=== PATIENT | female | born 2000 | race Caucasian/White ===

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

== ENCOUNTER 2021-07-21 09:27 | Emergency (ER) | payer BC ==
--- OUTSIDE RECORDS SUMMARY | 2021-07-21 09:30 | XMS REPORT | Continuity of Care Document ---
:1999 Author Organization [facility] t Address [address] [place] [address] [address]. [address] [place] [address] Care Team Providers Name Role Phone G_Paplibby Attending Clinician Unavailable Florledge_Keshia Attending Clinician Unavailable DAVIDA Attending Clinician Unavailable Rafaela WILKERSON Attending Clinician Unavailable Shaun MENESES Attending Clinician Unavailable [facility] Attending Clinician Unavailable JODI Attending Clinician Unavailable Sabrina Falk Attending Clinician G_Papkortneys Admitting Clinician Unavailable Florledge_L Admitting Clinician Unavailable DAVIDA Admitting Clinician Unavailable Payers Payer Name Policy Type Policy Number Effective Date Expiration Date S g[place] [id number] 2020 00:00:00 [place] [id number] 2019 00:00:00 OUT OF STATE UMR [id number] 2017 00:00:00 Problems Condition Condition Condition Status Onset Resolution Last Treating Co mments Source Name Details Category Date Date Treatment Clinician Date Endometrio Endometrio Problem Active [facility]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 sis of 3-10 da pelvis Pelvis 00:00: Medical 00 Group 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 Dysmenorrh 2-10 da ea ea 00:00: Medical 00 Group Menorrhagi Menorrhagi Problem Active [facility] a a 2-10 da 00:00: Medical 00 Group 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 arr?Syndro 8-31 da me me 00:00: Medical 00 Group 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 324 da 00:00: Medical Group Insomnia Insomnia Problem Active [facility] 324 da 00:00: Medical Group Nerve Nerve Problem Active [facility] injury Injury 324 da 00:00: Medical 00 Group Allergies, Adverse Reactions, Alerts Allergy Allergy Status Severity Reaction(s) Onset Inactive Treating Comm ents Source Name Type Date Date Clinician PROMETHA DRUG Active [facility] ZINE HCL INGREDI 09-30 ity of 00:00: [address] Branch Phenerga Allergy Active [place] to da substan [facility] e Group Social History Smoking Status Start Date Stop Date Source Never Smoker [facility] Medications Ordered Filled Start Stop Current Ordering Indication Dosage Frequency Signature Comments Components Source Medication Medication Date Date Medication? Clinician (SIG) Name Name albuterol albuterol No albuterol [facility] sulfate HFA sulfate HFA sulfate da 90 90 HFA 90 Medical mcg/actuati mcg/actuati mcg/actuat Group on aerosol on aerosol ion inhaler inhaler aerosol INHALE 2 INHALE 2 inhaler PUFFS BY PUFFS BY INHALE 2 MOUTH EVERY MOUTH EVERY PUFFS BY 6 HOURS 6 HOURS MOUTH NEEDED FOR NEEDED FOR EVERY 6 WHEEZING WHEEZING HOURS NEEDED FOR WHEEZING ciprofloxac ciprofloxac No ciprofloxa [facility] in 500 mg in 500 mg carla 500 mg da tablet tablet tablet Medical Group ergocalcife ergocalcife No ergocalcif [place] rol rol sarai da (vitamin (vitamin (vitamin Med ical D2) 1,250 D2) 1,250 D2) 1,250 Group mcg (50,000 mcg (50,000 mcg unit) unit) (50,000 capsule capsule unit) TAKE 1 TAKE 1 capsule CAPSULE BY CAPSULE BY TAKE 1 MOUTH 1 MOUTH 1 CAPSULE BY TIME EVERY TIME EVERY MOUTH 1 WEEK WEEK TIME EVERY WEEK Estarylla Estarylla No Estarylla [facility] 0.25 mg-35 0.25 mg-35 0.25 mg-35 da mcg tablet mcg tablet mcg tablet Medical TAKE 1 TAKE 1 TAKE 1 Group TABLET BY TABLET BY TABLET BY MOUTH EVERY MOUTH EVERY MOUTH DAY DAY EVERY DAY medroxyprog medroxyprog No medroxypro [facility] esterone 10 esterone 10 gesterone da mg tablet mg tablet 10 mg Medi piotr TAKE 2 TAKE 2 tablet Group TABLETS BY TABLETS BY TAKE 2 MOUTH EVERY MOUTH EVERY TABLETS BY DAY FOR 21 DAY FOR 21 MOUTH DAYS DAYS EVERY DAY FOR 21 DAYS medroxyprog medroxyprog No medroxypro [facility] esterone 5 esterone 5 gesterone da mg tablet mg tablet 5 mg Medic al TAKE 1 TAKE 1 tablet Group TABLET BY TABLET BY TAKE 1 MOUTH EVERY MOUTH EVERY TABLET BY DAY DAY MOUTH EVERY DAY omeprazole omeprazole No omeprazole [facility] 40 mg 40 mg 40 mg da capsule,del capsule,del capsule,de Medical ayed ayed layed Group release release release pregabalin pregabalin No pregabalin [facility] 75 mg 75 mg 75 mg da capsule capsule capsule Medica l TAKE 1 TAKE 1 TAKE 1 Group CAPSULE BY CAPSULE BY CAPSULE BY MOUTH THREE MOUTH THREE MOUTH TIMES DAILY TIMES DAILY THREE NEEDED NEEDED TIMES DAILY NEEDED venlafaxine venlafaxine No venlafaxin [facility] ER 37.5 mg ER 37.5 mg e ER 37.5 da capsule,ext capsule,ext mg M edical ended ended capsule,ex Group release 24 release 24 tended hr TAKE 1 hr TAKE 1 release 24 CAPSULE BY CAPSULE BY hr TAKE 1 MOUTH DAILY MOUTH DAILY CAPSULE BY MOUTH DAILY zolpidem ER zolpidem ER No zolpidem [facility] 12.5 mg 12.5 mg ER 12.5 mg da tablet,exte tablet,exte tablet,ext Medical nded nded ended Group release,mul release,mul release,mu tiphase tiphase ltiphase Vital Signs Vital Name Observation Time Observation Value Comments Source BP Diastolic 2021-06-23 00:00:00 80 mm[facility]Hg[facility] Height 2021-06-23 00:00:00 63 [in_i] [facility] BMI (Body Mass 2021-06-23 00:00:00 19.3 kg/m2 [facility] Medical Index) Group BP Systolic 2021-06-23 00:00:00 123 mm[Hg] [facility] Body Weight 2021-06-23 00:00:00 108.7 [lb_av] [facility] BP Diastolic 2021-05-27 00:00:00 83 mm[Hg] [facility] Height 2021-05-27 00:00:00 63 [in_i] [facility] BMI (Body Mass 2021-05-27 00:00:00 19 kg/m2 [facility] Medical Index) Group BP Systolic 2021-05-27 00:00:00 121 mm[Hg] [facility] Body Weight 2021-05-27 00:00:00 107.5 [lb_av] [facility] BP Diastolic 2021-02-01 00:00:00 76 mm[Hg] [facility] Height 2021-02-01 00:00:00 63 [in_i] [facility] BMI (Body Mass 2021-02-01 00:00:00 19.9 kg/m2 [facility] Medical Index) Group BP Systolic 2021-02-01 00:00:00 115 mm[Hg] [facility] Body Weight 2021-02-01 00:00:00 112.6 [lb_av] [facility] BP Diastolic 2020-12-14 00:00:00 79 mm[Hg] [facility] Height 2020-12-14 00:00:00 63 [in_i] [facility] BMI (Body Mass 2020-12-14 00:00:00 19.4 kg/m2 [facility] Medical Index) Group BP Systolic 2020-12-14 00:00:00 115 mm[Hg] [facility] Body Weight 2020-12-14 00:00:00 109.4 [lb_av] [facility] BP Diastolic 2020-10-19 00:00:00 70 mm[Hg] [facility] Height 2020-10-19 00:00:00 63 [in_i] [facility] BMI (Body Mass 2020-10-19 00:00:00 19.1 kg/m2 [facility] Medical Index) Group BP Systolic 2020-10-19 00:00:00 113 mm[Hg] [facility] Body Weight 2020-10-19 00:00:00 108 [lb_av] [facility] BP Diastolic 2020-10-05 00:00:00 77 mm[Hg] [facility] Height 2020-10-05 00:00:00 63 [in_i] [facility] BMI (Body Mass 2020-10-05 00:00:00 19.1 kg/m2 [facility] Medical Index) Group BP Systolic 2020-10-05 00:00:00 115 mm[Hg] [facility] Body Weight 2020-10-05 00:00:00 107.6 [lb_av] [facility] BP Diastolic 2020-08-31 00:00:00 78 mm[Hg] [facility] Height 2020-08-31 00:00:00 63 [in_i] [facility] BP Systolic 2020-08-31 00:00:00 119 mm[Hg] [facility] BP Diastolic 2020-07-07 00:00:00 82 mm[Hg] [facility] Height 2020-07-07 00:00:00 63 [in_i] [facility] BMI (Body Mass 2020-07-07 00:00:00 18.6 kg/m2 [facility] Medical Index) Group BP Systolic 2020-07-07 00:00:00 126 mm[Hg] [facility] Body Weight 2020-07-07 00:00:00 105 [lb_av] [facility] Procedures Procedure Date / Time Performing Clinician Source Performed unlisted imaging order 2021-02-01 00:00:00 [facility] US, transvaginal 2020-10-05 00:00:00 Kym Cervantes ed[facility] Group Laparoscopy 2015-04-16 00:00:00 Kym Carbajal dical Group [facility] Plan of Care Planned Activity Planned Date Details Comments Source Diagnostic Test 2021-06-23 pap, LB + CT/NG + Prasanthr da Medical Pending 00:00:00 reflex HR HPV Group [code = pap, LB + CT/NG + reflex HR HPV] Future Appointment 2021-08-04 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 [phone] 2021-06-21 2021-06-21 Outpatient G_Pappas MMG MMG [id number] [facility] 06:26:00 06:26:00 0309 Medical Group 2021-06-21 2021-06-21 Outpatient G_Pappas MMG MMG [id number] [facility] 06:23:00 06:23:00 0308 Medical Group 2021-06-15 2021-06-15 Outpatient G_Pappas MMG MMG [id number] [facility] 04:01:00 04:01:00 0302 Medical Group 2021-05-27 2021-05-27 Outpatient G_Pappas MMG MMG [id number] [facility] 09:22:00 09:22:00 0211 Medical Group 2021-05-27 2021-05-27 Tommy [facility] [place] - [id number] M jocelyngor 00:00:00 00:00:00 Discovery ada Rizvi MD: [address] [place] [phone] , Ph. [phone] 2021-05-23 2021-05-23 Outpatient Rutledge_L MMG MMG [id number] [facility] 11:11:00 11:11:00 0207 Medical Group 2021-05-12 2021-05-12 Outpatient LISTER_MELI BK [facility] [id number] [facility] 11:57:00 11:57:00 SSA [facility] 2021-02-01 2021-02-01 Outpatient Rutledge_L MMG MMG [id number] [place] 10:44:00 10:44:00 1019 Medical Group 2021-02-01 2021-02-01 Arlin MMG [place] - [id number] M [facility] 00:00:00 00:00:00 Discovery Jeff [facility]: [address] [address] , Ph. [phone] 2021-01-31 2021-01-31 Outpatient Rutledge_L MMG MMG [id number] [place] 09:03:00 09:03:00 1018 [facility] 2020-12-14 2020-12-14 Outpatient Rutledge_L MMG MMG [id number] [place] 10:22:00 10:22:00 0831 [facility] 2020-12-14 2020-12-14 Arlin [facility] [place] - [id number] [facility] 00:00:00 00:00:00 Discovery Jeff [facility]: [address] [address] , Ph. [phone] 2020-10-19 2020-10-19 Outpatient Rutledge_L MMG MMG [id number] [place] 02:43:00 02:43:00 0706 Medical [facility] 2020-10-19 2020-10-19 Radha [facility] [place] - [id number] atagor 00:00:00 00:00:00 Yunior Yoder [facility] keshia VALDEZ: [address] [place] [address], [place] [address] , Ph. [phone] 2020-10-13 2020-10-13 Outpatient Rutledge_L MMG MMG [id number] [place] 08:11:00 08:11:00 0630 [facility] 2020-10-05 2020-10-05 Outpatient Rutledge_L MMG MMG [id number] [place] 10:22:00 10:22:00 06 da Medical Group 2020-10-05 2020-10-05 Radha MMG [place] - [id number] M [facility] 00:00:00 00:00:00 Yunior Yoder [facility] l MD: [address] [address] , Ph. [phone] 2020-10-04 2020-10-04 Outpatient Rutledge_L MMG MMG [id number] [place] 02:59:00 02:59:00 0621 [facility] 2020-09-17 2020-09-17 Outpatient Rutledge_L MMG MMG [id number] [place] 01:01:00 01:01:00 0604 [facility] 2020-08-31 2020-08-31 Outpatient Rutledge_L MMG MMG [id number] [place] 10:06:00 10:06:00 0518 [facility] 2020-08-31 2020-08-31 Radha MM [place] - [id number] M [facility] 00:00:00 00:00:00 Yunior Yoder [facility] keshia MD: [address] [address] , Ph. [phone] 2020-07-30 2020-07-30 Outpatient Rutledge_L MMG MMG [id number] [place] 10:41:00 10:41:00 0416 [facility] 2020-07-13 2020-07-13 Outpatient Rutledge_L MMG MMG [id number] [place] 09:28:00 09:28:00 0330 [facility] 2020-07-07 2020-07-07 Outpatient Rutledge_L MMG MMG [id number] [place] 09:57:00 09:57:00 0324 [facility] 2020-07-07 2020-07-07 Radha MM [place] - [id number] M [facility] 00:00:00 00:00:00 Lesley Wheeler MD: 600 [facility] [address], [place] [address] , Ph. [phone] 2020-06-07 2020-06-07 Outpatient German MM MM [id number] [facility] 11:18:00 11:18:00 0222 [facility] 2019-12-17 2019-12-17 Outpatient Mp WILKERSON [facility] [id number] Univers 14:30:00 14:30:00 SHYLA [facility] 2019-12-17 2019-12-17 Outpatient Mp WILKERSON [facility] [id number] Univers 14:30:00 14:30:[id number] [place] [address] 2019-07-19 2019-07-19 Telephone ACACIA Dunn [id number] 00:00:00 00:00:00 Shereen ORDAZ [id number] [facility] [id number] 2019-07-16 2019-07-16 Urgent Pob1, Acute [facility] [id number] 14:17:02 15:38:12 [facility] Health [id number] [place] [id number] Professio [phone] nal [phone] 2019-07-16 2019-07-16 Outpatient R [facility] [id number] Univers 12:00:00 12:00:00 [facility] 2019-07-16 2019-07-16 Outpatient R JODI [facility] [id number] Univers 12:00:00 12:00:00 SALVATORE [facility] 2019-07-16 2019-07-16 Telephone Deya [facility] [id number] 00:00:00 00:00:00 [facility] [id number] [place] [id number] Professio [phone] nal [phone] [address] One Results Test Description Test Time Test Comments Results Result Comments Source Microscopic observation [Identifier] in Vaginal fluid by Wet 2021-05-27 09:23:13 preparation Test Item Value Reference Range Interpretation Comme nts Clue Cells (test code = Clue Cells) negative WBCs (test code = WBCs) negative Trichomonads (test code = Trichomonads) negative Epithelial cells (test code = Epithelial cells) normal RBCs (test code = RBCs) negative [facility] Group[facility]scopic observation [Identifier] in Vaginal fluid by Wet [id number] 09:23:13 Test Item Value Reference Range Interpretation Comments Clue Cells (test code = Clue Cells) negative WBCs (test code = WBCs) negative Trichomonads (test code = negative Trichomonads) Epithelial cells (test code = normal Epithelial cells) RBCs (test code = RBCs) negative [facility] GroupUrinalysis macro (dipstick) panel - [id number] 08:50:28 Test Item Value Reference Range Interpretation Comments Leukocytes (test code = Leukocytes) Negative Nitrite (test code = Nitrite) negative Urobilinogen (test code = .2 Urobilinogen) Protein (test code = Protein) Negative pH (test code = pH) 6.5 Blood (test code = Blood) Negative Specific [place] (test code = 1.020 Specific [place]) Ketone (test code = Ketone) Negative Bilirubin (test code = Bilirubin) Negative Glucose (test code = Glucose) Negative Appearance (test code = Appearance) Clear Color (test code = Color) Yellow [facility] GroupUrinalysis macro (dipstick) panel - [id number] 08:50:28 Test Item Value Reference Range Interpretation Comments Leukocytes (test code = Leukocytes) Negative Nitrite (test code = Nitrite) negative Urobilinogen (test code = .2 Urobilinogen) Protein (test code = Protein) Negative pH (test code = pH) 6.5 Blood (test code = Blood) Negative Specific [place] (test code = 1.020 Specific [place]) Ketone (test code = Ketone) Negative Bilirubin (test code = Bilirubin) Negative Glucose (test code = Glucose) Negative Appearance (test code = Appearance) Clear Color (test code = Color) Yellow [facility]ouppregnancy test, [id number] 08:49:52 Test Item Value Reference Range Interpretation Comments Test (test code = negative Test) [facility] test, [id number] 08:49:52 Test Item Value Reference Range Interpretation Comments Test (test code = negative Test) [facility] W Auto Differential panel - [id number] 08:38:00 Test Item Value Reference Range Interpretation Comments white blood count (test code = 6.4 K/uL 4.0-11.5 white blood count) red blood count (test code = red 4.61 M/uL 3.80-5.20 blood count) hemoglobin (test code = 13.3 g/dL 10.5-15.7 hemoglobin) hematocrit (test code = 41.6 % 34.0-50.0 hematocrit) MCV [Entitic volume] (test code = 90.2 fL 86.0-100.0 24829-4) mean corpuscular hemoglobin (test 28.9 pg 26.2-33.4 code = mean corpuscular hemoglobin) mean corpuscular HGB conc (test 32.0 g/dL 30.0-34.0 code = mean corpuscular HGB conc) red cell distribution width (test 13.0 % 12.0-15.5 code = red cell distribution width) platelet count (test code = 299 K/uL 165-450 platelet count) mean platelet volume (test code = 9.3 fL 9.4-12.6 L mean platelet volume) Segmented neutrophils/100 53.7 % 44.4-80.1 leukocytes in Blood (test code = 12147-1) Immature granulocytes [#/volume] 0.02 K/uL 0.00-0.03 in Blood (test code = 74379-6) lymphocyte% (test code = 36.8 % 10.0-50.0 lymphocyte%) mono % (test code = mono %) 6.8 % 3.6-12.0 eos % (test code = eos %) 1.3 % 0.0-5.4 Basophils/100 leukocytes in 1.1 % 0.1-1.2 Specimen (test code = 22304-9) Band form neutrophils [#/volume] 3.42 K/uL 1.56-6.13 in Blood (test code = 92333-8) Lymphocytes [#/volume] in Specimen 2.34 K/uL 1.18-3.74 by Automated count (test code = 23472-5) mono # (test code = mono #) 0.43 K/uL 0.24-0.86 eos # (test code = eos #) 0.08 K/uL 0.04-0.36 basophil # (test code = basophil 0.07 K/uL 0.01-0.08 #) NRBC% (test code = NRBC%) 0 /100 WBC 0-0.2 NRBC# (test code = NRBC#) 0 K/uL [facility] Center[facility] panel, method unspecified - [id number] 00:00:00NeutrophilsBandLymphocyteAtypical LymphMonocyteEosinophilBasophilMetamyelocyteMyelocytePromyelocyteBlastsNucleated Red Blood CellAbs Neutrophil Count (Man)Abs Lymph Count (Man)Abs Monocyte Count (Man)Abs Eosinophil Count (Man)Abs Basophil Count (Man)Platelet EstimatePlatelet MorphologyAnisocytosisMicrocytosisMaForrest General Hospital Urinalysis macro (dipstick) panel - [id number] 10:12:00 Test Item Value Reference Range Interpretation Comments Leukocytes (test code = Negative Leukocytes) Nitrite (test code = negative Nitrite) Urobilinogen (test code = .2 Urobilinogen) Protein (test code = Negative Protein) pH (test code = pH) 5.5 Blood (test code = Blood) Hemolyzed: Trace Specific [place] (test code 1.025 = Specific [place]) Ketone (test code = Ketone) Negative Bilirubin (test code = Negative Bilirubin) Glucose (test code = Negative Glucose) Appearance (test code = Clear Appearance) Color (test code = Color) Yellow [facility] Centerpregnancy test, [id number] 10:11:00 Test Item Value Reference Range Interpretation Comments Test (test code = negative Test) [facility] CenterCB [facility] Auto Differential panel - [id number] 08:46:00 Test Item Value Reference Range Interpretation Comments white blood count (test code = 9.4 K/uL 4.0-11.5 white blood count) red blood count (test code = red 4.58 M/uL 3.80-5.20 blood count) hemoglobin (test code = 13.5 g/dL 10.5-15.7 hemoglobin) hematocrit (test code = 41.9 % 34.0-50.0 hematocrit) MCV [Entitic volume] (test code = 91.5 fL 86-100 04672-3) mean corpuscular hemoglobin (test 29.5 pg 26.2-33.4 code = mean corpuscular hemoglobin) mean corpuscular HGB conc (test 32.2 g/dL 30-34 code = mean corpuscular HGB conc) red cell distribution width (test 12.4 % 12.0-15.5 code = red cell distribution width) platelet count (test code = 288 K/uL 165-450 platelet count) mean platelet volume (test code = 9.2 fL 9.4-12.6 L mean platelet volume) Segmented neutrophils/100 57.1 % 44.4-80.1 leukocytes in Blood (test code = 48053-0) Immature granulocytes [#/volume] 0.0 K/uL 0.0-0.03 in Blood (test code = 29233-8) lymphocyte% (test code = 32.6 % 10.0-50.0 lymphocyte%) mono % (test code = mono %) 8.3 % 3.6-12.0 eos % (test code = eos %) 0.8 % 0.0-5.4 Basophils/100 leukocytes in 0.8 % 0.1-1.2 Unspecified specimen (test code = 14005-4) Band form neutrophils [#/volume] 5.38 K/uL 1.56-6.13 in Blood (test code = 93485-5) Lymphocytes [#/volume] in 3.1 K/uL 1.18-3.74 Unspecified specimen by Automated count (test code = 52991-7) mono # (test code = mono #) 0.78 K/uL 0.24-0.86 eos # (test code = eos #) 0.08 K/uL 0.04-0.36 basophil # (test code = basophil 0.08 K/uL 0.01-0.08 #) NRBC% (test code = NRBC%) 0 /100 WBC 0-0.2 NRBC# (test code = NRBC#) 0 K/uL [facility] CenterDifferential panel, method unspecified - [id number] 00:00:00NeutrophilsBandLymphocyteAtypical LymphMonocyteEosinophilBasophilMetamyelocyteMyelocyteBlastsNucleated Red Blood CellDifferential CommentAbs Neutrophil Count (Man)Abs Lymph Count (Man)Abs Monocyte Count (Man)Abs Eosinophil Count (Man)Abs Basophil Count (Man)Platelet EstimatePlatelet MorphologyHypochrom asiaPoikilocytosisAnisocytosisMicrocytosisMacrocytosisSpherocyteSchistocytesOval ocytesToxic GranulationBurr CellsAcanthocytesHypersegmented PolysRouleauSmudge CellsWest [facility] Medical CenterChoriogonadotropin.beta subunit [Units/volume] in Serum or [id number] 06:50:00 Test Item Value Reference Range Interpretation Comments HCG quantitative (test code = HCG <0.1 0-5 quantitative) [facility]
[2021-07-21] MEDS ORDERED: MAGNES/ALUMIN/SIMET 30ML UCUP ONE (10:13)
[2021-07-21] MEDS ORDERED: LIDOCAINE VISCOUS 2% SOLN 15 ML UDC ONE (10:13)
--- NOTE | 2021-07-21 10:49 | RAD REPORT ---
EXAM DESCRIPTION: RAD - Chest Single View - 07/21/2021 10:22 am CLINICAL HISTORY: chest pain, fever COMPARISON: Chest Single View dated 04/12/2018; Chest Pa And Lat (2 Views) dated 07/29/2016; Chest Pa And Lat (2 Views) dated 12/13/2015; CHEST PA AND LAT 2 VIEW dated 02/14/2013 FINDINGS: Lines: None. Lungs: No evidence of edema or pneumonia. Pleural: No significant pleural effusions or pneumothorax. Cardiac: The heart size is within normal limits. Bones: No acute fractures. Other: Contrast is present within the colon. IMPRESSION: No acute cardiopulmonary disease.
--- NOTE | 2021-07-21 12:22 | ER ---
Nurse's Notes [facility] Name: Kiana Mccain Age: 21 yrs Sex: Female : 2000 Arrival Date: 07/21/2021 Time: 09:28 Bed 19 Private MD: YVETTE DONALDSON Diagnosis: Acute pharyngitis, unspecified;Dysphagia, unspecified Presentation: 07/21 09:30 Chief complaint: Parent and/or Guardian states: HEADACHE, SORE THROAT, CHEST PRESSURE. bp SEEN FOR SAME MX TIMES RECENTLY. Coronavirus screen: At this time, the client does not indicate any symptoms associated with coronavirus-19. Ebola Screen: No symptoms or risks identified at this time. Initial Sepsis Screen: Does the patient meet any 2 criteria? No. Patient's initial sepsis screen is negative. Does the patient have a suspected source of infection? No. Patient's initial sepsis screen is negative. Risk Assessment: Do you want to hurt yourself or someone else? Patient reports no desire to harm self or others. Onset of symptoms is unknown. 09:30 Method Of Arrival: Ambulatory bp 09:30 Acuity: BILL 3 bp Triage Assessment: 09:45 Headache History: The patient has had previous headaches and this one is similar to bp previous episodes. General: Appears in no apparent distress. uncomfortable, Behavior is cooperative, appropriate for age, anxious. Pain: Complains of pain in neck Pain currently is 4 out of 10 on a pain scale. Pain began 2-3 days ago. Also complains of no other associated symptoms. EENT: No deficits noted. Neuro: Reports headache. Cardiovascular: No deficits noted. Respiratory: No deficits noted. GI: No deficits noted. : No signs and/or symptoms were reported regarding the genitourinary system. Derm: No deficits noted. Musculoskeletal: No deficits noted. Historical: - Allergies: 09:30 Adhesives; bp 09:30 Cinnamon; bp 09:30 Phenergan; bp - Home Meds: 09:30 Lyrica Oral 2 caps [Active]; Ambien Oral [Active]; bp - PMHx: 09:30 chronic constipation; Endometrosis; gullian barre syndrome; Ovarian cyst; bp - Immunization history:: Adult Immunizations up to date. - Social history:: Smoking status: Patient denies any tobacco usage or history of. Screenin:51 Abuse screen: Denies threats or abuse. Denies injuries from another. Nutritional bp screening: No deficits noted. Tuberculosis screening: No symptoms or risk factors identified. Fall Risk None identified. Assessment: 09:51 General: SEE TRIAGE NOTE. bp 11:17 Reassessment: No changes from previously documented assessment. Patient and/or family bp updated on plan of care and expected duration. Pain level reassessed. GI C/S PENDING. 12:36 Reassessment: PT D/C HOME AMBULATORY WITH FAMILY, DX WITH DYSPHAGIA. bp Vital Signs: 09:30 BP 120 / 84; Pulse 81; Resp 17; Temp 99; Pulse Ox 99% ; bp 11:17 BP 118 / 76; Pulse 75; Resp 16; Pulse Ox 99% ; bp 12:36 BP 115 / 81; Pulse 67; Resp 17; Pulse Ox 99% ; bp ED Course: 09:28 Patient arrived in ED. am2 09:28 YVETTE DONALDSON is Private Physician. am2 09:29 Mikey Goldberg PA is PHCP. jmm 09:29 Aaron Restrepo MD is Attending Physician. jmm 09:38 Aram Ford, RN is Primary Nurse. bp 09:40 Triage completed. bp 09:50 Arm band placed on. bp 09:52 Patient has correct armband on for positive identification. Bed in low position. Call bp light in reach. Side rails up X2. Adult w/ patient. 10:25 Chest Single View XRAY In Process Unspecified. EDMS 12:19 Higinio Fan MD is Referral Physician. jmm 12:36 No provider procedures requiring assistance completed. Patient did not have IV access bp during this emergency room visit. Administered Medications: 10:05 Drug: GI Cocktail without - (Maalox Suspension 30 ml, Lidocaine Liquid 2 % 15 bp ml) Route: PO; 12:37 Follow up: Response: No adverse reaction; Marked relief of symptoms bp Outcome: 12:21 Discharge ordered by . jmm 12:36 Discharged to home ambulatory, with family. bp 12:36 Condition: stable 12:36 Discharge instructions given to patient, family, Instructed on discharge instructions, follow up and referral plans. medication usage, Demonstrated understanding of instructions, follow-up care, medications, Prescriptions given X 1. 12:37 Patient left the ED. bp Signatures: Dispatcher [employer] EDMS Mikey Goldberg PA PA jmm Moreno, Amanda am2 Peltier, Brian, RN RN bp
--- NOTE | 2021-07-21 12:22 | EDPHYS ---
Physician Documentation [facility] Name: Kiana Mccain Age: 21 yrs Sex: Female : 2000 Arrival Date: 07/21/2021 Time: 09:28 Bed 19 Private MD: YVETTE DONALDSON ED Physician Aaron Restrepo HPI: 07/21 09:38 This 21 yrs old Female presents to ER via Ambulatory with complaints of Headache, Sore jmm Throat, Chest Pressure. 09:38 The patient presents with sore throat. jmm 09:38 Onset: The symptoms/episode began/occurred gradually. Modifying factors: The symptoms jmm are alleviated by nothing, the symptoms are aggravated by nothing. Associated signs and symptoms: Pertinent positives: chest pain, fever. Is a 21-year-old female with a history of chronic constipation, endometriosis, Guyon Foley syndrome the presents to the ED with complaints of fever, chest pain, sore throat. Patient is currently on a course of oral antibiotics and steroids. Patient states that she has difficulty swallowing. 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 Recently had a study that showed slowed esophageal motility. Denies vomiting. . Historical: - Allergies: 09:30 Adhesives; bp 09:30 Cinnamon; bp 09:30 Phenergan; bp - Home Meds: 09:30 Lyrica Oral 2 caps [Active]; Ambien Oral [Active]; bp - PMHx: 09:30 chronic constipation; Endometrosis; gullian barre syndrome; Ovarian cyst; bp - Immunization history:: Adult Immunizations up to date. - Social history:: Smoking status: Patient denies any tobacco usage or history of. ROS: 09:38 Constitutional: Positive for fever. jmm 09:38 ENT: Positive for 09:38 ENT: Positive for sore throat. 09:38 Cardiovascular: Positive for chest pain. 09:38 Respiratory: Positive for cough. 09:38 Abdomen/GI: Negative for vomiting. 09:38 Neuro: Positive for headache. 09:38 All other systems are negative. Exam: 09:38 Constitutional: This is a well developed, well nourished patient who is awake, alert, jmm and in no acute distress. Head/Face: atraumatic. Eyes: EOMI, no conjunctival erythema appreciated 09:38 Neck: Trachea midline, Supple Chest/axilla: Normal chest wall appearance and motion. Cardiovascular: Regular rate and rhythm. No edema appreciated Respiratory: Normal respirations, no respiratory distress appreciated Abdomen/GI: Non distended, soft Back: Normal ROM Skin: General appearance color normal MS/ Extremity: Moves all extremities, no obvious deformities appreciated, no edema noted to the lower extremities Neuro: Awake and alert Psych: Behavior is normal, Mood is normal, Patient is cooperative and pleasant 09:38 ENT: Posterior pharynx: erythema, that is moderate. Vital Signs: 09:30 BP 120 / 84; Pulse 81; Resp 17; Temp 99; Pulse Ox 99% ; bp 11:17 BP 118 / 76; Pulse 75; Resp 16; Pulse Ox 99% ; bp 12:36 BP 115 / 81; Pulse 67; Resp 17; Pulse Ox 99% ; bp MDM: 09:38 Patient medically screened. [facility] 12:18 Data reviewed: vital signs, nurses notes. Counseling: I had a detailed discussion with sandra the patient and/or guardian regarding: the historical points, exam findings, and any diagnostic results supporting the discharge/admit diagnosis, lab results, radiology results, the need for outpatient follow up, to return to the emergency department if symptoms worsen or persist or if there are any questions or concerns that arise at home. ED course: Patient was given a GI cocktail which did relieve the patient's symptoms, along with chest discomfort. EKG did not show any concerning ST changes, arrhythmias. I currently do not suspect CAD. Patient advised to follow-up with Dr. Fan for further evaluation otherwise given strict return precautions. Patient and mother understood and agreed with plan of care.. 07/21 09:43 Order name: Strep; Complete Time: 12:10 [facility] 07/21 09:41 Order name: Chest Single View XRAY; Complete Time: 10:49 [facility] 07/21 09:57 Order name: Influenza Screen (A ; Complete Time: 10:49 [facility] 07/21 11:56 Order name: Throat Culture [facility] 07/21 09:41 Order name: EKG - Nurse/Tech; Complete Time: 10:00 [facility] Administered Medications: 10:05 Drug: GI Cocktail without - (Maalox Suspension 30 ml, Lidocaine Liquid 2 % 15 bp ml) Route: PO; 12:37 Follow up: Response: No adverse reaction; Marked relief of symptoms bp Disposition: 17:13 Co-signature as Attending Physician, Aaron Restrepo MD I agree with the assessment and kdr plan of care. Disposition Summary: 07/21/21 12:21 Discharge Ordered Location: Home [facility] Condition: Stable jm Diagnosis - Acute pharyngitis, unspecified jmm - Dysphagia, unspecified jmm Followup: [facility] - With: Higinio Fan MD - When: 2 - 3 days - Reason: Recheck today's complaints, Continuance of care, Re-evaluation by your physician Discharge Instructions: - Discharge Summary Sheet [facility] - Dysphagia m - Pharyngitis [facility] Forms: - Medication Reconciliation Form [facility] - Thank You Letter [facility] - Antibiotic Education [facility] - Prescription Opioid Use [facility] - Work release form em1 Prescriptions: - sucralfate 100 mg/mL Oral suspension - take 10 milliliter by ORAL route 4 times per day; 200 milliliter; Refills: 0, jmm Product Selection Permitted Signatures: Dispatcher [employer] [facility] Aaron Restrepo MD MD kdr Mikey Goldberg PA PA Aram Leal, RN RN bp Corrections: (The following items were deleted from the chart) 09:57 09:41 COVID-19/FLU [id number] ordered. [facility] MARTINAME
[2021-07-21 16:58] VITALS: TEMP 99; O2SAT 99
[2021-07-21 17:01] VITALS: BP 115/81
--- NOTE | 2021-07-22 07:49 | EKG ---
Test Date: 2021-07-21 Test Time: 09:41:19 Drum Puller: [place] MEASUREMENT RESULTS: Intervals: Rate: 74 NH: 156 QRSD: 98 QT: 382 QTc: 424 [place]: P: 76 NH: 156 QRS: 89 T: 80 INTERPRETIVE STATEMENTS: Normal sinus rhythm Normal ECG Compared to ECG 07/25/2018 21:44:04 No significant changes Electronically Signed On 07-22-21 07:46:17 CDT by Wes Guevara
== END 2021-07-21 12:37 | disposition home or self-care (01) ==
LOC: ER 09:27
DX: J02.9 Acute pharyngitis, unspecified (principal); R13.10 Dysphagia, unspecified; R07.9 Chest pain, unspecified; G61.0 Guillain-Barre syndrome; Z91.018 Allergy to other foods; Z91.048 Other nonmedicinal substance allergy status
CPT/HCPCS: 71045; 87070; 87081; 87804; 93005; 99283

== ENCOUNTER 2023-09-15 15:58 | Emergency (ER) | payer BC ==
--- OUTSIDE RECORDS SUMMARY | 2023-09-15 16:17 | XMS REPORT | Continuity of Care Document ---
Author Name Unknown Address [address] [place] [address] [facility] Address [address] [place] [address] Care Team Providers Care Process Control Programmer Name Role Phone JAKE KILPATRICK Attending Clinician Unavaila ble LISTER_MELISSA Attending Clinician Unavailable G_Pappas Attending Clinician Unavailable [email or web address]_S Attending Clinician Unavaila ROOSEVELT Higgins Attending Clinician Unavailabl e Rutledge_L Attending Clinician Unavailable ARLIN AGUILAR Attending Clinician Unavailable Radha Huerta Attending Clinician Unavaila SHYLA Solorio Attending Clinician Unavailable Shereen Dunn RN Attending Clinician Unavaila ble [facility] Attending Clinician Unav ericable SALVATORE ZAPATA Attending Clinician Unavailable Ramos Falk Attending Clinician [phone] MALAIKA HINOJOSA Attending Clinician Unavailable REILLY LEMA Attending Clinician Unavailable PITO HOLLINGSWORTH Attending Clinician Unavailab SOTERO Alonso Attending Clinician Unavailable LISTER_MELISSA Admitting Clinician Unavailable G_Pappas Admitting Clinician Unavailable [email or web address]_S Admitting Clinician Unavaila ble Rutledge_L Admitting Clinician Unavailable Payers Payer Name Policy Type Policy Number Effective Date Expirati on Date Source [place] [id number] 2020 00:00:00 [place] OUT OF STATE [id number] 2019 00:00:00 [facility] [id number] 2017 00:00:00 Problems Condition Name Condition Details Condition Category Status Onset Date Resolution Date Last Treatment Date Treating Clinician Comments Source 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 Problem Active 2-23 00:00: 00 [facility] Lower urinary tract symptoms Lower Urinary Tract Symptoms Problem Active 2-16 00:00: 00 [facility] Migraine Migraine Problem Active 1-16 00:00: 00 [facility] 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 Active 1-16 00:00: 00 [facility] Depressive disorder Depressive Disorder Problem Active 1-16 00:00: 00 [facility] Insomnia Insomnia Problem Active 1-16 00:00: 00 [facility] Endometrio sis of pelvis Endometrio sis of Pelvis Problem Active 3-10 00:00: 00 [facility] Secondary dysmenorrh ea Secondary Dysmenorrh ea Problem Active 2-10 00:00: 00 [facility] Menorrhagi a Menorrhagi a Problem Active 2-10 00:00: 00 [facility] 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 Active 8-31 00:00: 00 [facility] Depressive disorder Depressive Disorder Problem Active 3-24 00:00: 00 [facility] Insomnia Insomnia Problem Active 3-24 00:00: 00 [facility] Nerve injury Nerve Injury Problem Active 3-24 00:00: 00 [facility] R20.2 - PARESTHESI A OF SKIN Z86.6 - PERS R20.2 - PARESTHESI A OF SKIN Z86.6 - PERS Active 03/09/2020 [facility] Diagnosis Active 2019-04 00:01: 00 2020-04-30 15:41:00 Memyakov Johnson NUMBNESS TINGLING X 1 WEEK NUMBNESS TINGLING X 1 WEEK Active 02/27/2020 [place] Diagnosis Active 2019-04 08:00: 00 2020-03-05 22:35:00 Memoria keshia Johnson 4 MONTH F/U 4 MONTH F/U Active 01/22/2019 [facility] Diagnosis Active 2018-04 0 00:00: 00 2019-02-21 12:06:00 Memoria keshia Johnson G62.89 G62.89 Active 08/19/2018 [facility] Diagnosis Active 08-19 08:00: 00 2018-08-19 14:20:00 Memyakov Johnson PAIN PAIN Active 07/02/2018 [facility] Diagnosis Active 07-02 00:00: 00 2018-07-09 09:55:00 Memyakov Johnson FOLLOW UP AFTER D/C FOLLOW UP AFTER D/C Active 06/20/2018 [facility] Diagnosis Active 06-20 00:00: 00 2018-09-18 14:33:00 Memyakov Johnson GUILLAIN BARRE GUILLAIN BARRE Active 05/13/2018 [facility] Diagnosis Active 05-13 00:00: 00 2018-05-18 14:46:00 Memyakov Johnson 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) Active Problem 01/08/2022 [facility], [place] Problem Active 2022-01-08 04:14:09 Huma Johnson Headache (finding) Headache (finding) Active Problem 01/08/2022 [facility] [place] Problem Active 2022-01-08 04:14:09 Huma Johnson History of Guillain Franklin syndrome (situation ) History of Guillain Franklin syndrome (situation ) Active Problem 01/08/2022 [facility] [place] Problem Active 2022-01-08 04:14:09 Huma Johnson Paresthesi a (finding) Paresthesi a (finding) Active Problem 01/08/2022 [facility] [place] Problem Active 2022-01-08 04:14:09 Huma Johnson Peripheral nerve disease (disorder) Peripheral nerve disease (disorder) Active Problem 01/08/2022 [facility] [place] Problem Active 2022-01-08 04:14:09 Huma Johnson Lumbar radiculopa thy (disorder) Lumbar radiculopa thy (disorder) Active Problem 01/08/2022 [facility] [place] Problem Active 2022-01-08 04:14:09 Huma Johnson M54.16 - RADICULOPA THY, LUMBAR REGION M54.16 - RADICULOPA THY, LUMBAR REGION Active [facility] [place] Diagnosis Active 2021-07-30 15:30:00 Huma Johnson RESPIRATOR Y FAILURE, UNSP, UNSP W HYPOXI RESPIRATOR Y FAILURE, UNSP, UNSP W HYPOXI Active [facility] Diagnosis Active 2018-04-30 18:53:00 Huma Johnson Respirator y failure, unspecifie d, unspecifie d whether with hypoxia or hypercapni a Respirator y failure, unspecifie d, unspecifie d whether with hypoxia or hypercapni a 12/04/2018 [facility] 2018-12-04 15:02:45 [facility] 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 9 [facility] 2018-12-04 15:02:45 [facility]oria l [facility] Retention of urine, unspecifie d Retention of urine, unspecifie d 12/04/2018 [facility] 2018-12-04 15:02:45 Memoria l Alex Dehydratio n Dehydratio n 12/04/2018 [facility] 2018-12-04 15:02:45 Memoria l Alex Anxiety disorder, unspecifie d Anxiety disorder, unspecifie d 12/04/2018 [facility] 2018-12-04 15:02:45 Memoria l Alex Major depressive disorder, single episode, unspecifie d Major depressive disorder, single episode, unspecifie d 12/04/2018 [facility] 2018-12-04 15:02:45 Memoria l Alex Anemia in other chronic diseases classified elsewhere Anemia in other chronic diseases classified elsewhere 12/04/2018 [facility] 2018-12-04 15:02:45 [facility] Other foreign object in respirator y tract, part unspecifie d in causing asphyxiati on, initial encounter Other foreign object in respirator y tract, part unspecifie d in causing asphyxiati on, initial encounter 12/04/2018 [facility] 2018-12-04 15:02:45 Memoria l Alex Leakage of indwelling urethral catheter, initial encounter Leakage of indwelling urethral catheter, initial encounter 12/04/2018 [facility] 2018-12-04 15:02:45 [facility] Hypocalcem ia Hypocalcem ia 12/04/2018 [facility] [place] Problem 2018-12-04 15:02:45 Memoria l Alex Pneumonia due to Hemophilus influenzae Pneumonia due to Hemophilus influenzae 9 [facility] [place] Problem 2018-12-04 15:02:45 Memoria l Alex Acute and chronic respirator y failure with hypoxia Acute and chronic respirator y failure with hypoxia 12/04/2018 [facility] 2018-12-04 15:02:45 Memoria l Alex Acute and chronic respirator y failure with hypercapni a Acute and chronic respirator y failure with hypercapni a 12/04/2018 [facility] 2018-12-04 15:02:45 Memoria keshia Johnson Pneumoniti s due to inhalation of food and vomit Pneumoniti s due to inhalation of food and vomit 12/04/2018 [facility] 2018-12-04 15:02:45 Memoria keshia Johnson Sepsis, unspecifie d organism Sepsis, unspecifie d organism 9 [facility] 2018-12-04 15:02:45 Memoria l Alex Severe sepsis without septic shock Severe sepsis without septic shock 12/04/2018 [facility] 2018-12-04 15:02:45 Memoria keshia Johnson Hypo-osmol ality and hyponatrem ia Hypo-osmol ality and hyponatrem ia 12/04/2018 [facility] [place] Problem 2018-12-04 15:02:45 Memyakov Johnson Ileus, unspecifie d Ileus, unspecifie d 12/04/2018 [facility] 2018-12-04 15:02:45 Memyakov Johnson Candidal stomatitis Candidal stomatitis 12/04/2018 [facility] 2018-12-04 15:02:45 Memoria keshia Johnson Lyme disease, unspecifie d Lyme disease, unspecifie d 12/04/2018 [facility] 2018-12-04 15:02:45 Huma Johnson Unspecifie d protein-ca nhung malnutriti on Unspecifie d protein-ca nhung malnutriti on 12/04/2018 [facility] 2018-12-04 15:02:45 Huma Johnson Alkalosis Alkalosis 12/04/2018 [facility] 2018-12-04 15:02:45 Memoria keshia Johnson Other constipati on Other constipati on 12/04/2018 [facility] [place] Problem 2018-12-04 15:02:45 Memyakov Johnson Hypokalemi a Hypokalemi a 12/04/2018 [facility] 2018-12-04 15:02:45 Memyakov Johnson Acute respirator y failure with hypoxia Acute respirator y failure with hypoxia 11/07/2018 [facility] Problem 2018-11-07 14:20:27 Huma Johnson Dependence on respirator [ventilato r] status Dependence on respirator [ventilato r] status 11/07/2018 [place] Problem 2018-11-07 14:20:27 Huma Johnson Acidosis Acidosis 11/07/2018 [place] Problem 2018-11-07 14:20:27 Huma Johnson Dysphagia, unspecifie d Dysphagia, unspecifie d 11/07/2018 [place] Problem 2018-11-07 14:20:27 Huma Johnson Abnormal results of liver function studies Abnormal results of liver function studies 11/07/2018 [place] Problem 2018-11-07 14:20:27 Huma Johnson Anemia, unspecifie d Anemia, unspecifie d 11/07/2018 [place] Problem 2018-11-07 14:20:27 Huma Johnson Acute hypoxemic respirator y failure (disorder) Acute hypoxemic respirator y failure (disorder) Resolved Problem 01/08/2022 [facility], [facility] [place] [place] Problem Resolve d 2022-01-08 04:14:09 Huma Johnson Acute-on-c hronic respirator y failure (disorder) Acute-on-c hronic respirator y failure (disorder) Resolved Problem 01/08/2022 [facility], [facility] [place] [place] Problem Resolve d 2022-01-08 04:14:09 Huma Johnson Candidiasi s of mouth (disorder) Candidiasi s of mouth (disorder) Resolved Problem 01/08/2022 [facility], [facility] [place] [place] Problem Resolve d 2022-01-08 04:14:09 Huma Johnson Childhood obesity (disorder) Childhood obesity (disorder) Resolved Problem 01/08/2022 [facility], [facility] [place] [place] Problem Resolve d 2022-01-08 04:14:09 Huma Johnson 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, [facility], [facility] [place] [place] Problem Resolve d 2022-01-08 04:14:09 Memoria keshia Johnson Leukocytos is (disorder) Leukocytos is (disorder) Resolved Problem 01/08/2022 [facility], [facility] [place] [place] Problem Resolve d 2022-01-08 04:14:09 Memoria keshia Johnson Normocytic anemia (disorder) Normocytic anemia (disorder) Resolved Problem 01/08/2022 [facility], [facility] [place] [place] Problem Resolve d 2022-01-08 04:14:09 Memoria keshia Johnson Pneumonia (disorder) Pneumonia (disorder) Resolved Problem 01/08/2022 [facility], [facility] [place] [place] Problem Resolve d 2022-01-08 04:14:09 Memoria keshia Johnson Sinus tachycardi a (finding) Sinus tachycardi a (finding) Resolved Problem 01/08/2022 [facility], [facility] [place] [place] Problem Resolve d 2022-01-08 04:14:09 Memoria keshia Johnson Anxiety (finding) Anxiety (finding) Active Problem 01/08/2022 [facility], [facility] [place] [place] Problem Active 2022-01-08 04:14:09 Memoria keshia Johnson 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) Active Problem 01/08/2022 [facility], [facility] [place] [place] Problem Active 2022-01-08 04:14:09 Memoria keshia Johnson Dysphagia (disorder) Dysphagia (disorder) Active Problem 01/08/2022 [facility], [facility] [place] Problem Active 2022-01-08 04:14:09 Memoria keshia Johnson Intermitte nt claudicati on (disorder) Intermitte nt claudicati on (disorder) Active Problem 01/08/2022 [facility] [place] Problem Active 2022-01-08 04:14:09 Huma Johnson History of Past Illness Condition Name Condition Details Condition Category Status Onset Date Resolution Date Last Treatment Date Treating Clinician Comments Source Chronic ethmoidal sinusitis Chronic ethmoidal sinusitis 03/06/2020 03/08/2020 [facility] [place] Problem 2019-04 18:00: 00 2020-03-08 22:01:39 2020-03-08 22:01:39 Memyakov Johnson Polyneurop athy, unspecifie d Polyneurop athy, unspecifie d 03/06/2020 03/08/2020 [place] Problem 2019-04 18:00: 00 2020-03-08 22:01:39 2020-03-08 22:01:39 Huma Johnson Headache, unspecifie d Headache, unspecifie d 03/06/2020 03/08/2020 [place] Problem 2019-04 18:00: 00 2020-03-08 22:01:39 2020-03-08 22:01:39 Huma Johnson Guillain-B arre syndrome Guillain-B arre syndrome 05/30/2018 12/04/2018 [facility] [place] [place] Problem 2-14 05:13: 51 2018-12-04 15:02:45 2018-12-04 15:02:45 Huma Johnson Allergies, Adverse Reactions, Alerts Allergy Name Allergy Type Status Severity Reaction(s) Onset Date Inactive Date Treating Clinician Comments Source PROMETHA ZINE HCL DRUG INGREDI Active Other-Cmnt 09-30 00:00: 00 [facility] Phenerga n Allergy to substanc e Active Other [facility] Phenerga n<sup>1< /sup> Phenerga n<sup>1< /sup> Active Huma Johnson cinnamon cinnamon Active Huma Johnson Cinnamon Allergy to substanc e Active Severe Respiratory distress [facility] Social History Social Habit Start Date Stop Date Quantity Comments Source Social History 2018-04-14 07:22:51 2018-04-14 07:22:51 [facility] Smoking Status Start Date Stop Date Source Never Smoker [facility] Medications Ordered Medication Name Filled Medication Name Start Date Stop Date Current Medication? Ordering Clinician Indication Dosage Frequency Signature (SIG) Comments Components Source bromphenira mine-pseudo ephedrine-D M 2 mg-30 mg-10 mg/5 mL oral syrup bromphenira mine-pseudo ephedrine-D M 2 mg-30 mg-10 mg/5 mL oral syrup 06-01 00:00: 00 No bromphenir amine-pseu doephedrin e-DM 2 mg-30 mg-10 mg/5 mL oral syrup [facility] hydroxychlo roquine 200 mg tablet TAKE 1 TABLET BY MOUTH DAILY hydroxychlo roquine 200 mg tablet TAKE 1 TABLET BY MOUTH DAILY 06-01 00:00: 00 No hydroxychl oroquine 200 mg tablet TAKE 1 TABLET BY MOUTH DAILY [facility] Program pregabalin 75 mg oral capsule 2020-04 19:18: 00 Yes 75 mg = 1 cap, PO, BID, # 60 cap, 0 Refill(s) Huma Johnson gabapentin 300 MG Oral Capsule 2019-04 01:55: 00 Yes = 2 cap, PO, TID, # 180 cap, 2 Refill(s), Pharmacy: [facility] #[id number], 160.02, cm, 03/08/20 11:58:00 [employer], Height, 49.545, kg, 03/08/20 11:58:00 [employer], Weight Huma Johnson Azithromyci n 250 MG Oral Tablet [Zithromax] 2019-04 06:02: 00 Yes See Instructio ns, Take 2 tablets PO the first day then 1 tablet PO days 2-5 PO 5 day, # 6 tab, 0 Refill(s) Huma Johnson 12 HR cetirizine hydrochlori de 5 MG / Pseudoephed rine Hydrochlori de 120 MG Extended Release Tablet [Zyrtec-D] 2019-04 06:02: 00 Yes 1 tab, PO, BID, # 20 tab, 0 Refill(s) Huma Johnson Acetaminoph en 300 MG / butalbital 50 MG / Caffeine 40 MG / Codeine Phosphate 30 MG Oral Capsule [Fioricet with Codeine] 2019-04 06:02: 00 Yes 1 cap, PO, Q4H, PRN Headache, Do not exceed 6 capsules in 24 hours, X 5 day, # 30 cap, 0 Refill(s) Huma Johnson Acetaminoph en 325 MG / Hydrocodone Bitartrate 5 MG Oral Tablet [[place] 5/325] 2019-04 06:00: 00 No Notes: (Same as: [place] 325/5) Do not exceed 4gm/day of acetaminop hen. Huma keshia Johnson Saline Flush 0.9% 2019-04 04:20: 00 No Notes: (Same as: BD Posiflush) Huma Johnson Sodium Chloride 0.9% (Bolus) IV 2019-04 04:20: 00 No 1,000 mL, 1000 ml/hr, Infuse Over: 1 hr, Route: IV, 1,000, Drug form: INJ, ONCE, Priority: STAT, Dosing Weight 51 kg, Start date: 03/05/20 22:20:00 [employer], Stop date: 03/05/20 22:20:00 [employer]ER, 0 Huma Johnson Zolpidem tartrate 10 MG Oral Tablet [Ambien] 2018-04 18:38: 00 Yes 10 mg = 1 tab, PO, Bedtime, 0 Refill(s) Huma Johnson gabapentin 300 MG Oral Capsule 12-05 21:05: 46 Yes 600 mg = 2 cap, PO, BID, # 120 cap, 3 Refill(s), Pharmacy: [facility] #[id number] Huma Johnson duloxetine 30 MG Enteric Coated Capsule [Cymbalta] 10-30 22:34: 00 Yes 30 mg = 1 cap, PO, Daily, # 30 cap, 2 Refill(s), Pharmacy: [facility] #[id number] Huma Johnson Trazodone Hydrochlori de 50 MG Oral Tablet 09-18 22:11: 03 Yes 50 mg = 1 tab, PO, Bedtime, # 90 tab, 0 Refill(s), Pharmacy: [facility] #[id number] Huma Johnson Diclofenac Sodium 0.01 MG/MG Topical Gel [Voltaren] 09-18 22:11: 00 Yes 2 gm = 1 appl, TOP, BID, PRN Pain Score 6-10 in foot, Apply to affected area, # 100 gm, 1 Refill(s), Pharmacy: [facility] #[id number] Huma Johnson gabapentin 300 MG Oral Capsule 09-18 22:11: 00 Yes 300 mg = 1 cap, PO, BID, # 60 cap, 2 Refill(s), Pharmacy: [facility] #[id number] Huma Johnson Depo-Senior [employer] a Contracepti ve 150 mg/mL intramuscul ar suspension 09-18 20:55: 00 Yes 150 mg = 1 mL, IM, q3mo, # 1 mL, 0 Refill(s) Huma Johnson metoprolol tartrate 25 mg oral tablet 06-13 22:28: 00 Yes 12.5 mg = 0.5 tab, PEG, BID, # 90 tab, 0 Refill(s) Huma Johnson Lidocaine 0.04 MG/MG Medicated Patch 06-13 21:29: 00 Yes 1 patch, TOP, Bedtime, Available as over the counter medication , # 90 patch, 0 Refill(s) Huma Johnson ocular lubricant 06-13 21:29: 00 Yes BOTH EYES, QID, 0 Refill(s) Huma Johnson tramadol hydrochlori de 50 MG Oral Tablet 06-13 21:29: 00 Yes 50 mg = 1 tab, PO, Q6H, PRN Pain Score 6-10, # 10 tab, 0 Refill(s) Huma Johnson Acetaminoph en 325 MG Oral Tablet 06-13 21:29: 00 Yes 100.4 F, 0 Refill(s) Huma Johnson metoprolol tartrate 25 mg oral tablet 06-13 21:29: 00 No 12.5 mg = 0.5 tab, PO, BID, # 90 tab, 0 Refill(s) Huma Johnson Trazodone Hydrochlori de 50 MG Oral Tablet 06-13 21:29: 00 Yes 50 mg = 1 tab, PO, Bedtime, # 90 tab, 0 Refill(s) Huma Johnson simethicone 80 mg oral tablet, chewable 06-13 21:29: 00 Yes 160 mg = 2 tab, PEG, TID, PRN Gas, Available as over the counter medication , X 10 day, # 50 tab, 0 Refill(s) Huma Johnson gabapentin 600 MG Oral Tablet 06-13 21:29: 00 Yes 600 mg = 1 tab, PEG, TID, # 270 tab, 0 Refill(s) Huma Johnson Bacitracin 0.5 UNT/MG Ophthalmic Ointment 06-13 21:29: 00 Yes 1 appl, LEFT EYE, BID, X 5 day, # 4 gm, 0 Refill(s) Huma Johnson FLUoxetine 20 mg oral capsule 06-13 21:29: 00 Yes 20 mg = 1 cap, PEG, Daily, # 90 cap, 0 Refill(s) Huma Johnson Menthol / Zinc Oxide 06-13 21:29: 00 Yes 1 applicatio n, TOP, Q12H, 0 Refill(s) Huma Johnson POLYETHYLEN E GLYCOL 3350 142 MG/ML Oral Solution [Miralax] 06-13 21:29: 00 Yes 17 gm, PEG, Daily, PRN Constipati on, Available as over the counter medication s, # 30 ea, 0 Refill(s) Huma Johnson Bacitracin 06-11 18:00: 00 No 0.25 inch, Route: LEFT EYE, BID, Drug form: OINT, Start date: 06/11/18 12:00:00 [employer], Duration: 3 day, Stop date: 06/14/18 8:30:00 [employer] Huma Johnson Lubricant Eye Drops 06-10 19:00: 00 No Notes: Same as: Refresh Celluvisc Non-Formul ben Huma Johnson Bacitracin 06-09 22:00: 00 No 1 appl, Route: TOP, Q8H, Drug form: OINT, Start date: 06/09/18 16:00:00 [employer]ER, Duration: 60 day, Stop date: 08/08/18 8:00:00 CDT Huma Johnson gabapentin 100 MG Oral Capsule 06-07 19:00: 00 No Notes: Same as Neurontin Huma Johnson gabapentin 100 MG Oral Capsule 06-03 19:00: 00 No Notes: (Same as: Neurontin) Huma Johnson Simethicone 05-30 23:54: 00 No Notes: (Same as: Mylicon) Huma Johnson Lubricant Eye Drops 05-29 19:00: 00 No 1 drp, Route: Each Affected Eye, QID, Drug form: SOLN, Start date: 05/29/18 13:00:00 [employer], Duration: 30 day, Stop date: 06/28/18 8:30:00 CDT Huma Johnson Guaifenesin 20 MG/ML Oral Solution 05-29 19:00: 00 No Notes: (Same as: Robitussin ) Huma Johnson Lanolin 0.157 MG/MG / Menthol 0.0044 MG/MG / Petrolatum 0.24 MG/MG / Zinc Oxide 0.206 MG/MG Topical Ointment [Calmosepti ne] 05-29 03:00: 00 No Notes: (Same as: Risamine) Huma Johnson metoprolol tartrate 05-28 03:00: 00 No Notes: (Same as: Lopressor) Huma Johnson Nystatin [id number] UNT/ML Topical Cream 05-28 03:00: 00 No Notes: (Same as:Mycosta tin Nilstat) for external use only. Huma Johnson Lovenox 05-28 02:00: 00 No Notes: (Same as: Lovenox) Huma Johnson Bisacodyl 05-28 01:48: 00 No Notes: (Same As: Dulcolax, Bisco-Lax) Huma Johnson Deion Yen 05-25 21:55: 00 No Notes: (Same As: Deion Yen) "Do Not Crush" Huma Johnson Bacitracin 0.5 UNT/MG Ophthalmic Ointment 05-24 23:00: 00 No 1 appl, Route: BOTH EYES, QID, Drug form: OINT, Start date: 05/24/18 17:00:00 M[employer] MA[employer] PLASTER, Duration: 14 day, Stop date: 06/07/18 13:00:00 MOLD MA[employer] PLASTER Mahnazyakov keshia Johnson Ciprofloxac in 0.003 MG/MG Ophthalmic Ointment 05-23 16:33: 00 No Notes: (Same As: Ciloxan) Huma Johnson Visine 05-23 14:30: 00 No Notes: Non-Formul ben Drug. (Same As: Visine, Eye-Sine) Huma Johnson Trazodone Hydrochlori de 50 MG Oral Tablet 05-23 03:00: 00 No Notes: (Same As: Desyrel) Huma Johnson Lidocaine Hydrochlori de 0.05 MG/MG Transdermal Patch [Lidoderm] 05-23 03:00: 00 No Notes: Apply only once for up to 12 hours in a 24-hour period (12 hours on and 12 hours off). (Same as: Lidoderm) "Remove old patch before applicatio n of new patch" Huma Johnson Trazodone Hydrochlori de 50 MG Oral Tablet 05-22 21:19: 00 No Notes: (Same As: Desyrel) Huma Johnson Nystatin [id number] UNT/ML Oral Suspension 05-22 14:45: 00 No Notes: (Same as:Mycosta tin) Shake well. Huma Johnson Hydroxyzine 05-21 17:05: 00 No Notes: (Same as: Atarax) Avoid alcohol. Huma Johnson Flurbiprofe n sodium 0.3 MG/ML Ophthalmic Solution 05-20 19:00: 00 No Notes: (Same as: Ocufen) Non-Formul ben WASTE: F/P - Black; E - Municipal Trash Bin For ophthalmic use. Huma Johnson Reglan 05-20 17:30: 00 No Notes: (Same as: Reglan) Take 30 min before meals Huma Johnson Restore Moisture Barrier topical ointment 05-20 03:00: 00 No 1 appl, Route: TOP, Dosing Weight 38.636, kg, BID, Start date: 05/19/18 21:00:00 [employer]ER, Duration: 30 day, Stop date: 06/18/18 8:30:00 [employer]ER Huma Johnson Prazosin 05-20 03:00: 00 No 1 mg, Route: PO, Bedtime, Dosing Weight 38.636, kg, Start date: 05/19/18 21:00:00 MOLD MAKER PLASTER, Duration: 30 day, Stop date: 06/17/18 21:00:00 MOLD MAKER P[employer]ER Mahnazyakov keshia Johnson Hytrin 05-20 03:00: 00 No Notes: (Same As: Hytrin) Mahnazyakov keshia Alex Simethicone 05-19 19:00: 00 No Notes: (Same as: Mylicon) Mahnazyakov keshia Alex Zofran 05-19 16:33: 00 No Notes: (Same as: Zofran) Huma Johnson ocular lubricant solution 05-19 16:00: 00 No Notes: (Same as: Refresh Plus) Huma Johnson Diclofenac Sodium 1 MG/ML Ophthalmic Solution [Voltaren] 05-19 14:30: 00 No Notes: For Ophthalmic Use. Non-Formul ben (Same as: Voltaren Ophthalmic ) Huma keshia Johnson ocular lubricant 05-19 03:00: 00 No Notes: Same as: Refresh Celluvisc Non-Formul ben Mahnazyakov keshia Johnson Nystatin 100 UNT/MG / Triamcinolo ne Acetonide 0.001 MG/MG Topical Ointment 05-19 03:00: 00 No 1 appl, Route: TOP, BID, Drug form: OINT, Start date: 05/18/18 21:00:00 MOLD MA[employer]ER P[employer]ER, Duration: 30 day, Stop date: 06/17/18 8:30:00 MOLD MAKER P[employer]ER Mahnazyakov keshia Johnson ocular lubricant solution 05-18 23:00: 00 No Notes: (Same as: Refresh Plus) Mahanzyakov keshia Johnson POLYETHYLEN E GLYCOL 3350 05-18 14:30: 00 No Notes: Dissolve in 8 oz of water or juice. (Same as: Miralax) Huma Johnson Fluoxetine 05-18 14:30: 00 No Notes: (Same as: Prozac, Sarafem) Huma Johnson heparin 05-18 06:00: 00 No Notes: porcine heparin Huma Johnson gabapentin 100 MG Oral Capsule 05-18 06:00: 00 No Notes: (Same as: Neurontin) Huma Johnson Zantac 15 mg/mL oral syrup 05-18 03:00: 00 No 150 mg, 10 mL, Route: PEG, Drug form: SYRP, BID, Dosing Weight 48.3, kg, Start date: 05/17/18 21:00:00 MOLD MA[employer]ER P[employer]ER, Duration: 30 day, Stop date: 06/16/18 8:30:00 MOLD MAKER PLASTER Huma Johnson famotidine 05-18 03:00: 00 No Notes: (Same as: Pepcid) Huma Johnson metoprolol tartrate 05-18 03:00: 00 No Notes: (Same as: Lopressor) Huma Johnson docusate sodium 150 mg/15 mL oral liquid 05-18 03:00: 00 No Notes: (Same as: Colace) Huma Johnson sennosides, FPC 8.6 MG Oral Tablet 05-18 03:00: 00 No Notes: (Same as: Senokot) Huma Johnson Tramadol 05-18 02:33: 00 No Notes: Not to exceed 400mg/day. (Same As: Ultram) Huma Johnson Melatonin 05-18 02:33: 00 No Notes: (Same as: Melatonin) Huma Johnson Ibuprofen 20 MG/ML Oral Suspension 05-18 02:33: 00 No Notes: (Same as: Motrin Children's , Advil Children's ) Take with food. Huma Johnson Acetaminoph en 05-18 02:31: 00 No Notes: Do not exceed 4 gm/day. (Same as: Tylenol) Huma Johnson Levetiracet am 05-18 02:31: 00 No Notes: Same as Keppra Mix with 100 mL NS, LR or D5W MEDICATION WASTE Product Size: 500 mg Product Wasted: ___ mg Huma Johnson Midazolam 05-18 02:31: 00 No Notes: (Same as:Versed) Huma Johnson Albuterol 0.833 MG/ML / Ipratropium [place] 0.167 MG/ML Inhalant Solution 05-18 02:31: 00 No Notes: (Same as: Prem) Huma Johnson Milk of Bhakti 05-18 02:31: 00 No Notes: (Same as: Milk of Bhakti, MOM) Huma Johnson Saline Flush 0.9% 05-18 02:31: 00 No Notes: (Same as: BD Posiflush) Huma Johnson docusate sodium 150 mg/15 mL oral liquid 05-17 23:32: 00 No 100 mg = 10 mL, GT, Q8H, 0 Refill(s) Huma Hilarioann FLUoxetine 20 mg/5 mL oral solution 05-17 23:32: 00 No 20 mg = 5 mL, PEG, Daily, 0 Refill(s) Huma Hilarioann gabapentin 100 MG Oral Capsule 05-17 23:32: 00 No 100 mg = 1 cap, NG, Q8H, 0 Refill(s) Huma Hilarioann heparin 05-17 23:32: 00 No 5,000 unit = 1 mL, SUB-Q, Q8H, 0 Refill(s) Huma Hilarioann Ibuprofen 20 MG/ML Oral Suspension 05-17 23:32: 00 No PEG, Q4H, PRN Pain Score 1-3, 0 Refill(s) Mahnazyakov schmitt Alex ketOROLAC 15 mg/mL injectable solution 05-17 23:32: 00 No 15 mg = 1 mL, IV, Q6H, PRN Pain Score 6-10, 0 Refill(s) Mahnazyakov keshia Johnson Melatonin 5 MG Sublingual Tablet 05-17 23:32: 00 No 5 mg = 1 tab, PO, Bedtime, PRN Sleep, 0 Refill(s) Mahnazyakov schmitt Alex metoclopram delmar 5 mg/mL injectable solution 05-17 23:32: 00 No 10 mg = 2 mL, IVP, Q8H, PRN Nausea & Vomiting | high residual/ nausea/ vomiting, 0 Refill(s) Mahnazyakov Hilarioann metoprolol tartrate 25 mg oral tablet 05-17 23:32: 00 No 12.5 mg = 0.5 tab, NG, Q8H, 0 Refill(s) Mahnazyakov keshia Alex ocular lubricant 05-17 23:32: 00 No 1 appl, BOTH EYES, Bedtime, 0 Refill(s) uHma Johnson POLYETHYLEN E GLYCOL 3350 05-17 23:32: 00 No GT, Daily, 0 Refill(s) Huma Johnson Zantac 15 mg/mL oral syrup 05-17 23:32: 00 No 150 mg = 10 mL, GT, BID, 0 Refill(s) Mahnazyakov keshia Johnson sennosides, FPC 8.6 MG Oral Tablet 05-17 23:32: 00 No 8.6 mg = 1 tab, GT, Q12H, 0 Refill(s) Huma Johnson potassium chloride 05-15 16:35: 00 No Notes: (Same as: Potassium Chloride) Huma Johnson potassium chloride 20 mEq oral tablet, extended release 05-15 16:31: 00 No Notes: (Same as: K-Dur 20) "Do Not Crush" Give with food and full glass of water For patients unable to swallow tablet, dissolve in one half glass of water. Allow about 2 minutes for the tablets to disintegra te. Stir before giving to prepare slurry and administer . Please exclude Patient s with feeding tube less than 14 Pashto (Dobhoff, J-tube etc) and pediatric and patients. Huma Johnson Flagyl 05-15 02:00: 00 No Notes: (Same as: Flagsameera) Take with food/ avoid alcohol Huma Johnson Ketorolac 05-14 21:38: 00 No 4 days. Huma Johnson Flagyl 05-14 21:00: 00 No 500 mg, Route: PEG, Drug form: TAB, ABXQ8H, Dosing Weight 48.3, kg, Start date: 05/14/18 15:00:00 MOLD MAKER PLASTER, Duration: 3 day, Stop date: 05/17/18 7:00:00 MOLD MAKER PLASTER, ABX Indication : Pneumonia Huma Johnson Zofran 05-13 18:00: 00 No Notes: (Same as: Zofran) MEDICATION WASTE Product Size: 4 mg Product Wasted: ___ mg Mahnazyakov keshia Johnson NS (Bolus) IV 05-13 16:43: 00 No 1,000 mL, 1,000 ml/hr, Infuse Over: 1 hr, Route: IV, 1,000, Drug form: INJ, ONCE, Priority: STAT, Dosing Weight 48.3 kg, Start date: 05/13/18 10:43:00 MOLD MAKER PLASTER, Stop date: 05/13/18 10:43:00 MOLD MAKER PLASTER Mahnazyakov keshia Johnson normal saline 0.9% IV 1,000 mL 05-13 16:43: 00 No 1,000 mL, Rate: 75 ml/hr, Infuse over: 13.3 hr, Route: IV, Dosing Weight 48.3 kg, Total Volume: 1,000, Start date: 05/13/18 10:43:00 MOLD MAKER PLASTER, Duration: 1 day, Stop date: 05/14/18 10:42:00 MOLD MAKER PLASTER, 1.47, m2 Huma Johnson Ibuprofen 400 MG Oral Tablet 05-13 15:19: 00 No Notes: (Same as: Motrin Children's , Advil Children's ) Take with food. Huma Johnson Reglan 05-12 22:00: 00 No Notes: (Same as: Reglan) Huma Johnson Robinul 05-12 15:12: 00 No Notes: (Same as: Sachi) Huma Johnson Reglan 05-12 15:12: 00 No Notes: (Same as: Reglan) Huma Johnson Zofran 05-12 06:19: 00 No Notes: (Same as: Zofran) MEDICATION WASTE Product Size: 4 mg Product Wasted: ___ mg Huma Johnson ocular lubricant 05-11 03:00: 00 No Notes: (Same as: Lacri-Lube , Puralube, Duratears Naturale, Artificial Tears, and Tears Again ) Huma Johnson Sodium Chloride 0.9% IV 05-10 22:00: 00 No 250 mL, Route: IVPB, Start date: 05/10/18 16:00:00 MOLD MAKER PLASTER, Duration: 30 day, Stop date: 06/09/18 15:59:00 MOLD MAKER PLASTER, PRN Line Flush Mahnazyakov Johnson Flagyl 05-10 17:16: 00 No Notes: (Same as: Flagyl) Avoid alcohol. Huma keshia Alex tramadol 50 mg oral tablet 05-10 08:00: 00 No Notes: Not to exceed 400mg/day. (Same As: Ultram) Huma Hilarioann Miralax 05-09 15:00: 00 No Notes: Dissolve in 8 oz of water or juice. (Same as: Miralax) Mahnazyakov keshia Alex sennosides, FPC 05-09 03:00: 00 No Notes: (Same as: Senokot) Mahnazyakov keshia Johnson Fluoxetine 05-08 23:00: 00 No Notes: (Same as: Prozac) Mahnazyakov keshia Johnson docusate sodium 150 mg/15 mL oral liquid 05-08 22:00: 00 No Notes: (Same as: Colace) Mahnazyakov keshia Alex Acetaminoph en 325 MG / Hydrocodone Bitartrate 5 MG Oral Tablet [[place] 5/325] 05-08 20:00: 00 No Notes: (Same as: [place] 325/5) Do not exceed 4gm/day of acetaminop hen. Mahnazyakov keshia Alex Bisacodyl 05-08 16:18: 00 No Notes: (Same As: Dulcolax, Bisco-Lax) Mahnazyakov keshia [facility] Zantac 15 mg/mL oral syrup 05-08 15:00: 00 No Notes: (Same as:Zantac) Take before or with meals Huma Johnson tramadol hydrochlori de 50 MG Oral Tablet 05-08 14:36: 00 No Notes: Not to exceed 400mg/day. (Same As: Ultram) Mahnazyakov keshia Johnson cefepime 05-07 18:00: 00 No Notes: (Same As: Maxipime) MEDICATION WASTE Product Size: 1000 mg Product Wasted: ___ mg Mahnazyakov keshia Johnson Fluconazole 05-07 17:07: 00 No Notes: (Same as: Diflucan) Huma Hilarioann Omnipaque 350 injectable solution 05-07 16:12: 00 No Notes: (same as:Omnipaq ue 350). WASTE: F/P - Black; E - Municipal Trash Bin Huma keshia Johnson potassium phosphate + Sodium Chloride 0.9% IV 250 mL 05-06 13:24: 00 No Notes: (Same as: K Phosphate. ) Do not infuse phosphorou s concurrent ly in the same line as TPN or IVF that contains calcium. For double lumen central lines, phosphorou s may be infused in a separate lumen from TPN. 1 mMol phoshate has 1.47 mEq potassium Infuse over 4 hours Huma Johnson vancomycin + Sodium Chloride 0.9% IV 250 mL 05-06 10:00: 00 No 2001 mg: infuse over 2.5 hours For adult patients only: Round to nearest 250 mg per Medical Staff approval Huma Johnson Fentanyl 05-06 04:42: 00 No Notes: (Same as: Sublimaze) Preservati ve free. Huma Johnson Saline Flush 0.9% 05-06 03:00: 00 No Notes: Same as: BD Posiflush Sterile Huma Johnson chlorhexidi ne gluconate 1.2 MG/ML Mouthwash 05-06 03:00: 00 No Notes: (Same As: Peridex) Huma Johnson vancomycin + Sodium Chloride 0.9% IV 250 mL 05-06 02:00: 00 No 2001 mg: infuse over 2.5 hours For adult patients only: Round to nearest 250 mg per Medical Staff approval MEDICATION WASTE Product Size: 1000 mg Product Wasted: ___ mg Huma keshia Johnson meropenem + Sodium Chloride 0.9% IV 100 mL 05-06 02:00: 00 No Notes: Same as Merrem MEDICATION WASTE Product Size: 500 mg Product Wasted: __0_ mg Mahnazyakov keshia Johnson lidocaine 1% preservativ e-free injectable solution 05-06 01:44: 00 No Notes: Preservati ve free. (Same as: Xylocaine MPF) Huma Johnson Etomidate 05-06 01:44: 00 No Notes: (Same as: Amidate). Per state nursing law etomidate can only be given by a nurse if patient is intubated or being intubated (unless the nurse is a SHOCK ABSORPTION FLOOR LAYER). Huma Johnson Rocuronium 05-06 01:44: 00 No Notes: (Same as: Michelle) Huma Johnson Calcium Chloride 0.0014 MEQ/ML / Potassium Chloride 0.004 MEQ/ML / Sodium Chloride 0.103 MEQ/ML / Sodium Lactate 0.028 MEQ/ML Injectable Solution 05-06 01:12: 00 No 1,000 mL, 1,000 ml/hr, Infuse Over: 1 hr, Route: IV, 1,000, Drug form: INJ, ONCE, Priority: STAT, Dosing Weight 48.3 kg, Start date: 05/05/18 19:12:00 MOLD MAKER PLASTER, Stop date: 05/05/18 19:12:00 MOLD MAKER PLASTER Huma Johnson meropenem 05-06 01:00: 00 No 500 mg, Route: IVPB, Drug form: PDR/INJ, ABXQ8H, Dosing Weight 48.3, kg, CrCL= 30 -49 ml/min, Extended infusion, infuse over 3 hours, Start date: 05/05/18 19:00:00 MOLD MAKER PLASTER, Duration: 10 day, Stop date: 05/15/18 11:00:00 MOLD MAKER PLASTER, ABX Indication : Pneumonia Huma Johnson Vancomycin 05-06 01:00: 00 No 1 ea, Route: MISC, ONCALL, Dosing Weight 48.3, kg, Start date: 05/05/18 19:00:00 MOLD MAKER PLASTER, Duration: 10 day, Stop date: 05/15/18 18:59:00 MOLD MAKER PLASTER, Pharmacy to dose, ABX Indication : Pneumonia Huma Johnson Vancomycin 05-06 00:07: 00 No 750 mg, Route: IVPB, Drug form: INJ, ONCE, Dosing Weight 48.3, kg, Start date: 05/05/18 18:07:00 MOLD MAKER PLASTER, Stop date: 05/05/18 18:07:00 MOLD MAKER PLASTER, Pediatric Dosing, ABX Indication : Pneumonia Huma Johnson Rocuronium 05-05 22:54: 00 No Notes: (Same as: Michelle) Huma Johnson Etomidate 05-05 22:54: 00 No Notes: (Same as: Amidate). Per state nursing law etomidate can only be given by a nurse if patient is intubated or being intubated (unless the nurse is a SHOCK ABSORPTION FLOOR LAYER). Huma [facility] Saline Flush 0.9% 05-05 22:45: 00 No Notes: Same as: BD Posiflush Sterile Huma Johnson Potassium Chloride 05-05 22:45: 00 No Notes: (Same as: KCL) Infuse no faster than 10 mEq/hr if given peripheral ly. Huma Johnson sodium phosphate 05-05 22:45: 00 No Notes: Infuse over 4 hour. Do not infuse phosphorou s concurrent ly in the same line as TPN or IVF that contains calcium. For double lumen central lines, phosphorou s may be infused in a separate lumen from TPN. Huma schmitt Alex potassium phosphate 05-05 22:45: 00 No Notes: (Same as: K Phosphate. ) Do not infuse phosphorou s concurrent ly in the same line as TPN or IVF that contains calcium. For double lumen central lines, phosphorou s may be infused in a separate lumen from TPN. 1 mMol phoshate has 1.47 mEq potassium Infuse over 4 hours Huma Johnson potassium phosphate-s odium phosphate 250 mg-280 mg-160 mg oral powder for reconstitut ion 05-05 22:45: 00 No Notes: (Same as: Phos-NaK) Each 1.5 gm pkt has 250mg phosphorou s. Mix w/2.5oz water and stir. Huma Johnson Magnesium Sulfate 05-05 22:45: 00 No Notes: WASTE: F/P - Sink; E - Municipal Trash Bin Huma Johnson Magnesium Oxide 05-05 22:45: 00 No Notes: (Same as: Mag-Ox 400) Magnesium oxide 187mu=182i g elemental magnesium Dose=____m g magnesium oxide (___mg elemental magnesium) Huma Johnson Calcium Gluconate 05-05 22:45: 00 No Notes: WASTE: F/P - Sink; E - Municipal Trash Bin Huma Johnson Calcium Carbonate 500 MG Chewable Tablet 05-05 22:45: 00 No Notes: (Same As: Tums) Calcium Carbonate 500 mg = 200 mg elemental calcium Dose = mg calcium carbonate ( mg elemental calcium) Huma Johnson chlorhexidi ne gluconate 1.2 MG/ML Mouthwash 05-05 22:45: 00 No Notes: (Same As: Peridex) Huma Johnson Doxycycline 05-04 03:00: 00 No Notes: (Same as: Vibramycin ) No milk/antac ids/iron. Huma Johnson Zofran 05-04 02:52: 00 No Notes: (Same as: Zofran) MEDICATION WASTE Product Size: 4 mg Product Wasted: ___ mg Huma Johnson Zofran 05-04 02:51: 00 No 4 mg, Route: IV, Q6H, Dosing Weight 48.3, kg, PRN as needed for nausea/vom iting, Start date: 05/03/18 20:51:00 MOLD MAKER PLASTER, Duration: 30 day, Stop date: 06/02/18 20:50:00 MOLD MAKER PLASTER Huma Johnson Morphine 05-04 01:20: 00 No Notes: (Same as:MORPhin e Sulfate) Huma Johnson Doxycycline 05-04 01:00: 00 No Notes: (Same as: Vibramycin ) Huma Johnson D5W 1/2NS 1,000 mL 05-03 22:00: 00 No 1,000 mL, Rate: 60 ml/hr, Infuse over: 16.7 hr, Route: IV, Dosing Weight 48.3 kg, Total Volume: 1,000, Start date: 05/03/18 16:00:00 MOLD MAKER PLASTER, Duration: 30 day, Stop date: 06/02/18 15:59:00 MOLD MAKER PLASTER, 1.47, m2 Huma Johnson Doxycycline 05-01 14:00: 00 No Notes: (Same as: Vibramycin ) No milk/antac ids/iron. Huma Johnson Ibuprofen 04-30 05:50: 00 No Notes: (Same as: Motrin Children's , Advil Children's ) Take with food. Huma Johnson metoprolol tartrate 04-29 22:00: 00 No Notes: (Same as: Lopressor) Huma Johnson 250 ML Albumin Human, FPC 50 MG/ML Injection [Albuked] 04-29 12:00: 00 No Notes: LOT#: ___Mfg:___ ___ (Same as: Albuminar) "blood product derivative " WASTE: F/P - Red; E -Red MEDICATION WASTE Product Size: 25 gm Product Wasted: ___ gm Huma Johnson Acetaminoph en 04-29 12:00: 00 No 650 mg, 20.3 mL, Route: NG, Drug form: LIQ, ONCE, Dosing Weight 48.3, kg, Start date: 04/29/18 6:00:00 MOLD MAKER PLASTER, Stop date: 04/29/18 6:00:00 MOLD MAKER PLASTER Huma Johnson Calcium Gluconate 04-29 12:00: 00 No Notes: WASTE: F/P - Sink; E - Municipal Trash Bin Huma Johnson Benadryl 04-29 12:00: 00 No Notes: (Same as: Benadryl) Huma Johnson NS 1,000 mL 04-29 06:41: 00 No 1,000 mL, Rate: 75 ml/hr, Infuse over: 13.3 hr, Route: IV, Dosing Weight 48.3 kg, Total Volume: 1,000, Start date: 04/29/18 0:41:00 MOLD MAKER PLASTER, Duration: 30 day, Stop date: 05/29/18 0:40:00 MOLD MAKER PLASTER, 1.47, m2 Huma Johnson PHOS-NaK 04-29 06:30: 00 No Notes: (Same as: Phos-NaK) Each 1.5 gm pkt has 250mg phosphorou s. Mix w/2.5oz water and stir. Huma Johnson Reglan 04-29 05:35: 00 No Notes: (Same as: Reglan) Huma Johnson metoprolol tartrate 04-28 15:00: 00 No Notes: (Same as: Lopressor) Huma Johnson Acetaminoph en 04-27 12:00: 00 No 650 mg, 20.3 mL, Route: NG, Drug form: LIQ, ONCE, Dosing Weight 48.3, kg, Start date: 04/27/18 6:00:00 MOLD MAKER PLASTER, Stop date: 04/27/18 6:00:00 MOLD MAKER PLASTER Huma Johnson Calcium Gluconate 04-27 12:00: 00 No Notes: WASTE: F/P - Sink; E - Municipal Trash Bin Huma Johnson Benadryl 04-27 12:00: 00 No Notes: (Same as: Benadryl) Huma Johnson 250 ML Albumin Human, FPC 50 MG/ML Injection [Albuked] 04-27 12:00: 00 No Notes: LOT#: ___Mfg:___ ___ (Same as: Albuminar) "blood product derivative " WASTE: F/P - Red; E -Red MEDICATION WASTE Product Size: 25 gm Product Wasted: ___ gm Huma Johnson Pepcid 04-26 23:00: 00 No Notes: (Same as: Pepcid) Huma Johnson PHOS-NaK 04-26 17:30: 00 No Notes: (Same as: Phos-NaK) Each 1.5 gm pkt has 250mg phosphorou s. Mix w/2.5oz water and stir. Huma Johnson Fentanyl 04-26 16:46: 00 No Notes: (Same as: Sublimaze) Preservat adam free. Huma Johnson Melatonin 04-26 16:39: 00 No Notes: (Same as: Melatonin) Huma Johnson metoprolol tartrate 04-25 16:00: 00 No Notes: (Same as: Lopressor) Huma Johnson 250 ML Albumin Human, FPC 50 MG/ML Injection [Albuked] 04-25 14:04: 00 No Notes: LOT#: ___Mfg:___ ___ (Same as: Albuminar) "blood product derivative " WASTE: F/P - Red; E -Red MEDICATION WASTE Product Size: 25 gm Product Wasted: ___ gm Huma Johnson Calcium Gluconate 04-25 12:00: 00 No Notes: WASTE: F/P - Sink; E - Municipal Trash Bin Huma Johnson Benadryl 04-25 12:00: 00 No Notes: (Same as: Benadryl) Huma Johnson Acetaminoph en 04-25 12:00: 00 No Notes: Do not exceed 4 gm/day. (Same as: Tylenol) Huma Johnson 250 ML Albumin Human, FPC 50 MG/ML Injection [Albuked] 04-25 12:00: 00 No Notes: LOT#: ___Mfg:___ ___ (Same as: Albuminar) "blood product derivative " WASTE: F/P - Red; E -Red MEDICATION WASTE Product Size: 25 gm Product Wasted: ___ gm Huma Johnson chlorhexidi ne gluconate 1.2 MG/ML Mouthwash 04-25 03:00: 00 No Notes: (Same As: Peridex) Huma schmitt Alex quetiapine 04-25 03:00: 00 No Notes: (Same as: SEROquel) Huma Hilarioann Isolyte S PH-7.4 (Bolus) IV 04-25 01:19: 00 No Notes: (Same as: Isolyte S PH 7.4) Huma keshia Alex Dexmedetomi dine 04-25 01:16: 00 No Notes: Use the following cdm for jatf1ian. Huma schmitt Alex Acetaminoph en 04-25 01:15: 00 No Notes: Infuse over 15 minutes Do not exceed 4gm/day of acetaminop hen MEDICATION WASTE Product Size: 1000 mg Product Wasted: ___ mg Huma Johnson Adenosine 04-25 01:13: 00 No Notes: Rapid IV PUSH over 1-2 sec; Flush line immediatel y after drug is given. Huma Johnson Fentanyl 04-25 01:11: 00 No Notes: (Same as: Sublimaze) Preservati ve free. Huma Johnson Versed 04-25 01:11: 00 No Notes: (Same as: Versed) MEDICATION WASTE Product Size: 2 mg Product Wasted: ___ mg Huma Johnson NS (Bolus) IV 04-25 00:10: 00 No 500 mL, 500 ml/hr, Infuse Over: 1 hr, Route: IV, 500, Drug form: INJ, ONCE, Priority: STAT, Dosing Weight 48.3 kg, Start date: 04/24/18 18:10:00 MOLD MAKER PLASTER, Stop date: 04/24/18 18:10:00 MOLD MAKER PLASTER Huma Johnson 250 ML Albumin Human, FPC 50 MG/ML Injection [Albuked] 04-24 20:21: 00 No Notes: LOT#: ___ Mfg: WASTE: F/P - Red; E -Red (Same as: Albuminar) "blood product derivative " Huma Johnson Metoprolol 04-24 19:29: 00 No Notes: (Same as: Lopressor) Push over 2 minutes Mahnazyakov Johnson ocular lubricant 04-24 18:00: 00 No 1 drp, Route: BOTH EYES, Q6H, Drug form: SOLN, Start date: 04/24/18 12:00:00 MOLD MAKER PLASTER, Duration: 30 day, Stop date: 05/24/18 6:00:00 MOLD MAKER PLASTER Mahnazyakov schmitt Alex Reglan 04-24 18:00: 00 No Notes: (Same as: Reglan) Mahnazyakov schmitt Alex Amidate 04-24 17:44: 00 No Notes: (Same as: Amidate). Per state nursing law etomidate can only be given by a nurse if patient is intubated or being intubated (unless the nurse is a SHOCK ABSORPTION FLOOR LAYER). Huma Johnson Flagyl 04-24 17:00: 00 No Notes: (Same as: Flagyl) Avoid alcohol. Huma Johnson NS (Bolus) IV 04-24 16:53: 00 No 500 mL, 500 ml/hr, Infuse Over: 1 hr, Route: IV, 500, Drug form: INJ, ONCE, Priority: STAT, Dosing Weight 48.3 kg, Start date: 04/24/18 10:53:00 MOLD MAKER PLASTER, Stop date: 04/24/18 10:53:00 MOLD MAKER PLASTER Huma Johnson Etomidate 04-24 16:22: 00 No Notes: (Same as: Amidate). Per state nursing law etomidate can only be given by a nurse if patient is intubated or being intubated (unless the nurse is a SHOCK ABSORPTION FLOOR LAYER). Huma Johnson Versed 04-24 16:22: 00 No Notes: (Same as: Versed) MEDICATION WASTE Product Size: 2 mg Product Wasted: ___ mg Huma Johnson chlorhexidi ne gluconate 1.2 MG/ML Mouthwash 04-24 16:18: 00 No Notes: (Same As: Peridex) Huma Johnson Fentanyl 04-24 16:18: 00 No Notes: (Same as: Sublimaze) Preservati ve free. Huma Johnson Benadryl 04-24 00:15: 00 No Notes: (Same as: Benadryl) Huma Johnson Bisacodyl 04-23 16:09: 00 No Notes: (Same As: Dulcolax, Bisco-Lax) Huma Johnson sodium citrate 04-23 15:00: 00 No Notes: (Same as: Sodium Citrate, anticoagul ant) . Huma Johnson 250 ML Albumin Human, FPC 50 MG/ML Injection [Albuked] 04-23 12:00: 00 No Notes: LOT#: ___Mfg:___ ___ (Same as: Albuminar) "blood product derivative " WASTE: F/P - Red; E -Red MEDICATION WASTE Product Size: 25 gm Product Wasted: _0__ gm Huma Johnson Calcium Gluconate 04-23 12:00: 00 No Notes: WASTE: F/P - Sink; E - Municipal Trash Bin Huma Johnson Benadryl 04-23 12:00: 00 No Notes: (Same as: Benadryl) Huma Johnson Tylenol 04-23 12:00: 00 No Notes: Do not exceed 4 gm/day. (Same as: Tylenol) Huma Johnson Melatonin 04-23 02:00: 00 No Notes: (Same as: Melatonin) Huma Johnson Erythromyci n 04-22 22:00: 00 No 25 kg, Start date: 04/22/18 16:00:00 MOLD MAKER PLASTER, Duration: 30 day, Stop date: 05/22/18 8:00:00 MOLD MAKER PLASTER, Pediatric Dosing; Prokinetic effect Huma Johnson Ceftriaxone 04-22 15:00: 00 No Notes: (Same As: Rocephin). Use with 100 mL NS and infuse over 30 min MEDICATION WASTE Product Size: 1000 mg Product Wasted: ___ mg Huma Johnson Fentanyl 04-21 22:38: 00 No Notes: Concentrat ion: 5 microgram / ml Huma Johnson gabapentin 100 MG Oral Capsule 04-21 22:00: 00 No Notes: (Same as: Neurontin) Huma Johnson heparin 04-21 22:00: 00 No Notes: porcine heparin Huma Johnson Reglan 04-21 18:00: 00 No Notes: (Same as: Reglan) Huma Johnson albumin human 5% intravenous solution 04-21 17:00: 00 No Notes: LOT#: ___Mfg:___ ___ (Same as: Albuminar) "blood product derivative " WASTE: F/P - Red; E -Red MEDICATION WASTE Product Size: 25 gm Product Wasted: ___ gm Huma Johnson sodium citrate 04-21 15:00: 00 No Notes: Same as Anticoagul ant Citrate Dextrose Soln FPC (ACD) Formula A Non formulary item Huma Johnson pantoprazol e 04-21 15:00: 00 No Notes: Tablet should not be chewed or crushed. (Same as: Protonix) Huma Johnson Docusate 04-21 15:00: 00 No Notes: (Same as: Colace) (Do Not Crush) Huma Johnson Lactulose 667 MG/ML Oral Solution 04-21 15:00: 00 No Notes: (Same as:Chronul ac) Huma Johnson Azithromyci n 04-21 15:00: 00 No Notes: (Same As: Zithromax IV) Huma Johnson 250 ML Albumin Human, FPC 50 MG/ML Injection [Albuked] 04-21 14:40: 00 No Route: MISC, ONCE, Dosing Weight 48.3, kg, Start date: 04/21/18 8:40:00 MOLD MAKER PLASTER, Stop date: 04/21/18 8:40:00 MOLD MAKER PLASTER Huma Johnson Calcium Gluconate 04-21 14:40: 00 No Notes: WASTE: F/P - Sink; E - Municipal Trash Bin Huma Johnson Benadryl 04-21 14:40: 00 No Notes: (Same as: Benadryl) Huma Johnson Tylenol 04-21 14:40: 00 No Notes: Do not exceed 4 gm/day. (Same as: Tylenol) Huma Johnson Zithromax 04-21 09:00: 00 No Notes: (Same As: Zithromax IV) Huma Johnson Isolyte S PH 7.4 1,000 mL 04-21 08:40: 00 No Notes: (Same as: Isolyte S PH 7.4) Huma Johnson Bisacodyl 04-21 08:17: 00 No Notes: (Same As: Dulcolax, Bisco-Lax) Memyakov Johnson ocular lubricant 04-21 06:00: 00 No 2 drp, Route: BOTH EYES, Q4H, Drug form: SOLN, Start date: 04/21/18 0:00:00 MOLD MAKER PLASTER, Duration: 30 day, Stop date: 05/20/18 20:00:00 MOLD MAKER PLASTER Huma Johnson propofol 10 mg/mL (Titrate.) IV 1,000 mg 04-21 05:10: 00 No Notes: If Diprivan - change bottle & tubing every 12 hr Per state nursing law propofol can only be given by a nurse if patient is intubated or being intubated (unless the nurse is a SH[employer]ER). Same as: Diprivan Huma Johnson Docusate 04-21 03:00: 00 No Notes: (Same as: Colace) (Do Not Crush) Huma Johnson Saline Flush 0.9% 04-21 03:00: 00 No Notes: Same as: BD Posiflush Sterile Huma Johnson chlorhexidi ne gluconate 1.2 MG/ML Mouthwash 04-21 03:00: 00 No Notes: (Same As: Peridex) Huma Johnson Nystatin 100 UNT/MG Topical Powder 04-21 02:39: 00 No Notes: (Same as:Mycosta tin, Nilstat) For external use only. Huma Johnson Acetaminoph en 04-21 02:39: 00 No 100.4 F, Start date: 04/20/18 20:39:00 MOLD MAKER PLASTER, Duration: 30 day, Stop date: 05/20/18 20:38:00 MOLD MAKER PLASTER Huma Johnson Ondansetron 04-21 02:39: 00 No Notes: (Same as: Zofran) MEDICATION WASTE Product Size: 4 mg Product Wasted: ___ mg Huma Johnson Bisacodyl 04-21 02:39: 00 No Notes: (Same As: Dulcolax, Bisco-Lax) Huma Johnson Albuterol 0.833 MG/ML / Ipratropium [place] 0.167 MG/ML Inhalant Solution 04-21 02:39: 00 No Notes: (Same as: Duoneb) Huma Johnson Saline Flush 0.9% 04-21 02:39: 00 No Notes: Same as: BD Posiflush Sterile Huma Johnson Fentanyl 04-21 02:39: 00 No Notes: Concentrat ion: 5 microgram / ml Huma Johnson Potassium Chloride 04-21 02:39: 00 No Notes: (Same as: KCL) Infuse no faster than 10 mEq/hr if given peripheral ly. Huma Johnson sodium phosphate 04-21 02:39: 00 No Notes: Infuse over 4 hour. Do not infuse phosphorou s concurrent ly in the same line as TPN or IVF that contains calcium. For double lumen central lines, phosphorou s may be infused in a separate lumen from TPN. Huma Johnson potassium phosphate 04-21 02:39: 00 No Notes: (Same as: K Phosphate. ) Do not infuse phosphorou s concurrent ly in the same line as TPN or IVF that contains calcium. For double lumen central lines, phosphorou s may be infused in a separate lumen from TPN. 1 mMol phoshate has 1.47 mEq potassium Infuse over 4 hours Huma Johnson potassium phosphate-s odium phosphate 250 mg-280 mg-160 mg oral powder for reconstitut ion 04-21 02:39: 00 No Notes: (Same as: Phos-NaK) Each 1.5 gm pkt has 250mg phosphorou s. Mix w/2.5oz water and stir. Huma Johnson Magnesium Sulfate 04-21 02:39: 00 No Notes: WASTE: F/P - Sink; E - Municipal Trash Bin Huma Johnson Magnesium Oxide 04-21 02:39: 00 No Notes: (Same as: Mag-Ox 400) Magnesium oxide 416iz=538m g elemental magnesium Dose=____m g magnesium oxide (___mg elemental magnesium) Huma Johnson Calcium Gluconate 04-21 02:39: 00 No Notes: WASTE: F/P - Sink; E - Municipal Trash Bin Huma Johnson Calcium Carbonate 500 MG Chewable Tablet 04-21 02:39: 00 No Notes: (Same As: Tums) Calcium Carbonate 500 mg = 200 mg elemental calcium Dose = mg calcium carbonate ( mg elemental calcium) Huma Johnson chlorhexidi ne gluconate 1.2 MG/ML Mouthwash 04-21 02:39: 00 No Notes: (Same As: Peridex) Huma Pickering n 04-20 22:41: 00 No Notes: (Same As: Zithromax IV) Huma Johnson Rocephin 04-20 22:38: 00 No 1 gm, Route: IVPB, Drug form: PDR/INJ, [id number], Dosing Weight 46.618, kg, Priority: NOW, Start date: 04/20/18 16:38:00 MOLD MAKER PLASTER, Duration: 7 day, Stop date: 04/26/18 16:38:00 MOLD MAKER PLASTER, ABX Indication : Pneumonia Huma Johnson Lactulose 667 MG/ML Oral Solution 04-20 22:34: 00 No 40 gm = 60 mL, PO, Daily, 0 Refill(s) Huma Johnson pantoprazol e 40 mg intravenous injection 04-20 22:34: 00 No 40 mg, IVP, Daily, 0 Refill(s) Huma Johnson enoxaparin 40 mg/0.4 mL subcutaneou s solution 04-20 22:34: 00 No 40 mg = 0.4 mL, SUB-Q, [id number], 0 Refill(s) Huma Johnson Lasix 04-20 16:02: 00 No Notes: (Same as: Lasix) Huma Johnson Lactulose 667 MG/ML Oral Solution 04-19 20:37: 00 No Notes: (Same as:Nahumul ac) Huma Johnson Lactulose 667 MG/ML Oral Solution 04-18 22:30: 00 No Notes: (Same as:Nahumul ac) Huma Johnson Immunue globulin 5% 10 gm SOLN 04-17 21:30: 00 No Immunue globulin 5% 10 gm SOLN, 20 gm, Drug form: MISC, Route: IV, Q24H, 04/17/18 15:30:00 MOLD MAKER PLASTER, Duration: 2 day, Stop date: 04/18/18 15:30:00 MOLD MAKER PLASTER Huma Johnson pantoprazol e 04-17 15:00: 00 No Notes: For IV push reconstitu te with 10 ml 0.9% sodium chloride and push over 2 minutes. (Same as: Protonix) Huma Johnson chlorhexidi ne gluconate 1.2 MG/ML Mouthwash 04-17 03:00: 00 No Notes: (Same As: Peridex) Huma Johnson normal saline 0.9% IV 1,000 mL 04-17 00:32: 00 No 1,000 mL, Rate: 100 ml/hr, Infuse over: 10 hr, Route: IV, Dosing Weight 46.618 kg, Total Volume: 1,000, Start date: 04/16/18 18:32:00 MOLD MAKER PLASTER, Duration: 30 day, Stop date: 05/16/18 18:31:00 MOLD MAKER PLASTER, 1.45, m2 Huma Johnson Fentanyl 04-17 00:15: 00 No Notes: (Same as: Sublimaze) Preservati ve free. Huma Johnson Fentanyl 04-17 00:03: 00 No 1,000 microgram, 20 mL, Rate: Titrate, Start Dose: 50 microgram/ hr, Titration: 25 microgram/ hour every 15 minutes, Goal(s): RASS -2-0, Max Dose: 300 microgram/ hr, Route: IV, Dosing Weight 46.618 kg, Total Volume: 20, Start date: 04/16/18 18:03:00 MOLD MAKER PLASTER,... Huma Johnson Rocuronium 04-17 00:03: 00 No 45 mg, Route: IV, ONCE, Dosing Weight 46.618, kg, Start date: 04/16/18 18:03:00 MOLD MAKER PLASTER, Stop date: 04/16/18 18:03:00 MOLD MAKER PLASTER Huma Johnson Midazolam 04-17 00:03: 00 No Notes: (Same as: Versed) Huma Johnson ocular lubricant 04-17 00:00: 00 No Notes: (Same as: Lacri-Lube , Puralube, Duratears Naturale, Artificial Tears, and Tears Again ) Huma Johnson chlorhexidi ne gluconate 1.2 MG/ML Mouthwash 04-16 23:26: 00 No Notes: (Same As: Peridex) Huma Johnson Reglan 04-16 17:30: 00 No Notes: (Same as: Reglan) Take 30 min before meals Mahnazyakov Johnson remove patch 04-16 17:00: 00 No Notes: Remove patch 12 hours after applicatio n each day. Huma Hilarioann Lidocaine 0.05 MG/MG Transdermal Patch 04-16 05:00: 00 No Notes: Apply only once for up to 12 hours in a 24-hour period (12 hours on and 12 hours off). (Same as: Lidoderm) "Remove old patch before applicatio n of new patch" Huma Hilarioann Lidocaine 0.05 MG/MG Transdermal Patch 04-16 04:11: 00 No 1 patch, Route: TOP, ONCE, Drug form: FILM, Start date: 04/15/18 22:11:00 MOLD MAKER PLASTER, Stop date: 04/15/18 22:11:00 MOLD MAKER PLASTER Huma schmitt Alex Immunoglobu antwan G, Human 100 MG/ML Injection 2017-04 21:30: 00 No Notes: (Same as: Flybogamma ) For adults: use IBW of XX used for XX mg/kg per protocol For adult patients: Begin at 1 mg/kg/min. If tolerating , may double rate after 30 minutes and continue to increase every 15 minutes to a maximum of 4 mg/kg/min. Reduce the infusion by half if adverse reactions occur and notify prescriber . If symptoms continue after 15 minutes, stop infusion and notify prescriber . If symptoms subside promptly, the infusion may be resumed at the previously tolerated rate. Most reactions occur in the first 30 minutes of infusion. Monitor patient closely for vital sign changes or flushing. Lot Mfg: "blood product derivative " Huma Johnson Ativan 2017-04 18:19: 00 No Notes: (Same as: Ativan) Huma Johnson Acetaminoph en 325 MG / Hydrocodone Bitartrate 5 MG Oral Tablet [[place] 5/325] 2017-04 18:19: 00 No Notes: (Same as: [place] 325/5) Do not exceed 4gm/day of acetaminop hen. Huma Johnson Saline Flush 0.9% 2017-04 15:00: 00 No Notes: (Same as: BD Posiflush) Huma Johnson Docusate 2017-04 15:00: 00 No Notes: (Same as: Colace) Huma Johnson gabapentin 100 MG Oral Capsule 2017-04 14:00: 00 No Notes: (Same as: Neurontin) Huma Johnson Protonix 2017-04 13:30: 00 No 40 mg, Route: PO, Drug form: ECTAB, Before Breakfast, Dosing Weight 46.619, kg, Start date: 04/14/18 7:30:00 MOLD MAKER PLASTER, Duration: 30 day, Stop date: 05/13/18 7:30:00 MOLD MAKER PLASTER Huma Hilarioann Dextrose 50% Syringe 2017-04 10:00: 00 No 12.5 gm, 25 mL, Route: IVP, Drug Form: INJ, Dosing Weight 46.618, kg, PRN, PRN Blood Glucose Results, Start date: 04/14/18 4:00:00 MOLD MAKER PLASTER, Duration: 30 day, Stop date: 05/14/18 3:59:00 MOLD MAKER PLASTER Huma Hilarioann Glucagon 2017-04 10:00: 00 No 1 mg, Route: IM, Drug form: PDR/INJ, PRN, Dosing Weight 46.618, kg, PRN Blood Glucose Results, Start date: 04/14/18 4:00:00 MOLD MAKER PLASTER, Duration: 30 day, Stop date: 05/14/18 3:59:00 MOLD MAKER PLASTER Mahnazyakov Hilarioann Insulin Lispro 2017-04 10:00: 00 No Notes: (Same as: Humalog ) Roll in palms of hands gently; Do not shake `vigorousl y. "Single Patient Use Only " WASTE: F/P - Black; E - Municipal Trash Bin Stable for 28 days at room temperatur e. Expires in days from ____Date Huma Johnson Calcium Gluconate 2017-04 09:57: 00 No Notes: WASTE: F/P - Sink; E - Municipal Trash Bin Huma Johnson Calcium Carbonate 500 MG Chewable Tablet 2017-04 09:57: 00 No Notes: (Same As: Tums) Calcium Carbonate 500 mg = 200 mg elemental calcium Dose = mg calcium carbonate ( mg elemental calcium) Huma Johnson potassium phosphate-s odium phosphate 250 mg-280 mg-160 mg oral powder for reconstitut ion 2017-04 09:57: 00 No Notes: (Same as: Phos-NaK) Each 1.5 gm pkt has 250mg phosphorou s. Mix w/2.5oz water and stir. Huma Johnson Magnesium Sulfate 2017-04 09:57: 00 No Notes: WASTE: F/P - Sink; E - Municipal Trash Bin Huma Johnson potassium phosphate 2017-04 09:57: 00 No Notes: (Same as: K Phosphate. ) Do not infuse phosphorou s concurrent ly in the same line as TPN or IVF that contains calcium. For double lumen central lines, phosphorou s may be infused in a separate lumen from TPN. 1 mMol phoshate has 1.47 mEq potassium Infuse over 4 hours Huma Johnson sodium phosphate 2017-04 09:57: 00 No Notes: Infuse over 4 hour. Do not infuse phosphorou s concurrent ly in the same line as TPN or IVF that contains calcium. For double lumen central lines, phosphorou s may be infused in a separate lumen from TPN. Huma Johnson Potassium Chloride 2017-04 09:57: 00 No Notes: (Same as: Potassium Chloride) Huma Johnson Magnesium Oxide 2017-04 09:57: 00 No Notes: (Same as: Mag-Ox 400) Magnesium oxide 102ak=296d g elemental magnesium Dose=____m g magnesium oxide (___mg elemental magnesium) Huma schmitt Alex Saline Flush 0.9% 2017-04 09:57: 00 No Notes: (Same as: BD Posiflush) Huma schmitt Alex Nystatin 100 UNT/MG Topical Powder 2017-04 09:57: 00 No Notes: (Same as:Mycosta tin, Nilstat) For external use only. Huma Johnson Depo-estrad iol 2017-04 09:44: 00 No 5 mg, IM, q4wk, 0 Refill(s) Huma Johnson Lovenox 2017-04 09:00: 00 No Notes: (Same as: Lovenox) Huma Johnson NS 1,000 mL 2017-04 08:04: 00 No 1,000 mL, Rate: 100 ml/hr, Infuse over: 10 hr, Route: IV, Dosing Weight 46.619 kg, Total Volume: 1,000, Start date: 04/14/18 2:04:00 MOLD MAKER PLASTER, Duration: 30 day, Stop date: 05/14/18 2:03:00 MOLD MAKER PLASTER, 1.45, m2 Huma Hilarioann Acetaminoph en 2017-04 08:03: 00 No Notes: Do not exceed 4 gm/day. (Same as: Tylenol) Huma Johnson Dextrose 50% Syringe 2017-04 08:03: 00 No 12.5 gm, 25 mL, Route: IVP, Drug Form: INJ, Dosing Weight 46.619, kg, PRN, PRN Blood Glucose Results, Start date: 04/14/18 2:03:00 MOLD MAKER PLASTER, Duration: 30 day, Stop date: 05/14/18 2:02:00 MOLD MAKER PLASTER Huma schmitt Alex Ondansetron 2017-04 08:03: 00 No Notes: (Same as: Hollie) MEDICATION WASTE Product Size: 4 mg Product Wasted: ___ mg Huma Johnson Glucagon 2017-04 08:03: 00 No 1 mg, Route: IM, Drug form: PDR/INJ, PRN, Dosing Weight 46.619, kg, PRN Blood Glucose Results, Start date: 04/14/18 2:03:00 MOLD MAKER PLASTER, Duration: 30 day, Stop date: 05/14/18 2:02:00 MOLD MAKER PLASTER Huma Johnson NS (Bolus) IV 2017-04 08:02: 00 No 1,000 mL, 1,000 ml/hr, Infuse Over: 1 hr, Route: IV, 1,000, Drug form: INJ, ONCE, Priority: STAT, Dosing Weight 46.619 kg, Start date: 04/14/18 2:02:00 MOLD MAKER PLASTER, Stop date: 04/14/18 2:02:00 MOLD MAKER PLASTER Huma Johnson Bactrim DS 800 mg-160 mg tablet Take 1 tablet every 12 hours by oral route for 5 days. Bactrim DS 800 mg-160 mg tablet Take 1 tablet every 12 hours by oral route for 5 days. No 1 Q12H Bactrim DS 800 mg-160 mg tablet Take 1 tablet every 12 hours [facility] famotidine 20 mg tablet famotidine 20 mg tablet No famotidine 20 mg tablet [facility] meloxicam 7.5 mg tablet meloxicam 7.5 mg tablet No meloxicam 7.5 mg tablet [facility] pregabalin 150 mg capsule TAKE 1 CAPSULE BY MOUTH THREE TIMES DAILY pregabalin 150 mg capsule TAKE 1 CAPSULE BY MOUTH THREE TIMES DAILY No pregabalin 150 mg capsule TAKE 1 CAPSULE BY MOUTH THREE TIMES DAILY [facility] venlafaxine ER 75 mg capsule,ext ended release 24 hr venlafaxine ER 75 mg capsule,ext ended release 24 hr No venlafaxin e ER 75 mg capsule,ex tended release 24 hr [facility] zolpidem ER 12.5 mg tablet,exte nded release,mul tiphase TAKE 1 TABLET BY MOUTH EVERY NIGHT FOR INSOMNIA zolpidem ER 12.5 mg tablet,exte nded release,mul tiphase TAKE 1 TABLET BY MOUTH EVERY NIGHT FOR INSOMNIA No zolpidem ER 12.5 mg tablet,ext ended release,mu ltiphase TAKE 1 TABLET BY MOUTH EVERY NIGHT FOR INSOMNIA [facility] famotidine 20 mg tablet famotidine 20 mg tablet No famotidine 20 mg tablet [facility] hydroxychlo roquine 200 mg tablet TAKE 1 TABLET BY MOUTH DAILY hydroxychlo roquine 200 mg tablet TAKE 1 TABLET BY MOUTH DAILY No hydroxychl oroquine 200 mg tablet TAKE 1 TABLET BY MOUTH DAILY [facility] Macrobid 100 mg capsule Take 1 capsule every 12 hours by oral route for 5 days. Macrobid 100 mg capsule Take 1 capsule every 12 hours by oral route for 5 days. No 1capsul e(s) Q12H Macrobid 100 mg capsule Take 1 capsule every 12 hours by oral route for 5 [facility]. [facility] meloxicam 7.5 mg tablet meloxicam 7.5 mg tablet No meloxicam 7.5 mg tablet [facility] pregabalin 150 mg capsule TAKE 1 CAPSULE BY MOUTH THREE TIMES DAILY pregabalin 150 mg capsule TAKE 1 CAPSULE BY MOUTH THREE TIMES DAILY No pregabalin 150 mg capsule TAKE 1 CAPSULE BY MOUTH THREE TIMES DAILY [facility] Pyridium 200 mg tablet Take 1 tablet 3 times a day by oral route after meals for 2 days. Pyridium 200 mg tablet Take 1 tablet 3 times a day by oral route after meals for 2 days. No 1 TID Pyridium 200 mg tablet Take 1 tablet 3 times a day by oral route after meals for 2 days. [facility] venlafaxine ER 75 mg capsule,ext ended release 24 hr venlafaxine ER 75 mg capsule,ext ended release 24 hr No venlafaxin e ER 75 mg capsule,ex tended release 24 hr [facility] zolpidem ER 12.5 mg tablet,exte nded release,mul tiphase TAKE 1 TABLET BY MOUTH EVERY NIGHT FOR INSOMNIA zolpidem ER 12.5 mg tablet,exte nded release,mul tiphase TAKE 1 TABLET BY MOUTH EVERY NIGHT FOR INSOMNIA No zolpidem ER 12.5 mg tablet,ext ended release,mu ltiphase TAKE 1 TABLET BY MOUTH EVERY NIGHT FOR INSOMNIA [facility] Diflucan 150 mg tablet Take 1 tablet every other day by oral route for 6 days. Diflucan 150 mg tablet Take 1 tablet every other day by oral route for 6 days. No 1 Q2D Diflucan 150 mg tablet Take 1 tablet every other day by oral route for 6 days. [facility] estradiol 2 mg tablet TAKE 1 TABLET BY MOUTH THREE TIMES DAILY estradiol 2 mg tablet TAKE 1 TABLET BY MOUTH THREE TIMES DAILY No estradiol 2 mg tablet TAKE 1 TABLET BY MOUTH THREE TIMES DAILY [facility] famotidine 20 mg tablet TAKE 1 TABLET BY MOUTH EVERY NIGHT AT BEDTIME famotidine 20 mg tablet TAKE 1 TABLET BY MOUTH EVERY NIGHT AT BEDTIME No famotidine 20 mg tablet TAKE 1 TABLET BY MOUTH EVERY NIGHT AT BEDTIME [facility] Macrobid 100 mg capsule Take 1 capsule every 12 hours by oral route for 7 days. Macrobid 100 mg capsule Take 1 capsule every 12 hours by oral route for 7 days. No 1capsul e(s) Q12H Macrobid 100 mg capsule Take 1 capsule every 12 hours by oral route for 7 days. [facility] meloxicam 7.5 mg tablet meloxicam 7.5 mg tablet No meloxicam 7.5 mg tablet [facility] pregabalin 150 mg capsule TAKE 1 CAPSULE BY MOUTH TWICE DAILY NEEDED pregabalin 150 mg capsule TAKE 1 CAPSULE BY MOUTH TWICE DAILY NEEDED No pregabalin 150 mg capsule TAKE 1 CAPSULE BY MOUTH TWICE DAILY NEEDED [facility] Program terconazole 0.4 % vaginal cream Insert 1 applicatorf ul every day by vaginal route for 7 days. terconazole 0.4 % vaginal cream Insert 1 applicatorf ul every day by vaginal route for 7 days. No 1applic ator(s) ful Q1D terconazol e 0.4 % vaginal cream Insert 1 applicator ful every day by vaginal route for 7 days. [facility] tramadol 50 mg tablet TAKE 1-2 TABLETS BY MOUTH EVERY 6 HOURS NEEDED FOR ACUTE PAIN tramadol 50 mg tablet TAKE 1-2 TABLETS BY MOUTH EVERY 6 HOURS NEEDED FOR ACUTE PAIN No tramadol 50 mg tablet TAKE 1-2 TABLETS BY MOUTH EVERY 6 HOURS NEEDED FOR ACUTE PAIN [facility] venlafaxine ER 37.5 mg capsule,ext ended release 24 hr TAKE 1 CAPSULE BY MOUTH DAILY venlafaxine ER 37.5 mg capsule,ext ended release 24 hr TAKE 1 CAPSULE BY MOUTH DAILY No venlafaxin e ER 37.5 mg capsule,ex tended release 24 hr TAKE 1 CAPSULE BY MOUTH DAILY [facility] Program zolpidem ER 12.5 mg tablet,exte nded release,mul tiphase zolpidem ER 12.5 mg tablet,exte nded release,mul tiphase No zolpidem ER 12.5 mg tablet,ext ended release,mu ltiphase [facility] Diflucan 150 mg tablet Take 1 tablet every other day by oral route for 6 days. Diflucan 150 mg tablet Take 1 tablet every other day by oral route for 6 days. No 1 Q2D Diflucan 150 mg tablet Take 1 tablet every other day by oral route for 6 days. [facility] Macrobid 100 mg capsule Take 1 capsule every 12 hours by oral route for 7 days. Macrobid 100 mg capsule Take 1 capsule every 12 hours by oral route for 7 days. No 1capsul e(s) Q12H Macrobid 100 mg capsule Take 1 capsule every 12 hours by oral route for 7 days. [facility] pregabalin 150 mg capsule TAKE 1 CAPSULE BY MOUTH THREE TIMES DAILY pregabalin 150 mg capsule TAKE 1 CAPSULE BY MOUTH THREE TIMES DAILY No pregabalin 150 mg capsule TAKE 1 CAPSULE BY MOUTH THREE TIMES DAILY [facility] Pyridium 200 mg tablet Take 1 tablet 3 times a day by oral route after meals for 2 days. Pyridium 200 mg tablet Take 1 tablet 3 times a day by oral route after meals for 2 days. No 1 TID Pyridium 200 mg tablet Take 1 tablet 3 times a day by oral route after meals for 2 days. [facility] zolpidem ER 12.5 mg tablet,exte nded release,mul tiphase TAKE 1 TABLET BY MOUTH EVERY NIGHT FOR INSOMNIA zolpidem ER 12.5 mg tablet,exte nded release,mul tiphase TAKE 1 TABLET BY MOUTH EVERY NIGHT FOR INSOMNIA No zolpidem ER 12.5 mg tablet,ext ended release,mu ltiphase TAKE 1 TABLET BY MOUTH EVERY NIGHT FOR INSOMNIA [facility] pregabalin 150 mg capsule TAKE 1 CAPSULE BY MOUTH THREE TIMES DAILY pregabalin 150 mg capsule TAKE 1 CAPSULE BY MOUTH THREE TIMES DAILY No pregabalin 150 mg capsule TAKE 1 CAPSULE BY MOUTH THREE TIMES DAILY [facility] zolpidem ER 12.5 mg tablet,exte nded release,mul tiphase TAKE 1 TABLET BY MOUTH EVERY NIGHT FOR INSOMNIA zolpidem ER 12.5 mg tablet,exte nded release,mul tiphase TAKE 1 TABLET BY MOUTH EVERY NIGHT FOR INSOMNIA No zolpidem ER 12.5 mg tablet,ext ended release,mu ltiphase TAKE 1 TABLET BY MOUTH EVERY NIGHT FOR INSOMNIA [facility] albuterol sulfate HFA 90 mcg/actuati on aerosol inhaler INHALE 1 TO 2 PUFFS BY MOUTH EVERY 4 TO 6 HOURS NEEDED FOR DIFFICULTY BREATHING albuterol sulfate HFA 90 mcg/actuati on aerosol inhaler INHALE 1 TO 2 PUFFS BY MOUTH EVERY 4 TO 6 HOURS NEEDED FOR DIFFICULTY BREATHING No albuterol sulfate HFA 90 mcg/actuat ion aerosol inhaler INHALE 1 TO 2 PUFFS BY MOUTH EVERY 4 TO 6 HOURS NEEDED FOR DIFFICULTY BREATHING [facility] medroxyprog esterone 10 mg tablet TAKE 2 TABLETS BY MOUTH EVERY DAY FOR 21 DAYS medroxyprog esterone 10 mg tablet TAKE 2 TABLETS BY MOUTH EVERY DAY FOR 21 DAYS No medroxypro gesterone 10 mg tablet TAKE 2 TABLETS BY MOUTH EVERY DAY FOR 21 DAYS [facility] medroxyprog esterone 5 mg tablet TAKE 1 TABLET BY MOUTH EVERY DAY medroxyprog esterone 5 mg tablet TAKE 1 TABLET BY MOUTH EVERY DAY No medroxypro gesterone 5 mg tablet TAKE 1 TABLET BY MOUTH EVERY DAY [facility] nitrofurant oin monohydrate /macrocryst als 100 mg capsule TAKE 1 CAPSULE BY MOUTH TWICE DAILY FOR 5 DAYS nitrofurant oin monohydrate /macrocryst als 100 mg capsule TAKE 1 CAPSULE BY MOUTH TWICE DAILY FOR 5 DAYS No nitrofuran toin monohydrat e/macrocry stals 100 mg capsule TAKE 1 CAPSULE BY MOUTH TWICE DAILY FOR 5 DAYS [facility] Paxlovid 300 mg (150 mg x 2)-100 mg tablets in a dose pack (EUA) TK 2 NIRMATRELVI R TS AND 1 RITONAVIR T TOGETHER PO BID FOR 5 DAYS BID FOR 5 DAYS Paxlovid 300 mg (150 mg x 2)-100 mg tablets in a dose pack (EUA) TK 2 NIRMATRELVI R TS AND 1 RITONAVIR T TOGETHER PO BID FOR 5 DAYS BID FOR 5 DAYS No Paxlovid 300 mg (150 mg x 2)-100 mg tablets in a dose pack (EUA) TK 2 NIRMATRELV IR TS AND 1 RITONAVIR T TOGETHER PO BID FOR 5 DAYS BID FOR 5 DAYS [facility] prednisone 20 mg tablet TAKE 3 TABLETS BY MOUTH DAILY FOR 5 DAYS prednisone 20 mg tablet TAKE 3 TABLETS BY MOUTH DAILY FOR 5 DAYS No prednisone 20 mg tablet TAKE 3 TABLETS BY MOUTH DAILY FOR 5 DAYS [facility] pregabalin 150 mg capsule TAKE 1 CAPSULE BY MOUTH TWICE DAILY NEEDED pregabalin 150 mg capsule TAKE 1 CAPSULE BY MOUTH TWICE DAILY NEEDED No pregabalin 150 mg capsule TAKE 1 CAPSULE BY MOUTH TWICE DAILY NEEDED [facility] venlafaxine ER 37.5 mg capsule,ext ended release 24 hr TAKE 1 CAPSULE BY MOUTH DAILY venlafaxine ER 37.5 mg capsule,ext ended release 24 hr TAKE 1 CAPSULE BY MOUTH DAILY No venlafaxin e ER 37.5 mg capsule,ex tended release 24 hr TAKE 1 CAPSULE BY MOUTH DAILY [facility] zolpidem ER 12.5 mg tablet,exte nded release,mul tiphase zolpidem ER 12.5 mg tablet,exte nded release,mul tiphase No zolpidem ER 12.5 mg tablet,ext ended release,mu ltiphase [facility] albuterol sulfate HFA 90 mcg/actuati on aerosol inhaler INHALE 1 TO 2 PUFFS BY MOUTH EVERY 4 TO 6 HOURS NEEDED FOR DIFFICULTY BREATHING albuterol sulfate HFA 90 mcg/actuati on aerosol inhaler INHALE 1 TO 2 PUFFS BY MOUTH EVERY 4 TO 6 HOURS NEEDED FOR DIFFICULTY BREATHING No albuterol sulfate HFA 90 mcg/actuat ion aerosol inhaler INHALE 1 TO 2 PUFFS BY MOUTH EVERY 4 TO 6 HOURS NEEDED FOR DIFFICULTY BREATHING [facility] baclofen 10 mg tablet TAKE 1 TABLET BY MOUTH THREE TIMES DAILY baclofen 10 mg tablet TAKE 1 TABLET BY MOUTH THREE TIMES DAILY No baclofen 10 mg tablet TAKE 1 TABLET BY MOUTH THREE TIMES DAILY [facility] estradiol 2 mg tablet TAKE 1 TABLET BY MOUTH THREE TIMES DAILY estradiol 2 mg tablet TAKE 1 TABLET BY MOUTH THREE TIMES DAILY No estradiol 2 mg tablet TAKE 1 TABLET BY MOUTH THREE TIMES DAILY [facility] famotidine 20 mg tablet TAKE 1 TABLET BY MOUTH EVERY NIGHT AT BEDTIME famotidine 20 mg tablet TAKE 1 TABLET BY MOUTH EVERY NIGHT AT BEDTIME No famotidine 20 mg tablet TAKE 1 TABLET BY MOUTH EVERY NIGHT AT BEDTIME [facility] ibuprofen 800 mg tablet Take 1 tablet every 8 hours by oral route as needed. ibuprofen 800 mg tablet Take 1 tablet every 8 hours by oral route as needed. No 1 Q8H ibuprofen 800 mg tablet Take 1 tablet every 8 hours by oral route as needed. [facility] Lidocaine Viscous 2 % mucosal solution SWISH AND SPIT 5 MILLILITERS EVERY 8 HOURS NEEDED FOR PAIN FOR 5 DAYS Lidocaine Viscous 2 % mucosal solution SWISH AND SPIT 5 MILLILITERS EVERY 8 HOURS NEEDED FOR PAIN FOR 5 DAYS No Lidocaine Viscous 2 % mucosal solution SWISH AND SPIT 5 MILLILITER S EVERY 8 HOURS NEEDED FOR PAIN FOR 5 DAYS [facility] medroxyprog esterone 10 mg tablet TAKE 1 TABLET BY MOUTH DAILY FOR 7 DAYS. START THE LAST 7 DAYS OF ESTRACE medroxyprog esterone 10 mg tablet TAKE 1 TABLET BY MOUTH DAILY FOR 7 DAYS. START THE LAST 7 DAYS OF ESTRACE No medroxypro gesterone 10 mg tablet TAKE 1 TABLET BY MOUTH DAILY FOR 7 DAYS. START THE LAST 7 DAYS OF ESTRACE [facility] medroxyprog esterone 5 mg tablet TAKE 1 TABLET BY MOUTH EVERY DAY medroxyprog esterone 5 mg tablet TAKE 1 TABLET BY MOUTH EVERY DAY No medroxypro gesterone 5 mg tablet TAKE 1 TABLET BY MOUTH EVERY DAY [facility] meloxicam 7.5 mg tablet meloxicam 7.5 mg tablet No meloxicam 7.5 mg tablet [facility] norethindro ne acetate 1 mg-ethinyl estradiol 20 mcg tablet TAKE 1 TABLET BY MOUTH EVERY DAY ACTIVE PILLS ONLY norethindro ne acetate 1 mg-ethinyl estradiol 20 mcg tablet TAKE 1 TABLET BY MOUTH EVERY DAY ACTIVE PILLS ONLY No norethindr one acetate 1 mg-ethinyl estradiol 20 mcg tablet TAKE 1 TABLET BY MOUTH EVERY DAY ACTIVE PILLS ONLY [facility] pregabalin 150 mg capsule TAKE 1 CAPSULE BY MOUTH TWICE DAILY NEEDED pregabalin 150 mg capsule TAKE 1 CAPSULE BY MOUTH TWICE DAILY NEEDED No pregabalin 150 mg capsule TAKE 1 CAPSULE BY MOUTH TWICE DAILY NEEDED [facility] tramadol 50 mg tablet TAKE 1 TABLET BY MOUTH EVERY 6 HOURS NEEDED FOR PAIN tramadol 50 mg tablet TAKE 1 TABLET BY MOUTH EVERY 6 HOURS NEEDED FOR PAIN No tramadol 50 mg tablet TAKE 1 TABLET BY MOUTH EVERY 6 HOURS NEEDED FOR PAIN [facility] venlafaxine ER 37.5 mg capsule,ext ended release 24 hr TAKE 1 CAPSULE BY MOUTH DAILY venlafaxine ER 37.5 mg capsule,ext ended release 24 hr TAKE 1 CAPSULE BY MOUTH DAILY No venlafaxin e ER 37.5 mg capsule,ex tended release 24 hr TAKE 1 CAPSULE BY MOUTH DAILY [facility] zolpidem ER 12.5 mg tablet,exte nded release,mul tiphase zolpidem ER 12.5 mg tablet,exte nded release,mul tiphase No zolpidem ER 12.5 mg tablet,ext ended release,mu ltiphase [facility] albuterol sulfate HFA 90 mcg/actuati on aerosol inhaler INHALE 1 TO 2 PUFFS BY MOUTH EVERY 4 TO 6 HOURS NEEDED FOR DIFFICULTY BREATHING albuterol sulfate HFA 90 mcg/actuati on aerosol inhaler INHALE 1 TO 2 PUFFS BY MOUTH EVERY 4 TO 6 HOURS NEEDED FOR DIFFICULTY BREATHING No albuterol sulfate HFA 90 mcg/actuat ion aerosol inhaler INHALE 1 TO 2 PUFFS BY MOUTH EVERY 4 TO 6 HOURS NEEDED FOR DIFFICULTY BREATHING [facility] baclofen 10 mg tablet TAKE 1 TABLET BY MOUTH THREE TIMES DAILY baclofen 10 mg tablet TAKE 1 TABLET BY MOUTH THREE TIMES DAILY No baclofen 10 mg tablet TAKE 1 TABLET BY MOUTH THREE TIMES DAILY [facility] ciprofloxac in 500 mg tablet TAKE 1 TABLET BY MOUTH DAILY FOR 5 DAYS ciprofloxac in 500 mg tablet TAKE 1 TABLET BY MOUTH DAILY FOR 5 DAYS No ciprofloxa carla 500 mg tablet TAKE 1 TABLET BY MOUTH DAILY FOR 5 DAYS [facility] doxycycline hyclate 100 mg capsule TAKE 1 CAPSULE BY MOUTH EVERY 12 HOURS FOR 10 DAYS doxycycline hyclate 100 mg capsule TAKE 1 CAPSULE BY MOUTH EVERY 12 HOURS FOR 10 DAYS No doxycyclin e hyclate 100 mg capsule TAKE 1 CAPSULE BY MOUTH EVERY 12 HOURS FOR 10 DAYS [facility] estradiol 2 mg tablet TAKE 1 TABLET BY MOUTH THREE TIMES DAILY estradiol 2 mg tablet TAKE 1 TABLET BY MOUTH THREE TIMES DAILY No estradiol 2 mg tablet TAKE 1 TABLET BY MOUTH THREE TIMES DAILY [facility] famotidine 20 mg tablet TAKE 1 TABLET BY MOUTH EVERY NIGHT AT BEDTIME famotidine 20 mg tablet TAKE 1 TABLET BY MOUTH EVERY NIGHT AT BEDTIME No famotidine 20 mg tablet TAKE 1 TABLET BY MOUTH EVERY NIGHT AT BEDTIME [facility] fluconazole 150 mg tablet TAKE 1 TABLET BY MOUTH FOR 1 DAY fluconazole 150 mg tablet TAKE 1 TABLET BY MOUTH FOR 1 DAY No fluconazol e 150 mg tablet TAKE 1 TABLET BY MOUTH FOR 1 DAY [facility] ibuprofen 800 mg tablet TAKE 1 TABLET BY MOUTH EVERY 8 HOURS NEEDED ibuprofen 800 mg tablet TAKE 1 TABLET BY MOUTH EVERY 8 HOURS NEEDED No ibuprofen 800 mg tablet TAKE 1 TABLET BY MOUTH EVERY 8 HOURS NEEDED [facility] Lidocaine Viscous 2 % mucosal solution SWISH AND SPIT 5 MILLILITERS EVERY 8 HOURS NEEDED FOR PAIN FOR 5 DAYS Lidocaine Viscous 2 % mucosal solution SWISH AND SPIT 5 MILLILITERS EVERY 8 HOURS NEEDED FOR PAIN FOR 5 DAYS No Lidocaine Viscous 2 % mucosal solution SWISH AND SPIT 5 MILLILITER S EVERY 8 HOURS NEEDED FOR PAIN FOR 5 DAYS [facility] medroxyprog esterone 10 mg tablet TAKE 2 TABLETS BY MOUTH EVERY DAY FOR 21 DAYS medroxyprog esterone 10 mg tablet TAKE 2 TABLETS BY MOUTH EVERY DAY FOR 21 DAYS No medroxypro gesterone 10 mg tablet TAKE 2 TABLETS BY MOUTH EVERY DAY FOR 21 DAYS [facility] medroxyprog esterone 5 mg tablet TAKE 1 TABLET BY MOUTH EVERY DAY medroxyprog esterone 5 mg tablet TAKE 1 TABLET BY MOUTH EVERY DAY No medroxypro gesterone 5 mg tablet TAKE 1 TABLET BY MOUTH EVERY DAY [facility] meloxicam 7.5 mg tablet meloxicam 7.5 mg tablet No meloxicam 7.5 mg tablet [facility] metronidazo le 500 mg tablet Take 1 tablet twice a day by oral route for 5 days. metronidazo le 500 mg tablet Take 1 tablet twice a day by oral route for 5 days. No 1 BID metronidaz ole 500 mg tablet Take 1 tablet twice a day by oral route for 5 days. [facility] naproxen sodium 550 mg tablet TAKE 1 TABLET BY MOUTH EVERY 12 HOURS NEEDED FOR PAIN naproxen sodium 550 mg tablet TAKE 1 TABLET BY MOUTH EVERY 12 HOURS NEEDED FOR PAIN No naproxen sodium 550 mg tablet TAKE 1 TABLET BY MOUTH EVERY 12 HOURS NEEDED FOR PAIN [facility] nitrofurant oin monohydrate /macrocryst als 100 mg capsule TAKE 1 CAPSULE BY MOUTH EVERY 12 HOURS FOR 7 DAYS nitrofurant oin monohydrate /macrocryst als 100 mg capsule TAKE 1 CAPSULE BY MOUTH EVERY 12 HOURS FOR 7 DAYS No nitrofuran toin monohydrat e/macrocry stals 100 mg capsule TAKE 1 CAPSULE BY MOUTH EVERY 12 HOURS FOR 7 DAYS [facility] norethindro ne acetate 1 mg-ethinyl estradiol 20 mcg tablet TAKE 1 TABLET BY MOUTH EVERY DAY ACTIVE PILLS ONLY norethindro ne acetate 1 mg-ethinyl estradiol 20 mcg tablet TAKE 1 TABLET BY MOUTH EVERY DAY ACTIVE PILLS ONLY No norethindr one acetate 1 mg-ethinyl estradiol 20 mcg tablet TAKE 1 TABLET BY MOUTH EVERY DAY ACTIVE PILLS ONLY [facility] phenazopyri dine 200 mg tablet phenazopyri dine 200 mg tablet No phenazopyr idine 200 mg tablet [facility] pregabalin 150 mg capsule TAKE 1 CAPSULE BY MOUTH TWICE DAILY NEEDED pregabalin 150 mg capsule TAKE 1 CAPSULE BY MOUTH TWICE DAILY NEEDED No pregabalin 150 mg capsule TAKE 1 CAPSULE BY MOUTH TWICE DAILY NEEDED [facility] sulfamethox azole 800 mg-trimetho prim 160 mg tablet TAKE 1 TABLET BY MOUTH EVERY 12 HOURS FOR 7 DAYS sulfamethox azole 800 mg-trimetho prim 160 mg tablet TAKE 1 TABLET BY MOUTH EVERY 12 HOURS FOR 7 DAYS No sulfametho xazole 800 mg-trimeth oprim 160 mg tablet TAKE 1 TABLET BY MOUTH EVERY 12 HOURS FOR 7 DAYS [facility] terconazole 0.4 % vaginal cream INSERT 1 APPLICATORF UL VAGINALLY EVERY DAY FOR 7 DAYS terconazole 0.4 % vaginal cream INSERT 1 APPLICATORF UL VAGINALLY EVERY DAY FOR 7 DAYS No terconazol e 0.4 % vaginal cream INSERT 1 APPLICATOR FUL VAGINALLY EVERY DAY FOR 7 DAYS [facility] tramadol 50 mg tablet TAKE 1-2 TABLETS BY MOUTH EVERY 6 HOURS NEEDED FOR ACUTE PAIN tramadol 50 mg tablet TAKE 1-2 TABLETS BY MOUTH EVERY 6 HOURS NEEDED FOR ACUTE PAIN No tramadol 50 mg tablet TAKE 1-2 TABLETS BY MOUTH EVERY 6 HOURS NEEDED FOR ACUTE PAIN [facility] venlafaxine ER 37.5 mg capsule,ext ended release 24 hr TAKE 1 CAPSULE BY MOUTH DAILY venlafaxine ER 37.5 mg capsule,ext ended release 24 hr TAKE 1 CAPSULE BY MOUTH DAILY No venlafaxin e ER 37.5 mg capsule,ex tended release 24 hr TAKE 1 CAPSULE BY MOUTH DAILY [facility] zolpidem ER 12.5 mg tablet,exte nded release,mul tiphase zolpidem ER 12.5 mg tablet,exte nded release,mul tiphase No zolpidem ER 12.5 mg tablet,ext ended release,mu ltiphase [facility] albuterol sulfate HFA 90 mcg/actuati on aerosol inhaler INHALE 1 TO 2 PUFFS BY MOUTH EVERY 4 TO 6 HOURS NEEDED FOR DIFFICULTY BREATHING albuterol sulfate HFA 90 mcg/actuati on aerosol inhaler INHALE 1 TO 2 PUFFS BY MOUTH EVERY 4 TO 6 HOURS NEEDED FOR DIFFICULTY BREATHING No albuterol sulfate HFA 90 mcg/actuat ion aerosol inhaler INHALE 1 TO 2 PUFFS BY MOUTH EVERY 4 TO 6 HOURS NEEDED FOR DIFFICULTY BREATHING [facility] baclofen 10 mg tablet TAKE 1 TABLET BY MOUTH THREE TIMES DAILY baclofen 10 mg tablet TAKE 1 TABLET BY MOUTH THREE TIMES DAILY No baclofen 10 mg tablet TAKE 1 TABLET BY MOUTH THREE TIMES DAILY [facility] ciprofloxac in 500 mg tablet TAKE 1 TABLET BY MOUTH DAILY FOR 5 DAYS ciprofloxac in 500 mg tablet TAKE 1 TABLET BY MOUTH DAILY FOR 5 DAYS No ciprofloxa carla 500 mg tablet TAKE 1 TABLET BY MOUTH DAILY FOR 5 DAYS [facility] doxycycline hyclate 100 mg capsule TAKE 1 CAPSULE BY MOUTH EVERY 12 HOURS FOR 10 DAYS doxycycline hyclate 100 mg capsule TAKE 1 CAPSULE BY MOUTH EVERY 12 HOURS FOR 10 DAYS No doxycyclin e hyclate 100 mg capsule TAKE 1 CAPSULE BY MOUTH EVERY 12 HOURS FOR 10 DAYS [facility] estradiol 2 mg tablet TAKE 1 TABLET BY MOUTH THREE TIMES DAILY estradiol 2 mg tablet TAKE 1 TABLET BY MOUTH THREE TIMES DAILY No estradiol 2 mg tablet TAKE 1 TABLET BY MOUTH THREE TIMES DAILY [facility] famotidine 20 mg tablet TAKE 1 TABLET BY MOUTH EVERY NIGHT AT BEDTIME famotidine 20 mg tablet TAKE 1 TABLET BY MOUTH EVERY NIGHT AT BEDTIME No famotidine 20 mg tablet TAKE 1 TABLET BY MOUTH EVERY NIGHT AT BEDTIME [facility] fluconazole 150 mg tablet TAKE 1 TABLET BY MOUTH FOR 1 DAY fluconazole 150 mg tablet TAKE 1 TABLET BY MOUTH FOR 1 DAY No fluconazol e 150 mg tablet TAKE 1 TABLET BY MOUTH FOR 1 DAY [facility] ibuprofen 800 mg tablet TAKE 1 TABLET BY MOUTH EVERY 8 HOURS NEEDED ibuprofen 800 mg tablet TAKE 1 TABLET BY MOUTH EVERY 8 HOURS NEEDED No ibuprofen 800 mg tablet TAKE 1 TABLET BY MOUTH EVERY 8 HOURS NEEDED [facility] Lidocaine Viscous 2 % mucosal solution SWISH AND SPIT 5 MILLILITERS EVERY 8 HOURS NEEDED FOR PAIN FOR 5 DAYS Lidocaine Viscous 2 % mucosal solution SWISH AND SPIT 5 MILLILITERS EVERY 8 HOURS NEEDED FOR PAIN FOR 5 DAYS No Lidocaine Viscous 2 % mucosal solution SWISH AND SPIT 5 MILLILITER S EVERY 8 HOURS NEEDED FOR PAIN FOR 5 DAYS [facility] medroxyprog esterone 10 mg tablet TAKE 2 TABLETS BY MOUTH EVERY DAY FOR 21 DAYS medroxyprog esterone 10 mg tablet TAKE 2 TABLETS BY MOUTH EVERY DAY FOR 21 DAYS No medroxypro gesterone 10 mg tablet TAKE 2 TABLETS BY MOUTH EVERY DAY FOR 21 DAYS [facility] medroxyprog esterone 5 mg tablet TAKE 1 TABLET BY MOUTH EVERY DAY medroxyprog esterone 5 mg tablet TAKE 1 TABLET BY MOUTH EVERY DAY No medroxypro gesterone 5 mg tablet TAKE 1 TABLET BY MOUTH EVERY DAY [facility] meloxicam 7.5 mg tablet meloxicam 7.5 mg tablet No meloxicam 7.5 mg tablet [facility] metronidazo le 500 mg tablet Take 1 tablet twice a day by oral route for 5 days. metronidazo le 500 mg tablet Take 1 tablet twice a day by oral route for 5 days. No 1 BID metronidaz ole 500 mg tablet Take 1 tablet twice a day by oral route for 5 days. [facility] naproxen sodium 550 mg tablet TAKE 1 TABLET BY MOUTH EVERY 12 HOURS NEEDED FOR PAIN naproxen sodium 550 mg tablet TAKE 1 TABLET BY MOUTH EVERY 12 HOURS NEEDED FOR PAIN No naproxen sodium 550 mg tablet TAKE 1 TABLET BY MOUTH EVERY 12 HOURS NEEDED FOR PAIN [facility] nitrofurant oin monohydrate /macrocryst als 100 mg capsule TAKE 1 CAPSULE BY MOUTH EVERY 12 HOURS FOR 7 DAYS nitrofurant oin monohydrate /macrocryst als 100 mg capsule TAKE 1 CAPSULE BY MOUTH EVERY 12 HOURS FOR 7 DAYS No nitrofuran toin monohydrat e/macrocry stals 100 mg capsule TAKE 1 CAPSULE BY MOUTH EVERY 12 HOURS FOR 7 DAYS [facility] norethindro ne acetate 1 mg-ethinyl estradiol 20 mcg tablet TAKE 1 TABLET BY MOUTH EVERY DAY ACTIVE PILLS ONLY norethindro ne acetate 1 mg-ethinyl estradiol 20 mcg tablet TAKE 1 TABLET BY MOUTH EVERY DAY ACTIVE PILLS ONLY No norethindr one acetate 1 mg-ethinyl estradiol 20 mcg tablet TAKE 1 TABLET BY MOUTH EVERY DAY ACTIVE PILLS ONLY [facility] phenazopyri dine 200 mg tablet phenazopyri dine 200 mg tablet No phenazopyr idine 200 mg tablet [facility] pregabalin 150 mg capsule TAKE 1 CAPSULE BY MOUTH TWICE DAILY NEEDED pregabalin 150 mg capsule TAKE 1 CAPSULE BY MOUTH TWICE DAILY NEEDED No pregabalin 150 mg capsule TAKE 1 CAPSULE BY MOUTH TWICE DAILY NEEDED [facility] sulfamethox azole 800 mg-trimetho prim 160 mg tablet TAKE 1 TABLET BY MOUTH EVERY 12 HOURS FOR 7 DAYS sulfamethox azole 800 mg-trimetho prim 160 mg tablet TAKE 1 TABLET BY MOUTH EVERY 12 HOURS FOR 7 DAYS No sulfametho xazole 800 mg-trimeth oprim 160 mg tablet TAKE 1 TABLET BY MOUTH EVERY 12 HOURS FOR 7 DAYS [facility] terconazole 0.4 % vaginal cream INSERT 1 APPLICATORF UL VAGINALLY EVERY DAY FOR 7 DAYS terconazole 0.4 % vaginal cream INSERT 1 APPLICATORF UL VAGINALLY EVERY DAY FOR 7 DAYS No terconazol e 0.4 % vaginal cream INSERT 1 APPLICATOR FUL VAGINALLY EVERY DAY FOR 7 DAYS [facility] tramadol 50 mg tablet TAKE 1-2 TABLETS BY MOUTH EVERY 6 HOURS NEEDED FOR ACUTE PAIN tramadol 50 mg tablet TAKE 1-2 TABLETS BY MOUTH EVERY 6 HOURS NEEDED FOR ACUTE PAIN No tramadol 50 mg tablet TAKE 1-2 TABLETS BY MOUTH EVERY 6 HOURS NEEDED FOR ACUTE PAIN [facility] venlafaxine ER 37.5 mg capsule,ext ended release 24 hr TAKE 1 CAPSULE BY MOUTH DAILY venlafaxine ER 37.5 mg capsule,ext ended release 24 hr TAKE 1 CAPSULE BY MOUTH DAILY No venlafaxin e ER 37.5 mg capsule,ex tended release 24 hr TAKE 1 CAPSULE BY MOUTH DAILY [facility] zolpidem ER 12.5 mg tablet,exte nded release,mul tiphase zolpidem ER 12.5 mg tablet,exte nded release,mul tiphase No zolpidem ER 12.5 mg tablet,ext ended release,mu ltiphase [facility] albuterol sulfate HFA 90 mcg/actuati on aerosol inhaler INHALE 1 TO 2 PUFFS BY MOUTH EVERY 4 TO 6 HOURS NEEDED FOR DIFFICULTY BREATHING albuterol sulfate HFA 90 mcg/actuati on aerosol inhaler INHALE 1 TO 2 PUFFS BY MOUTH EVERY 4 TO 6 HOURS NEEDED FOR DIFFICULTY BREATHING No albuterol sulfate HFA 90 mcg/actuat ion aerosol inhaler INHALE 1 TO 2 PUFFS BY MOUTH EVERY 4 TO 6 HOURS NEEDED FOR DIFFICULTY BREATHING [facility] famotidine 20 mg tablet TAKE 1 TABLET BY MOUTH EVERY NIGHT AT BEDTIME famotidine 20 mg tablet TAKE 1 TABLET BY MOUTH EVERY NIGHT AT BEDTIME No famotidine 20 mg tablet TAKE 1 TABLET BY MOUTH EVERY NIGHT AT BEDTIME [facility] fluconazole 150 mg tablet TAKE 1 TABLET BY MOUTH FOR 1 DAY fluconazole 150 mg tablet TAKE 1 TABLET BY MOUTH FOR 1 DAY No fluconazol e 150 mg tablet TAKE 1 TABLET BY MOUTH FOR 1 DAY [facility] ibuprofen 800 mg tablet Take 1 tablet every 6 hours by oral route as needed. ibuprofen 800 mg tablet Take 1 tablet every 6 hours by oral route as needed. No 1 Q6H ibuprofen 800 mg tablet Take 1 tablet every 6 hours by oral route as needed. [facility] Lidocaine Viscous 2 % mucosal solution SWISH AND SPIT 5 MILLILITERS EVERY 8 HOURS NEEDED FOR PAIN FOR 5 DAYS Lidocaine Viscous 2 % mucosal solution SWISH AND SPIT 5 MILLILITERS EVERY 8 HOURS NEEDED FOR PAIN FOR 5 DAYS No Lidocaine Viscous 2 % mucosal solution SWISH AND SPIT 5 MILLILITER S EVERY 8 HOURS NEEDED FOR PAIN FOR 5 DAYS [facility] medroxyprog esterone 10 mg tablet TAKE 2 TABLETS BY MOUTH EVERY DAY FOR 21 DAYS medroxyprog esterone 10 mg tablet TAKE 2 TABLETS BY MOUTH EVERY DAY FOR 21 DAYS No medroxypro gesterone 10 mg tablet TAKE 2 TABLETS BY MOUTH EVERY DAY FOR 21 DAYS [facility] meloxicam 7.5 mg tablet meloxicam 7.5 mg tablet No meloxicam 7.5 mg tablet [facility] metronidazo le 500 mg tablet TAKE 1 TABLET BY MOUTH TWICE DAILY FOR 5 DAYS metronidazo le 500 mg tablet TAKE 1 TABLET BY MOUTH TWICE DAILY FOR 5 DAYS No metronidaz ole 500 mg tablet TAKE 1 TABLET BY MOUTH TWICE DAILY FOR 5 DAYS [facility] naproxen sodium 550 mg tablet TAKE 1 TABLET BY MOUTH EVERY 12 HOURS NEEDED FOR PAIN naproxen sodium 550 mg tablet TAKE 1 TABLET BY MOUTH EVERY 12 HOURS NEEDED FOR PAIN No naproxen sodium 550 mg tablet TAKE 1 TABLET BY MOUTH EVERY 12 HOURS NEEDED FOR PAIN [facility] phenazopyri dine 200 mg tablet phenazopyri dine 200 mg tablet No phenazopyr idine 200 mg tablet [facility] pregabalin 150 mg capsule TAKE 1 CAPSULE BY MOUTH TWICE DAILY NEEDED pregabalin 150 mg capsule TAKE 1 CAPSULE BY MOUTH TWICE DAILY NEEDED No pregabalin 150 mg capsule TAKE 1 CAPSULE BY MOUTH TWICE DAILY NEEDED [facility] sulfamethox azole 800 mg-trimetho prim 160 mg tablet TAKE 1 TABLET BY MOUTH EVERY 12 HOURS FOR 7 DAYS sulfamethox azole 800 mg-trimetho prim 160 mg tablet TAKE 1 TABLET BY MOUTH EVERY 12 HOURS FOR 7 DAYS No sulfametho xazole 800 mg-trimeth oprim 160 mg tablet TAKE 1 TABLET BY MOUTH EVERY 12 HOURS FOR 7 DAYS [facility] terconazole 0.4 % vaginal cream INSERT 1 APPLICATORF UL VAGINALLY EVERY DAY FOR 7 DAYS terconazole 0.4 % vaginal cream INSERT 1 APPLICATORF UL VAGINALLY EVERY DAY FOR 7 DAYS No terconazol e 0.4 % vaginal cream INSERT 1 APPLICATOR FUL VAGINALLY EVERY DAY FOR 7 DAYS [facility] tramadol 50 mg tablet TAKE 1-2 TABLETS BY MOUTH EVERY 6 HOURS NEEDED FOR ACUTE PAIN tramadol 50 mg tablet TAKE 1-2 TABLETS BY MOUTH EVERY 6 HOURS NEEDED FOR ACUTE PAIN No tramadol 50 mg tablet TAKE 1-2 TABLETS BY MOUTH EVERY 6 HOURS NEEDED FOR ACUTE PAIN [facility] Tylenol-Cod eine #3 300 mg-30 mg tablet 1-2 p.o. q 6 hrs PRN pain Tylenol-Cod eine #3 300 mg-30 mg tablet 1-2 p.o. q 6 hrs PRN pain No Tylenol-Co deine #3 300 mg-30 mg tablet 1-2 p.o. q 6 hrs PRN pain [facility] venlafaxine ER 37.5 mg capsule,ext ended release 24 hr TAKE 1 CAPSULE BY MOUTH DAILY venlafaxine ER 37.5 mg capsule,ext ended release 24 hr TAKE 1 CAPSULE BY MOUTH DAILY No venlafaxin e ER 37.5 mg capsule,ex tended release 24 hr TAKE 1 CAPSULE BY MOUTH DAILY [facility] zolpidem ER 12.5 mg tablet,exte nded release,mul tiphase TAKE 1 TABLET BY MOUTH EVERY NIGHT FOR INSOMNIA zolpidem ER 12.5 mg tablet,exte nded release,mul tiphase TAKE 1 TABLET BY MOUTH EVERY NIGHT FOR INSOMNIA No zolpidem ER 12.5 mg tablet,ext ended release,mu ltiphase TAKE 1 TABLET BY MOUTH EVERY NIGHT FOR INSOMNIA [facility] acetaminoph en 300 mg-codeine 30 mg tablet TAKE 1 TO 2 TABLETS BY MOUTH EVERY 6 HOURS NEEDED FOR PAIN acetaminoph en 300 mg-codeine 30 mg tablet TAKE 1 TO 2 TABLETS BY MOUTH EVERY 6 HOURS NEEDED FOR PAIN No acetaminop hen 300 mg-codeine 30 mg tablet TAKE 1 TO 2 TABLETS BY MOUTH EVERY 6 HOURS NEEDED FOR PAIN [facility] albuterol sulfate HFA 90 mcg/actuati on aerosol inhaler INHALE 1 TO 2 PUFFS BY MOUTH EVERY 4 TO 6 HOURS NEEDED FOR DIFFICULTY BREATHING albuterol sulfate HFA 90 mcg/actuati on aerosol inhaler INHALE 1 TO 2 PUFFS BY MOUTH EVERY 4 TO 6 HOURS NEEDED FOR DIFFICULTY BREATHING No albuterol sulfate HFA 90 mcg/actuat ion aerosol inhaler INHALE 1 TO 2 PUFFS BY MOUTH EVERY 4 TO 6 HOURS NEEDED FOR DIFFICULTY BREATHING [facility] famotidine 20 mg tablet TAKE 1 TABLET BY MOUTH EVERY NIGHT AT BEDTIME famotidine 20 mg tablet TAKE 1 TABLET BY MOUTH EVERY NIGHT AT BEDTIME No famotidine 20 mg tablet TAKE 1 TABLET BY MOUTH EVERY NIGHT AT BEDTIME [facility] fluconazole 150 mg tablet TAKE 1 TABLET BY MOUTH FOR 1 DAY fluconazole 150 mg tablet TAKE 1 TABLET BY MOUTH FOR 1 DAY No fluconazol e 150 mg tablet TAKE 1 TABLET BY MOUTH FOR 1 DAY [facility] ibuprofen 800 mg tablet TAKE 1 TABLET BY MOUTH EVERY 6 HOURS NEEDED ibuprofen 800 mg tablet TAKE 1 TABLET BY MOUTH EVERY 6 HOURS NEEDED No ibuprofen 800 mg tablet TAKE 1 TABLET BY MOUTH EVERY 6 HOURS NEEDED [facility] Lidocaine Viscous 2 % mucosal solution SWISH AND SPIT 5 MILLILITERS EVERY 8 HOURS NEEDED FOR PAIN FOR 5 DAYS Lidocaine Viscous 2 % mucosal solution SWISH AND SPIT 5 MILLILITERS EVERY 8 HOURS NEEDED FOR PAIN FOR 5 DAYS No Lidocaine Viscous 2 % mucosal solution SWISH AND SPIT 5 MILLILITER S EVERY 8 HOURS NEEDED FOR PAIN FOR 5 DAYS [facility] medroxyprog esterone 10 mg tablet TAKE 2 TABLETS BY MOUTH EVERY DAY FOR 21 DAYS medroxyprog esterone 10 mg tablet TAKE 2 TABLETS BY MOUTH EVERY DAY FOR 21 DAYS No medroxypro gesterone 10 mg tablet TAKE 2 TABLETS BY MOUTH EVERY DAY FOR 21 DAYS [facility] meloxicam 7.5 mg tablet meloxicam 7.5 mg tablet No meloxicam 7.5 mg tablet [facility] metronidazo le 500 mg tablet TAKE 1 TABLET BY MOUTH TWICE DAILY FOR 5 DAYS metronidazo le 500 mg tablet TAKE 1 TABLET BY MOUTH TWICE DAILY FOR 5 DAYS No metronidaz ole 500 mg tablet TAKE 1 TABLET BY MOUTH TWICE DAILY FOR 5 DAYS [facility] naproxen sodium 550 mg tablet TAKE 1 TABLET BY MOUTH EVERY 12 HOURS NEEDED FOR PAIN naproxen sodium 550 mg tablet TAKE 1 TABLET BY MOUTH EVERY 12 HOURS NEEDED FOR PAIN No naproxen sodium 550 mg tablet TAKE 1 TABLET BY MOUTH EVERY 12 HOURS NEEDED FOR PAIN [facility] phenazopyri dine 200 mg tablet phenazopyri dine 200 mg tablet No phenazopyr idine 200 mg tablet [facility] pregabalin 150 mg capsule TAKE 1 CAPSULE BY MOUTH TWICE DAILY NEEDED pregabalin 150 mg capsule TAKE 1 CAPSULE BY MOUTH TWICE DAILY NEEDED No pregabalin 150 mg capsule TAKE 1 CAPSULE BY MOUTH TWICE DAILY NEEDED [facility] sulfamethox azole 800 mg-trimetho prim 160 mg tablet TAKE 1 TABLET BY MOUTH EVERY 12 HOURS FOR 7 DAYS sulfamethox azole 800 mg-trimetho prim 160 mg tablet TAKE 1 TABLET BY MOUTH EVERY 12 HOURS FOR 7 DAYS No sulfametho xazole 800 mg-trimeth oprim 160 mg tablet TAKE 1 TABLET BY MOUTH EVERY 12 HOURS FOR 7 DAYS [facility] terconazole 0.4 % vaginal cream INSERT 1 APPLICATORF UL VAGINALLY EVERY DAY FOR 7 DAYS terconazole 0.4 % vaginal cream INSERT 1 APPLICATORF UL VAGINALLY EVERY DAY FOR 7 DAYS No terconazol e 0.4 % vaginal cream INSERT 1 APPLICATOR FUL VAGINALLY EVERY DAY FOR 7 DAYS [facility] tramadol 50 mg tablet TAKE 1-2 TABLETS BY MOUTH EVERY 6 HOURS NEEDED FOR ACUTE PAIN tramadol 50 mg tablet TAKE 1-2 TABLETS BY MOUTH EVERY 6 HOURS NEEDED FOR ACUTE PAIN No tramadol 50 mg tablet TAKE 1-2 TABLETS BY MOUTH EVERY 6 HOURS NEEDED FOR ACUTE PAIN [facility] venlafaxine ER 37.5 mg capsule,ext ended release 24 hr TAKE 1 CAPSULE BY MOUTH DAILY venlafaxine ER 37.5 mg capsule,ext ended release 24 hr TAKE 1 CAPSULE BY MOUTH DAILY No venlafaxin e ER 37.5 mg capsule,ex tended release 24 hr TAKE 1 CAPSULE BY MOUTH DAILY [facility] zolpidem ER 12.5 mg tablet,exte nded release,mul tiphase TAKE 1 TABLET BY MOUTH EVERY NIGHT FOR INSOMNIA zolpidem ER 12.5 mg tablet,exte nded release,mul tiphase TAKE 1 TABLET BY MOUTH EVERY NIGHT FOR INSOMNIA No zolpidem ER 12.5 mg tablet,ext ended release,mu ltiphase TAKE 1 TABLET BY MOUTH EVERY NIGHT FOR INSOMNIA [facility] azithromyci n 250 mg tablet TAKE 2 TABLETS BY MOUTH FOR 1 DAY THEN TAKE 1 TABLET BY MOUTH DAILY FOR 4 DAYS azithromyci n 250 mg tablet TAKE 2 TABLETS BY MOUTH FOR 1 DAY THEN TAKE 1 TABLET BY MOUTH DAILY FOR 4 DAYS No azithromyc in 250 mg tablet TAKE 2 TABLETS BY MOUTH FOR 1 DAY THEN TAKE 1 TABLET BY MOUTH DAILY FOR 4 DAYS [facility] azithromyci n 500 mg tablet TAKE 2 TABLETS BY MOUTH EVERY DAY FOR 1 DAY azithromyci n 500 mg tablet TAKE 2 TABLETS BY MOUTH EVERY DAY FOR 1 DAY No azithromyc in 500 mg tablet TAKE 2 TABLETS BY MOUTH EVERY DAY FOR 1 DAY [facility] ciprofloxac in 500 mg tablet TAKE 1 TABLET BY MOUTH IN THE MORNING AND TAKE 1 TABLET BY MOUTH IN THE EVENING. DO ALL THIS FOR 7 DAYS ciprofloxac in 500 mg tablet TAKE 1 TABLET BY MOUTH IN THE MORNING AND TAKE 1 TABLET BY MOUTH IN THE EVENING. DO ALL THIS FOR 7 DAYS No ciprofloxa carla 500 mg tablet TAKE 1 TABLET BY MOUTH IN THE MORNING AND TAKE 1 TABLET BY MOUTH IN THE EVENING. DO ALL THIS FOR 7 DAYS [facility] Diflucan 100 mg tablet Take 1 tablet every day by oral route for 3 days. Diflucan 100 mg tablet Take 1 tablet every day by oral route for 3 days. No 1 Q1D Diflucan 100 mg tablet Take 1 tablet every day by oral route for 3 days. [facility] doxycycline hyclate 100 mg capsule doxycycline hyclate 100 mg capsule No doxycyclin e hyclate 100 mg capsule [facility] famotidine 20 mg tablet TAKE 1 TABLET BY MOUTH EVERY NIGHT AT BEDTIME famotidine 20 mg tablet TAKE 1 TABLET BY MOUTH EVERY NIGHT AT BEDTIME No famotidine 20 mg tablet TAKE 1 TABLET BY MOUTH EVERY NIGHT AT BEDTIME [facility] fluconazole 150 mg tablet TAKE 1 TABLET BY MOUTH EVERY OTHER DAY FOR 6 DAYS fluconazole 150 mg tablet TAKE 1 TABLET BY MOUTH EVERY OTHER DAY FOR 6 DAYS No fluconazol e 150 mg tablet TAKE 1 TABLET BY MOUTH EVERY OTHER DAY FOR 6 DAYS [facility] hydroxychlo roquine 200 mg tablet TAKE 1 TABLET BY MOUTH DAILY hydroxychlo roquine 200 mg tablet TAKE 1 TABLET BY MOUTH DAILY No hydroxychl oroquine 200 mg tablet TAKE 1 TABLET BY MOUTH DAILY [facility] ibuprofen 800 mg tablet TAKE 1 TABLET BY MOUTH EVERY 6 HOURS NEEDED ibuprofen 800 mg tablet TAKE 1 TABLET BY MOUTH EVERY 6 HOURS NEEDED No ibuprofen 800 mg tablet TAKE 1 TABLET BY MOUTH EVERY 6 HOURS NEEDED [facility] medroxyprog esterone 10 mg tablet TAKE 2 TABLETS BY MOUTH EVERY DAY FOR 21 DAYS medroxyprog esterone 10 mg tablet TAKE 2 TABLETS BY MOUTH EVERY DAY FOR 21 DAYS No medroxypro gesterone 10 mg tablet TAKE 2 TABLETS BY MOUTH EVERY DAY FOR 21 DAYS [facility] meloxicam 7.5 mg tablet meloxicam 7.5 mg tablet No meloxicam 7.5 mg tablet [facility] metronidazo le 500 mg tablet Take 1 tablet twice a day by oral route for 5 days. metronidazo le 500 mg tablet Take 1 tablet twice a day by oral route for 5 days. No 1 BID metronidaz ole 500 mg tablet Take 1 tablet twice a day by oral route for 5 days. [facility] nitrofurant oin monohydrate /macrocryst als 100 mg capsule TAKE 1 CAPSULE BY MOUTH EVERY 12 HOURS FOR 7 DAYS nitrofurant oin monohydrate /macrocryst als 100 mg capsule TAKE 1 CAPSULE BY MOUTH EVERY 12 HOURS FOR 7 DAYS No nitrofuran toin monohydrat e/macrocry stals 100 mg capsule TAKE 1 CAPSULE BY MOUTH EVERY 12 HOURS FOR 7 DAYS [facility] ondansetron 4 mg disintegrat ing tablet ondansetron 4 mg disintegrat ing tablet No ondansetro n 4 mg disintegra ting tablet [facility] oseltamivir 75 mg capsule TAKE 1 CAPSULE BY MOUTH IN THE MORNING AND 1 CAPSULE IN THE EVENING FOR 5 DAYS oseltamivir 75 mg capsule TAKE 1 CAPSULE BY MOUTH IN THE MORNING AND 1 CAPSULE IN THE EVENING FOR 5 DAYS No oseltamivi r 75 mg capsule TAKE 1 CAPSULE BY MOUTH IN THE MORNING AND 1 CAPSULE IN THE EVENING FOR 5 DAYS [facility] phenazopyri dine 200 mg tablet TAKE 1 TABLET BY MOUTH THREE TIMES DAILY AFTER MEALS FOR 2 DAYS phenazopyri dine 200 mg tablet TAKE 1 TABLET BY MOUTH THREE TIMES DAILY AFTER MEALS FOR 2 DAYS No phenazopyr idine 200 mg tablet TAKE 1 TABLET BY MOUTH THREE TIMES DAILY AFTER MEALS FOR 2 DAYS [facility] prednisone 10 mg tablet TAKE 3 TABLETS BY MOUTH EVERY MORNING WITH FOOD FOR 5 DAYS prednisone 10 mg tablet TAKE 3 TABLETS BY MOUTH EVERY MORNING WITH FOOD FOR 5 DAYS No prednisone 10 mg tablet TAKE 3 TABLETS BY MOUTH EVERY MORNING WITH FOOD FOR 5 DAYS [facility] pregabalin 150 mg capsule TAKE 1 CAPSULE BY MOUTH THREE TIMES DAILY pregabalin 150 mg capsule TAKE 1 CAPSULE BY MOUTH THREE TIMES DAILY No pregabalin 150 mg capsule TAKE 1 CAPSULE BY MOUTH THREE TIMES DAILY [facility] venlafaxine ER 37.5 mg capsule,ext ended release 24 hr TAKE 1 CAPSULE BY MOUTH DAILY venlafaxine ER 37.5 mg capsule,ext ended release 24 hr TAKE 1 CAPSULE BY MOUTH DAILY No venlafaxin e ER 37.5 mg capsule,ex tended release 24 hr TAKE 1 CAPSULE BY MOUTH DAILY [facility] zolpidem ER 12.5 mg tablet,exte nded release,mul tiphase TAKE 1 TABLET BY MOUTH EVERY NIGHT FOR INSOMNIA zolpidem ER 12.5 mg tablet,exte nded release,mul tiphase TAKE 1 TABLET BY MOUTH EVERY NIGHT FOR INSOMNIA No zolpidem ER 12.5 mg tablet,ext ended release,mu ltiphase TAKE 1 TABLET BY MOUTH EVERY NIGHT FOR INSOMNIA [facility] Immunizations Ordered Immunization Name Filled Immunization Name Date Status Comments Source HPV9 - ML HPV9 - ML 2017-12-06 00:00:00 Completed [facility] HPV9 - ML HPV9 - ML 2017-12-06 00:00:00 Completed [facility] HPV9 - ML HPV9 - ML 2017-12-06 00:00:00 Completed [facility] HPV9 - ML HPV9 - ML 2016-08-29 00:00:00 Completed [facility] HPV9 - ML HPV9 - ML 2016-08-29 00:00:00 Completed [facility] HPV9 - ML HPV9 - ML 2016-08-29 00:00:00 Completed [facility] meningococcal MCV4P - ML meningococcal MCV4P - ML 2012-07-09 00:00:00 Completed [facility] Tdap - ML Tdap - ML 2012-07-09 00:00:00 Completed [facility] meningococcal MCV4P - ML meningococcal MCV4P - ML 2012-07-09 00:00:00 Completed [facility] Tdap - ML Tdap - ML 2012-07-09 00:00:00 Completed [facility] meningococcal MCV4P - ML meningococcal MCV4P - ML 2012-07-09 00:00:00 Completed [facility] Tdap - ML Tdap - ML 2012-07-09 00:00:00 Completed [facility] varicella - ML varicella - ML 2006-07-10 00:00:00 Completed [facility] varicella - ML varicella - ML 2006-07-10 00:00:00 Completed [facility] varicella - ML varicella - ML 2006-07-10 00:00:00 Completed [facility] Hep B, adolescent or pediatric - ML Hep B, adolescent or pediatric - ML 1999 00:00:00 Completed [facility] Hep B, adolescent or pediatric - ML Hep B, adolescent or pediatric - ML 1999 00:00:00 Completed [facility] Hep B, adolescent or pediatric - ML Hep B, adolescent or pediatric - ML 1999 00:00:00 Completed [facility] HPV9 - ML HPV9 - ML Unknown Completed [facility] HPV9 - ML HPV9 - ML Unknown Completed [facility] meningococcal MCV4P - ML meningococcal MCV4P - ML Unknown Completed [facility] Tdap - ML Tdap - ML Unknown Completed [facility] varicella - ML varicella - ML Unknown Completed [facility] Hep B, adolescent or pediatric - ML Hep B, adolescent or pediatric - ML Unknown Completed [facility] HPV9 - ML HPV9 - ML Unknown Completed [facility] HPV9 - ML HPV9 - ML Unknown Completed [facility] meningococcal MCV4P - ML meningococcal MCV4P - ML Unknown Completed [facility] Tdap - ML Tdap - ML Unknown Completed [facility] varicella - ML varicella - ML Unknown Completed [facility] Hep B, adolescent or pediatric - ML Hep B, adolescent or pediatric - ML Unknown Completed [facility] Vital Signs Vital Name Observation Time Observation Value Comments S ource BP Diastolic 2023-06-27 00:00:00 78 mm[Hg] [facility] BP Systolic 2023-06-27 00:00:00 110 mm[Hg] [facility] Height 2023-06-27 00:00:00 63 [in_i] [facility] Body Weight 2023-06-27 00:00:00 1748 [oz_av] [facility] BMI (Body Mass Index) 2023-06-27 00:00:00 19.4 kg/m2 [facility] Body Weight 2023-06-01 00:00:00 1750 [oz_av] [facility] BMI (Body Mass Index) 2023-06-01 00:00:00 19.4 kg/m2 [facility] BP Diastolic 2023-06-01 00:00:00 90 mm[Hg] [facility] BP Systolic 2023-06-01 00:00:00 133 mm[Hg] [facility] Height 2023-06-01 00:00:00 63 [in_i] [facility] BP Diastolic 2022-12-19 00:00:00 82 mm[Hg] [facility] BP Systolic 2022-12-19 00:00:00 120 mm[Hg] [facility] Height 2022-12-19 00:00:00 63 [in_i] [facility] Body Weight 2022-12-19 00:00:00 112.2 [lb_av] [facility] BMI (Body Mass Index) 2022-12-19 00:00:00 19.9 kg/m2 [facility] BP Diastolic 2022-10-23 00:00:00 77 mm[Hg] [facility] Height 2022-10-23 00:00:00 63 [in_i] [facility] BMI (Body Mass Index) 2022-10-23 00:00:00 20.7 kg/m2 [facility] BP Systolic 2022-10-23 00:00:00 117 mm[Hg] [facility] Body Weight 2022-10-23 00:00:00 116.6 [lb_av] [facility] BP Diastolic 2022-09-26 00:00:00 77 mm[Hg] [facility] Height 2022-09-26 00:00:00 63 [in_i] [facility] BMI (Body Mass Index) 2022-09-26 00:00:00 19.8 kg/m2 [facility] BP Systolic 2022-09-26 00:00:00 117 mm[Hg] [facility] Body Weight 2022-09-26 00:00:00 112 [lb_av] [facility] BP Diastolic 2022-07-17 00:00:00 72 mm[Hg] [facility] Height 2022-07-17 00:00:00 63 [in_i] [facility] BMI (Body Mass Index) 2022-07-17 00:00:00 20 kg/m2 [facility] BP Systolic 2022-07-17 00:00:00 118 mm[Hg] [facility] Body Weight 2022-07-17 00:00:00 112.7 [lb_av] [facility] BP Diastolic 2022-07-03 00:00:00 71 mm[Hg] [facility] Height 2022-07-03 00:00:00 63 [in_i] [facility] BMI (Body Mass Index) 2022-07-03 00:00:00 19.6 kg/m2 [facility] BP Systolic 2022-07-03 00:00:00 113 mm[Hg] [facility] Body Weight 2022-07-03 00:00:00 110.9 [lb_av] [facility] BP Diastolic 2022-06-22 00:00:00 68 mm[Hg] [facility] Height 2022-06-22 00:00:00 63 [in_i] [facility] BMI (Body Mass Index) 2022-06-22 00:00:00 20.7 kg/m2 [facility] BP Systolic 2022-06-22 00:00:00 116 mm[Hg] [facility] Body Weight 2022-06-22 00:00:00 117 [lb_av] [facility] BP Diastolic 2022-05-01 00:00:00 75 mm[Hg] [facility] Height 2022-05-01 00:00:00 63 [in_i] [facility] BMI (Body Mass Index) 2022-05-01 00:00:00 20.5 kg/m2 [facility] BP Systolic 2022-05-01 00:00:00 124 mm[Hg] [facility] Body Weight 2022-05-01 00:00:00 116 [lb_av] [facility] BP Diastolic 2022-04-13 00:00:00 80 mm[Hg] [facility] Height 2022-04-13 00:00:00 63 [in_i] [facility] BMI (Body Mass Index) 2022-04-13 00:00:00 20.7 kg/m2 [facility] BP Systolic 2022-04-13 00:00:00 123 mm[Hg] [facility] Body Weight 2022-04-13 00:00:00 116.7 [lb_av] [facility] BP Diastolic 2021-11-10 00:00:00 79 mm[Hg] [facility] Height 2021-11-10 00:00:00 63 [in_i] [facility] BMI (Body Mass Index) 2021-11-10 00:00:00 19.9 kg/m2 [facility] BP Systolic 2021-11-10 00:00:00 124 mm[Hg] [facility] Body Weight 2021-11-10 00:00:00 112.2 [lb_av] [facility] BP Diastolic 2021-09-09 00:00:00 79 mm[Hg] [facility] Height 2021-09-09 00:00:00 63 [in_i] [facility] BMI (Body Mass Index) 2021-09-09 00:00:00 19.2 kg/m2 [facility] BP Systolic 2021-09-09 00:00:00 120 mm[Hg] [facility] Body Weight 2021-09-09 00:00:00 108.6 [lb_av] [facility] BP Diastolic 2021-06-23 00:00:00 80 mm[Hg] [facility] Height 2021-06-23 00:00:00 63 [in_i] [facility] BMI (Body Mass Index) 2021-06-23 00:00:00 19.3 kg/m2 [facility] BP Systolic 2021-06-23 00:00:00 123 mm[Hg] [facility] Body Weight 2021-06-23 00:00:00 108.7 [lb_av] [facility] BP Diastolic 2021-05-27 00:00:00 83 mm[Hg] [facility] Height 2021-05-27 00:00:00 63 [in_i] [facility] BMI (Body Mass Index) 2021-05-27 00:00:00 19 kg/m2 [facility] BP Systolic 2021-05-27 00:00:00 121 mm[Hg] [facility] Body Weight 2021-05-27 00:00:00 107.5 [lb_av] [facility] BP Diastolic 2021-02-01 00:00:00 76 mm[Hg] [facility] Height 2021-02-01 00:00:00 63 [in_i] [facility] BMI (Body Mass Index) 2021-02-01 00:00:00 19.9 kg/m2 [facility] BP Systolic 2021-02-01 00:00:00 115 mm[Hg] [facility] Body Weight 2021-02-01 00:00:00 112.6 [lb_av] [facility] BP Diastolic 2020-12-14 00:00:00 79 mm[Hg] [facility] Height 2020-12-14 00:00:00 63 [in_i] [facility] BMI (Body Mass Index) 2020-12-14 00:00:00 19.4 kg/m2 [facility] BP Systolic 2020-12-14 00:00:00 115 mm[Hg] [facility] Body Weight 2020-12-14 00:00:00 109.4 [lb_av] [facility] BP Diastolic 2020-10-19 00:00:00 70 mm[Hg] [facility] Height 2020-10-19 00:00:00 63 [in_i] [facility] BMI (Body Mass Index) 2020-10-19 00:00:00 19.1 kg/m2 [facility] BP Systolic 2020-10-19 00:00:00 113 mm[Hg] [facility] Body Weight 2020-10-19 00:00:00 108 [lb_av] [facility] BP Diastolic 2020-10-05 00:00:00 77 mm[Hg] [facility] Height 2020-10-05 00:00:00 63 [in_i] [facility] BMI (Body Mass Index) 2020-10-05 00:00:00 19.1 kg/m2 [facility] BP Systolic 2020-10-05 00:00:00 115 mm[Hg] [facility] Body Weight 2020-10-05 00:00:00 107.6 [lb_av] [facility] BP Diastolic 2020-08-31 00:00:00 78 mm[Hg] [facility] Height 2020-08-31 00:00:00 63 [in_i] [facility] BP Systolic 2020-08-31 00:00:00 119 mm[Hg] [facility] BP Diastolic 2020-07-07 00:00:00 82 mm[Hg] [facility] Height 2020-07-07 00:00:00 63 [in_i] [facility] BMI (Body Mass Index) 2020-07-07 00:00:00 18.6 kg/m2 [facility] BP Systolic 2020-07-07 00:00:00 126 mm[Hg] [facility] Body Weight 2020-07-07 00:00:00 105 [lb_av] [facility] Systolic (mm Hg) 2022-01-05 15:27:00 [facility] Diastolic (mm Hg) 2022-01-05 15:27:00 [facility] Heart Rate 2022-01-05 15:27:00 [facility] Respitory Rate 2022-01-05 15:27:00 [facility] Height 2022-01-05 15:27:00 160.02 cm [facility] Weight 2022-01-05 15:27:00 [facility] BMI Calculated 2022-01-05 15:27:00 [facility] Systolic (mm Hg) 2021-07-08 20:48:00 [facility] Diastolic (mm Hg) 2021-07-08 20:48:00 [facility] Heart Rate 2021-07-08 20:48:00 [facility] Respitory Rate 2021-07-08 20:48:00 [facility] Height 2021-07-08 20:48:00 160.02 cm [facility] Weight 2021-07-08 20:48:00 [facility] BMI Calculated 2021-07-08 20:48:00 [facility] Systolic (mm Hg) 2021-03-01 19:08:00 [facility] Diastolic (mm Hg) 2021-03-01 19:08:00 [facility] Heart Rate 2021-03-01 19:08:00 [facility] Respitory Rate 2021-03-01 19:08:00 [facility] Height 2021-03-01 19:08:00 160.02 cm [facility] Weight 2021-03-01 19:08:00 [facility] BMI Calculated 2021-03-01 19:08:00 [facility] Systolic (mm Hg) 2020-04-20 22:06:00 [facility] Diastolic (mm Hg) 2020-04-20 22:06:00 [facility] Heart Rate 2020-04-20 22:06:00 [facility] Respitory Rate 2020-04-20 22:06:00 [facility] Height 2020-04-20 22:06:00 160.02 cm [facility] Weight 2020-04-20 22:06:00 [facility] BMI Calculated 2020-04-20 22:06:00 [facility] Systolic (mm Hg) 2020-03-08 17:51:00 [facility] Diastolic (mm Hg) 2020-03-08 17:51:00 [facility] Heart Rate 2020-03-08 17:51:00 [facility] Height 2020-03-08 17:51:00 160.02 cm [facility] Weight 2020-03-08 17:51:00 [facility] BMI Calculated 2020-03-08 17:51:00 [facility] Temperature Oral (F) 2020-03-06 06:14:00 97.6 F [facility] Respitory Rate 2020-03-06 06:14:00 [facility] Systolic (mm Hg) 2020-03-06 06:14:00 [facility] Diastolic (mm Hg) 2020-03-06 06:14:00 [facility] Systolic (mm Hg) 2020-03-06 05:49:00 [facility] Diastolic (mm Hg) 2020-03-06 05:49:00 [facility] Respitory Rate 2020-03-06 05:49:00 [facility] Respitory Rate 2020-03-06 04:41:00 [facility] Systolic (mm Hg) 2020-03-06 04:41:00 [facility] Diastolic (mm Hg) 2020-03-06 04:41:00 [facility] Height 2020-03-06 04:01:00 160.02 cm [facility] BMI Calculated 2020-03-06 04:01:00 [facility] Weight 2020-03-06 04:01:00 [facility] Heart Rate 2020-03-06 04:01:00 [facility] Temperature Oral (F) 2020-03-06 04:01:00 98.4 F [facility] Systolic (mm Hg) 2020-03-04 17:53:00 [facility] Diastolic (mm Hg) 2020-03-04 17:53:00 [facility] Heart Rate 2020-03-04 17:53:00 [facility] Respitory Rate 2020-03-04 17:53:00 [facility] Height 2020-03-04 17:53:00 160.02 cm [facility] Weight 2020-03-04 17:53:00 [facility] BMI Calculated 2020-03-04 17:53:00 [facility] Systolic (mm Hg) 2019-10-22 15:14:00 [facility] Diastolic (mm Hg) 2019-10-22 15:14:00 [facility] Heart Rate 2019-10-22 15:14:00 [facility] Respitory Rate 2019-10-22 15:14:00 [facility] Temperature Oral (F) 2019-10-22 15:14:00 99.1 F [facility] Height 2019-10-22 15:14:00 160.02 cm [facility] Weight 2019-10-22 15:14:00 [facility] BMI Calculated 2019-10-22 15:14:00 [facility] Systolic (mm Hg) 2019-03-20 19:47:00 [facility] Diastolic (mm Hg) 2019-03-20 19:47:00 [facility] Heart Rate 2019-03-20 19:47:00 [facility] Respitory Rate 2019-03-20 19:47:00 [facility] Height 2019-03-20 19:47:00 160.02 cm [facility] Weight 2019-03-20 19:47:00 [facility] BMI Calculated 2019-03-20 19:47:00 [facility] Systolic (mm Hg) 2019-02-21 18:37:00 [facility] Diastolic (mm Hg) 2019-02-21 18:37:00 [facility] Heart Rate 2019-02-21 18:37:00 [facility] Respitory Rate 2019-02-21 18:37:00 [facility] Height 2019-02-21 18:37:00 160.02 cm [facility] BMI Calculated 2019-02-21 18:37:00 [facility] Weight 2019-02-21 18:37:00 [facility] Systolic (mm Hg) 2019-02-06 18:08:00 [facility] Diastolic (mm Hg) 2019-02-06 18:08:00 [facility] Heart Rate 2019-02-06 18:08:00 [facility] Respitory Rate 2019-02-06 18:08:00 [facility] Height 2019-02-06 18:08:00 160.02 cm [facility] Weight 2019-02-06 18:08:00 [facility] BMI Calculated 2019-02-06 18:08:00 [facility] Systolic (mm Hg) 2018-12-05 19:46:00 [facility] Diastolic (mm Hg) 2018-12-05 19:46:00 [facility] Heart Rate 2018-12-05 19:46:00 [facility] Respitory Rate 2018-12-05 19:46:00 [facility] Height 2018-12-05 19:46:00 160.02 cm [facility] Weight 2018-12-05 19:46:00 [facility] BMI Calculated 2018-12-05 19:46:00 [facility] Weight 2018-10-30 20:17:00 [facility] BMI Calculated 2018-10-30 20:17:00 [facility] Height 2018-10-30 20:17:00 160.02 cm [facility] Heart Rate 2018-10-30 20:17:00 [facility] Systolic (mm Hg) 2018-10-30 20:17:00 [facility] Diastolic (mm Hg) 2018-10-30 20:17:00 [facility] Respitory Rate 2018-10-30 20:17:00 [facility] Height 2018-09-18 20:43:00 160.02 cm [facility] Weight 2018-09-18 20:43:00 [facility] BMI Calculated 2018-09-18 20:43:00 [facility] Respitory Rate 2018-09-18 20:43:00 [facility] Heart Rate 2018-09-18 20:43:00 [facility] Systolic (mm Hg) 2018-09-18 20:43:00 [facility] Diastolic (mm Hg) 2018-09-18 20:43:00 [facility] Heart Rate 2018-06-18 22:49:00 [facility] Systolic (mm Hg) 2018-06-18 22:49:00 [facility] Diastolic (mm Hg) 2018-06-18 22:49:00 [facility] Heart Rate 2018-06-18 21:02:00 [facility] Systolic (mm Hg) 2018-06-18 21:02:00 [facility] Diastolic (mm Hg) 2018-06-18 21:02:00 [facility] Systolic (mm Hg) 2018-06-14 14:20:00 [facility] Diastolic (mm Hg) 2018-06-14 14:20:00 [facility] Heart Rate 2018-06-14 14:20:00 [facility] Systolic (mm Hg) 2018-06-14 13:30:00 [facility] Diastolic (mm Hg) 2018-06-14 13:30:00 [facility] Heart Rate 2018-06-14 13:30:00 [facility] Respitory Rate 2018-06-14 13:30:00 [facility] Diastolic (mm Hg) 2018-06-14 01:30:00 [facility] Systolic (mm Hg) 2018-06-14 01:30:00 [facility] Heart Rate 2018-06-14 01:30:00 [facility] Respitory Rate 2018-06-14 01:30:00 [facility] Respitory Rate 2018-06-13 19:30:00 [facility] Temperature Oral (F) 2018-06-11 13:30:00 97.8 F [facility] Temperature Oral (F) 2018-06-11 01:30:00 98 F [facility] Temperature Oral (F) 2018-06-09 01:30:00 97.2 F [facility] Weight 2018-05-18 02:22:00 [facility] BMI Calculated 2018-05-18 02:22:00 [facility] Height 2018-05-18 02:22:00 160.02 cm [facility] Temperature Oral (F) 2018-05-17 13:51:00 98.6 F [facility] Heart Rate 2018-05-17 13:51:00 [facility] Respitory Rate 2018-05-17 13:51:00 [facility] Systolic (mm Hg) 2018-05-17 13:51:00 [facility] Diastolic (mm Hg) 2018-05-17 13:51:00 [facility] Temperature Oral (F) 2018-05-17 10:58:00 98.3 F [facility] Heart Rate 2018-05-17 10:58:00 [facility] Respitory Rate 2018-05-17 10:58:00 [facility] Systolic (mm Hg) 2018-05-17 10:58:00 [facility] Diastolic (mm Hg) 2018-05-17 10:58:00 [facility] Temperature Oral (F) 2018-05-17 06:58:00 98.9 F [facility] Heart Rate 2018-05-17 06:58:00 [facility] Respitory Rate 2018-05-17 06:58:00 [facility] Systolic (mm Hg) 2018-05-17 06:58:00 [facility] Diastolic (mm Hg) 2018-05-17 06:58:00 [facility] Height 2018-05-11 11:00:00 160.02 cm [facility] Height 2018-05-11 09:44:00 160.02 cm [facility] Height 2018-05-11 07:00:00 160.02 cm [facility] Weight 2018-04-21 04:09:00 [facility] BMI Calculated 2018-04-21 04:09:00 [facility] Weight 2018-04-21 04:06:00 [facility] BMI Calculated 2018-04-21 04:06:00 [facility] Systolic (mm Hg) 2018-04-21 00:04:00 [facility] Diastolic (mm Hg) 2018-04-21 00:04:00 [facility] Height 2018-04-20 23:33:00 160.02 cm [facility] Systolic (mm Hg) 2018-04-20 23:00:00 [facility] Diastolic (mm Hg) 2018-04-20 23:00:00 [facility] Respitory Rate 2018-04-20 23:00:00 [facility] Systolic (mm Hg) 2018-04-20 22:00:00 [facility] Diastolic (mm Hg) 2018-04-20 22:00:00 [facility] Respitory Rate 2018-04-20 22:00:00 [facility] Height 2018-04-20 21:28:00 160.02 cm [facility] Respitory Rate 2018-04-20 21:00:00 [facility] Height 2018-04-20 19:25:00 160.02 cm [facility] Temperature Oral (F) 2018-04-16 18:50:00 98.6 F [facility] Temperature Oral (F) 2018-04-16 15:13:00 98.3 F [facility] Temperature Oral (F) 2018-04-16 10:00:00 98.6 F [facility] BMI Calculated 2018-04-14 08:36:00 [facility] Weight 2018-04-14 08:36:00 [facility] Heart Rate 2018-04-14 07:00:00 [facility] BMI Calculated 2018-04-14 07:00:00 [facility] Weight 2018-04-14 07:00:00 [facility] Procedures Procedure Date / Time Performed Performing Clinician Source unlisted imaging order 2021-02-01 00:00:00 [facility] US, transvaginal 2020-10-05 00:00:00 Bo lomas [facility] Gastrostomy Tube [facility] Other [facility] Program Tracheostomy [facility] Laparoscopy<sup>1</sup> [facility] Procedure<sup>2</sup> [facility] Tonsillectomy and adenoidectomy<sup>3</sup > [facility] Percutaneous Endoscopic Gastrostomy [facility] Laparoscopy, Diagnostic (Surg) [facility] Plan of Care Planned Activity Planned Date Details Comments Source Diagnostic Test Pending 2023-06-27 00:00:00 urinalysis, dipstick [code = urinalysis, dipstick] [facility] Program Diagnostic Test Pending 2023-06-27 00:00:00 culture, urine [code = culture, urine] [facility] Diagnostic Test Pending 2022-12-19 00:00:00 CT + NG DNA, PCR, cervical [code = CT + NG DNA, PCR, cervical] [facility] Diagnostic Test Pending 2022-12-19 00:00:00 wet mount, vaginal [code = wet mount, vaginal] [facility] Diagnostic Test Pending 2022-12-19 00:00:00 test, urine [code = test, urine] [facility] Diagnostic Test Pending 2022-12-19 00:00:00 urinalysis, dipstick [code = urinalysis, dipstick] [facility] Diagnostic Test Pending 2022-12-19 00:00:00 culture, urine [code = culture, urine] [facility] Instructions [facility] Encounters Start Date/Time End Date/Time Encounter Type Admission Type Attending [facility] Care Facility Care Department Encounter ID Source 2023-08-22 19:39:00 2023-08-22 22:50:00 Emergency E JAKE KILPATRICK [facility] [id number] [facility] 2023-07-25 00:00:00 2023-07-25 00:00:00 [facility] [id number] [facility] Program 2023-07-24 00:00:00 2023-07-24 00:00:00 Outpatient G_Pappas [facility]G MMG [id number] [facility] 2023-07-05 00:00:00 2023-07-05 00:00:00 Outpatient LISTER_MELI SSA [facility] [id number] [facility] 2023-06-27 00:00:00 2023-06-27 00:00:00 Outpatient LISTER_MELI SSA [facility] [id number] [facility] 2023-06-27 00:00:00 2023-06-27 00:00:00 Shani Nelson, DIVERSIFIED CROPS SUPERVISOR: [place] [address] , Ph. [facility] [id number] [facility] 2023-06-09 00:00:00 2023-06-09 00:00:00 Outpatient LISTER_MELI SSA [facility] [id number] [facility] 2023-06-04 00:00:00 2023-06-04 00:00:00 Outpatient LISTER_MELI SSA [facility] [id number] [facility] 2023-06-02 00:00:00 2023-06-02 00:00:00 Outpatient G_Pappas MMG MMG [id number] [facility] 2023-06-01 00:00:00 2023-06-01 00:00:00 Outpatient GC_GCBZW_Ka diyala_S [facility] [id number] [facility] 2023-06-01 00:00:00 2023-06-01 00:00:00 Outpatient LISTER_MELI SSA [facility] [id number] [facility] 2023-06-01 00:00:00 2023-06-01 00:00:00 Shani Nelson, DIVERSIFIED CROPS SUPERVISOR: [place] [address] , Ph. [facility] [id number] [facility] 2023-02-09 00:00:00 2023-02-09 00:00:00 Outpatient GC_GCBZW_Ka diyala_S [facility] [id number] [facility] 2022-12-19 12:21:00 2022-12-19 12:21:00 Outpatient [facility] [id number] [facility] 2022-12-19 00:00:00 2022-12-19 00:00:00 Outpatient MattLucialibby [facility] [id number] [facility] 2022-12-19 00:00:00 2022-12-19 00:00:00 Roosevelt Rizvi MD: [address] [place] [address], [address], [place] [address] , Ph. [phone] [facility] [id number] 2022-11-01 00:00:00 2022-11-01 00:00:00 Outpatient DELANEY_MELI SSA [facility] [id number] [facility] 2022-10-23 00:00:00 2022-10-23 00:00:00 Outpatient LISTER_MELI SSA [facility] [id number] [facility] 2022-10-23 00:00:00 2022-10-23 00:00:00 Tita Orozco, DIVERSIFIED CROPS SUPERVISOR: Carley Benites, [place] [address] , Ph. [facility] G[facility] [id number] [facility] 2022-10-22 00:00:00 2022-10-22 00:00:00 Outpatient LISTER_MELI SSA [facility] [id number] [facility] 2022-10-05 09:00:00 2022-10-05 09:00:00 Outpatient PAT SISINIKKI [id number] 24 Huma Johnson 2022-10-02 00:00:00 2022-10-02 00:00:00 Outpatient DELANEY_ROSELYNI SSA [facility] [id number] [facility] 2022-09-26 00:00:00 2022-09-26 00:00:00 Outpatient LISTER_MELI SSA [facility] [id number] [facility] 2022-09-26 00:00:00 2022-09-26 00:00:00 Tita Orozco, DIVERSIFIED CROPS SUPERVISOR: [address] [place] [address] , Ph. 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 [phone] [facility] OBN [id number] [facility] 2022-07-15 00:00:00 2022-07-15 00:00:00 Outpatient G_Pappas MMG MMG [id number] [facility] 2022-07-05 07:17:00 2022-07-05 07:17:00 Outpatient [facility] [id number] [facility] 2022-07-03 00:00:00 2022-07-03 00:00:00 Outpatient G_Pappas MMG MMG [id number] [facility] 2022-07-03 00:00:00 2022-07-03 00:00:00 Roosevelt Rizvi MD: [address], [address], [place] [address] , Ph. [phone] [facility] [id number] [facility] 2022-06-22 16:53:00 2022-06-22 16:53:00 Outpatient Roosevelt [facility] [id number] [facility] 2022-06-22 00:00:00 2022-06-22 00:00:00 Outpatient G_Pappas MMG MMG [id number] [facility] 2022-06-22 00:00:00 2022-06-22 00:00:00 Roosevelt Rizvi MD: [address], [address], [place] [address] , Ph. 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 [phone] MMG [facility] OBGYN [id number] [facility] 2022-01-05 15:00:00 2022-01-06 04:59:59 Outpatient nullFlavo r [facility] [place] [id number] [facility] keshia Johnson 2021-11-10 00:00:00 2021-11-10 00:00:00 Outpatient G_Pappas MMG MMG [id number] [facility] 2021-11-10 00:00:00 2021-11-10 00:00:00 Arlin Aguilar [facility]: [address] [address] , Ph. [phone] [facility] [id number] [facility] 2021-11-09 00:00:00 2021-11-09 00:00:00 Outpatient G_Pappas MMG MMG [id number] [facility] 2021-10-20 14:27:00 2021-10-20 14:27:00 Outpatient [facility] [id number] [facility] 2021-10-19 12:28:00 2021-10-19 12:28:00 Outpatient G_Pappas MMG MMG [id number] [facility] 2021-10-05 05:53:00 2021-10-05 05:53:00 Outpatient G_Pappas MMG MMG [id number] [facility] 2021-09-20 11:45:00 2021-09-20 11:45:00 Outpatient G_Pappas MMG MMG [id number] [facility] 2021-09-11 11:36:00 2021-09-11 11:36:00 Outpatient G_Pappas MMG MMG [id number] [facility] 2021-09-09 09:29:00 2021-09-09 09:29:00 Outpatient G_Pappas MMG MMG [id number] [facility] 2021-09-09 00:00:00 2021-09-09 00:00:00 Roosevelt Rizvi MD: [address] [address] , Ph. [phone] MM[facility] [id number] [facility] 2021-08-19 20:00:00 2021-08-19 20:00:00 Ambulatory Pre-Reg nullFlavo r [facility] [place] [id number] 22 Huma Johnson 2021-07-30 20:21:00 2021-07-31 04:59:00 Outpt Diag Services nullFlavo r [facility] [place] [id number] 01 Huma Johnson 2021-07-08 21:00:00 2021-07-09 04:59:59 Outpatient nullFlavo r [facility] [place] [id number] 21 Huma Johnson 2021-06-23 03:14:00 2021-06-23 03:14:00 Outpatient G_Pappas MMG MMG [id number] [facility] 2021-06-23 00:00:00 2021-06-23 00:00:00 Roosevelt Rizvi MD: [address] [address] , Ph. [phone] MMG [facility] OBGYN [id number] [facility] 2021-06-21 06:26:00 2021-06-21 06:26:00 Outpatient G_Pappas MMG MMG [id number] [facility] 2021-06-21 06:23:00 2021-06-21 06:23:00 Outpatient G_[place] [id number] [facility] 2021-06-15 04:01:00 2021-06-15 04:01:00 Outpatient G_Pappas MMG MMG [id number] [facility] 2021-05-27 09:22:00 2021-05-27 09:22:00 Outpatient G_Pappas MMG [facility] [id number] [facility] 2021-05-27 00:00:00 2021-05-27 00:00:00 Roosevelt Rizvi MD: [address] [place] [address] , Ph. [phone] MMG [facility] [place] - [facility]BGYN [id number] [facility] 2021-05-23 11:11:00 2021-05-23 11:11:00 Outpatient Rutledge_L MMG [facility] [id number] [facility] 2021-05-12 11:57:00 2021-05-12 11:57:00 Outpatient LISTER_MELI EDIS [facility] [id number] [facility] Program 2021-03-30 21:15:00 2021-03-30 21:15:00 Ambulatory Pre-Reg nullFlavo r [facility] [place] [id number] Huma Johnson 2021-03-02 15:30:00 2021-03-03 05:59:59 Outpatient nullFlavo r [facility] [place] [id number] 19 Huma Johnson 2021-03-01 19:00:00 2021-03-02 05:59:59 Outpatient nullFlavo r [facility] [place] [id number] 18 Huma Johnson 2021-02-11 14:15:00 2021-02-11 14:15:00 Ambulatory Pre-Reg nullFlavo r [facility] [place] [id number] Huma Johnson 2021-02-08 14:10:37 2021-02-10 04:59:59 Outside Medical Records nullFlavo r [facility] [place] [id number] Huma Johnson 2021-02-04 13:45:00 2021-02-04 13:45:00 Outpatient ARLIN RODRIGUEZ [facility] [id number] [facility] 2021-02-01 10:44:00 2021-02-01 10:44:00 Outpatient Rutledge_L MMG MMG [id number] [facility] 2021-02-01 10:43:00 2021-02-01 10:43:00 Outpatient ARLIN RODRIGUEZ [facility] [id number] [facility] 2021-02-01 00:00:00 2021-02-01 00:00:00 Arlin Aguilar [facility]: [address] [address] , Ph. [phone] MM[facility] - OBGYN [id number] [facility] 2021-01-31 09:03:00 2021-01-31 09:03:00 Outpatient Rutledge_L MMG MMG [id number] [facility] 2020-12-14 10:22:00 2020-12-14 10:22:00 Outpatient Rutledge_L MMG MMG [id number] [facility] 2020-12-14 00:00:00 2020-12-14 00:00:00 Arlin Jeff [facility]: [address] [address] , Ph. [phone] [facility] [id number] [facility] 2020-10-19 14:13:00 2020-10-19 14:13:00 Outpatient CATALINO HuertaRadha [facility] [id number] [facility] 2020-10-19 02:43:00 2020-10-19 02:43:00 Outpatient Rutledge_L MMG MMG [id number] [facility] 2020-10-19 00:00:00 2020-10-19 00:00:00 Radha Huerta MD: [address] [facility] [address] [place] [address] , Ph. [phone] MM[facility] OBGYN [id number] [facility] 2020-10-13 08:11:00 2020-10-13 08:11:00 Outpatient Rutledge_L MMG MMG [id number] [facility] 2020-10-08 11:14:00 2020-10-08 11:14:00 Outpatient Radha Lucas [facility] [id number] [facility] 2020-10-05 10:22:00 2020-10-05 10:22:00 Outpatient Rutledge_L MMG MMG [id number] [facility] 2020-10-05 00:00:00 2020-10-05 00:00:00 Radha Huerta MD: [address] [address] , Ph. [phone] MM[facility] OBGYN [id number] [facility] 2020-10-04 02:59:00 2020-10-04 02:59:00 Outpatient Rutledge_L MMG MMG [id number] [facility] 2020-09-17 01:01:00 2020-09-17 01:01:00 Outpatient Rutledge_L MMG MMG [id number] [facility] 2020-09-14 08:42:00 2020-09-14 08:42:00 Outpatient Radha Lucas [facility] [id number] [facility] 2020-08-31 10:06:00 2020-08-31 10:06:00 Outpatient Rutledge_L MMG MMG [id number] [facility] 2020-08-31 00:00:00 2020-08-31 00:00:00 Radha Huerta MD: [address] [place] [address] , Ph. [phone] MMG [facility] OBGYN [id number] [facility] 2020-07-30 10:41:00 2020-07-30 10:41:00 Outpatient Rutledge_L MMG MMG [id number] [facility] 2020-07-20 14:30:00 2020-07-20 14:30:00 Ambulatory Pre-Reg nullFlavo r [facility] [place] [id number] 16 Huma Johnson 2020-07-13 09:28:00 2020-07-13 09:28:00 Outpatient Rutledge_L MMG MMG [id number] [facility] 2020-07-07 09:57:00 2020-07-07 09:57:00 Outpatient Rutledge_L MMG MMG [id number] [facility] 2020-07-07 00:00:00 2020-07-07 00:00:00 Radha Huerta MD: [address] [place] [address] , Ph. [phone] [id number] 2020-06-07 11:18:00 2020-06-07 11:18:00 Outpatient Rutledge_L MMG MMG [id number] [facility] 2020-04-20 21:45:00 2020-04-21 05:59:59 Outpatient nullFlavo r [facility] [place] [id number] Huma Johnson 2020-04-05 15:45:00 2020-04-05 15:45:00 Ambulatory Pre-Reg nullFlavo r [facility] [place] [id number] Huma Johnson 2020-03-22 08:45:00 2020-03-22 08:45:00 Outpatient MHIE MHIE [id number] Huma Johnson 2020-03-06 03:51:29 2020-03-06 06:24:00 Emergency nullFlavo r Gagan Silverio [id number] 06 Huma Johnson 2020-03-04 17:45:00 2020-03-05 05:59:59 Outpatient nullFlavo r [facility] [place] [id number] Huma Johnson 2020-03-04 19:45:00 2020-03-04 19:45:00 Ambulatory Pre-Reg nullFlavo r [facility] [place] [id number] Huma Johnson 2019-12-17 14:30:00 2019-12-17 14:30:00 Outpatient R SHYLA WILKERSON [facility] [id number] [facility] 2019-12-05 18:00:00 2019-12-05 18:00:00 Ambulatory Pre-Reg nullFlavo r [facility] [place] [id number] Huma Johnson 2019-11-04 19:45:00 2019-11-04 19:45:00 Ambulatory Pre-Reg nullFlavo r [facility] [place] [id number] Huma Johnson 2019-10-22 15:00:00 2019-10-23 04:59:59 Outpatient nullFlavo r [facility] [place] [id number] 09 Huma Johnson 2019-10-09 19:45:00 2019-10-09 19:45:00 Ambulatory Pre-Reg nullFlavo r [facility] [place] [id number] 07 Huma Johnson 2019-08-01 18:30:00 2019-08-01 18:30:00 Ambulatory Pre-Reg nullFlavo r [facility] [place] [id number] Huma Johnson 2019-07-19 00:00:00 2019-07-19 00:00:00 Telephone Shereen Dunn [facility] .840.114 [id number] 2019-07-16 14:17:02 2019-07-16 15:38:12 Urgent Care Po, Acute Care Clinic [facility] 1..840.114 [id number] 2019-07-16 12:00:00 2019-07-16 12:00:00 Outpatient R SALVATORE ZAPATA [facility] [id number] Francisca [facility] 2019-07-16 00:00:00 2019-07-16 00:00:00 Telephone Ramos [facility] [id number] 2019-03-20 19:30:00 2019-03-21 05:59:59 Outpatient nullFlavo r [facility] [place] [id number] 05 Huma Johnson 2019-03-06 15:00:00 2019-03-06 15:00:00 Ambulatory Pre-Reg nullFlavo r [facility] [place] [id number] Huma Johnson 2019-02-21 17:57:00 2019-02-22 05:59:00 Outpatient nullFlavo r TR BT- Adult BI (ABIR) [id number] 05 Huma Johnson 2019-02-06 18:30:00 2019-02-07 04:59:59 Outpatient nullFlavo r [facility] [place] [id number] 04 Huma Johnson 2018-12-05 19:45:00 2018-12-06 04:59:59 Outpatient nullFlavo r [facility] [place] [id number] Huma Johnson 2018-11-06 18:00:00 2018-11-06 18:00:00 Ambulatory Pre-Reg nullFlavo r [facility] [id number] Huma Johnson 2018-10-30 21:15:00 2018-10-31 04:59:59 Outpatient nullFlavo r [facility] [place] [id number] Huma Johnson 2018-09-18 19:24:00 2018-09-19 04:59:00 Outpatient nullFlavo r TR BT- Adult BI (ABIR) [id number] Huma Johnson 2018-07-22 15:00:00 2018-08-21 04:59:00 Tots Therapy nullFlavo r [facility] [id number] Huma Hilarioann 2018-06-18 14:00:00 2018-07-18 04:59:00 Tots Therapy nullFlavo r [facility] [id number] Huma Hilarioann 2018-07-09 14:47:00 2018-07-10 04:59:00 Outpatient nullFlavo r [facility] [id number] [facility] 2018-05-18 02:07:00 2018-06-14 16:45:00 Inpatient Rehab nullFlavo r [facility] [id number] [facility] 2018-04-21 02:05:00 2018-05-17 20:00:00 Inpatient nullFlavo r [facility] [id number] Huma [facility] 2018-04-14 06:25:00 2018-04-21 01:35:00 Inpatient nullFlavo r [facility] [id number] [facility] 2013-02-15 11:23:00 2013-02-15 12:45:00 Emergency ER MALAIKA HINOJOSA [facility] [id number] [facility] 2012-12-15 12:15:00 2012-12-15 17:47:00 Emergency ER REILLY LEMA [facility] [id number] [facility] 2012-08-20 09:05:00 2012-08-20 10:34:00 Emergency ER DARRICK PITO [facility] [id number] [facility] 2012-05-16 11:50:00 2012-05-16 18:46:00 Emergency ER SOTERO VILLAGRAN [facility] [id number] [facility] Results Test Description Test Time Test Comments Results Result Co mments Source [facility] ProgramChlamydia trachomatis and Neisseria gonorrhoeae and Trichomonas vaginalis DNA panel - Urine by JAMIR with probe [id number] 00:00:00* Test Item Value Reference Range Interpretation Comme nts Mycoplasma genitalium DNA [P resence] in Urine by JAMIR with probe detection (test code = 40679-7) negative negative Mycoplasma hominis DNA [Pres ence] in Specimen by JAMIR with probe detection (test code = 88873-7) positive negative A Ureaplasma sp DNA [Presence] in Specimen by JAMIR with probe detection (test code = 42621-6) positive negative A Trichomonas vaginalis rRNA [Presence] in Urine by JAMIR with probe detection (test code = 31977-2) negative negative Chlamydia trachomatis rRNA [Presence] in Urine by JAMIR with probe detection (test code = 33414-8) negative negative Neisseria gonorrhoeae rRNA [Presence] in Urine by JAMIR with probe detection (test code = 00471-2) negative negative [facility] ProgramHerpes simplex virus 1+2 IgG Ab [Units/volume] in Serum by [id number] 00:00:00* Test Item Value Reference Range Interpretation Comme nts Herpes simplex virus 1 IgG A b [Units/volume] in Serum by Immunoassay (test code = 5206-8) 44.50 index 0.00-0.90 H Herpes simplex virus 2 IgG A b [Units/volume] in Serum by Immunoassay (test code = 5209-2) <0.91 0.00-0.90 [facility] ProgramBacteria identified in Urine by [id number] 00:00:00* Test Item Value Reference Range Interpretation Comme nts Bacteria identified in Urine by Culture (test code = 630-4) no growth [facility] ProgramHepatitis B virus surface Ab [Presence] in [id number] 00:00:00* Test Item Value Reference Range Interpretation Comme nts Hepatitis B virus surface Ab [Presence] in Serum (test code = 73817-0) non reactive [facility] ProgramReagin Ab [Presence] in Serum by RPR 2023-06-02 00:00:00* Test Item Value Reference Range Interpretation Comme nts Reagin Ab [Presence] in Seru m by RPR (test code = 70801-1) non reactive non reactive [facility] ProgramHIV 1 and 2 tests - Meaningful Use [id number] 00:00:00* Test Item Value Reference Range Interpretation Comme nts HIV 1+2 Ab+HIV1 p24 Ag [Presence] in Serum or Plasma by Immunoassay (test code = 60411-1) non reactive non reactive [facility] ProgramHepatitis C virus IgG Ab [Presence] in Serum or Plasma by Iftmfrpakuy2580-86-57 00:00:00* Test Item Value Reference Range Interpretation Comme nts Hepatitis C virus IgG Ab [Presence] in Serum or Plasma by Immunoassay (test code = 90132-7) non reactive non reactive [facility] ProgramHepatitis B virus surface Ag [Presence] in Serum or Plasma by Egtbgddsibg0587-67-00 00:00:00* Test Item Value Reference Range Interpretation Comme nts Hepatitis B virus surface Ag [Presence] in Serum or Plasma by Immunoassay (test code = 5196-1) negative negative [facility] Programplease [id number] 00:00:00* Test Item Value Reference Range Interpretation Comme nts please note (test code = please note) comment [facility] Programpregnancy test, [id number] 13:43:35* Test Item Value Reference Range Interpretation Comme nts HCG (test code = HCG) negative [facility] Programpregnancy test, [id number] 13:43:35* Test Item Value Reference Range Interpretation Comme nts HCG (test code = HCG) negative [facility] ProgramUrinalysis macro (dipstick) panel - [id number] 13:43:14* Test Item Value Reference Range Interpretation Comme nts Leukocytes (test code = Leukocytes) 3+ Nitrite (test code = Nitrite) - Urobilinogen (test code = Urobilinogen) - Protein (test code = Protein) - pH (test code = pH) 6.0 Blood (test code = Blood) +- Specific [place] (test code = Specific [place]) 1.010 Ketone (test code = Ketone) - Bilirubin (test code = Bilirubin) - Glucose (test code = Glucose) - Appearance (test code = Appearance) clear Color (test code = Color) yellow [facility] ProgramUrinalysis macro (dipstick) panel - [id number] 13:43:14* Test Item Value Reference Range Interpretation Comme nts Leukocytes (test code = Leukocytes) 3+ Nitrite (test code = Nitrite) - Urobilinogen (test code = Urobilinogen) - Protein (test code = Protein) - pH (test code = pH) 6.0 Blood (test code = Blood) +- Specific [place] (test code = Specific [place]) 1.010 Ketone (test code = Ketone) - Bilirubin (test code = Bilirubin) - Glucose (test code = Glucose) - Appearance (test code = Appearance) clear Color (test code = Color) yellow [facility] ProgramMicroscopic observation [Identifier] in Vaginal fluid by Wet plvjremyous8784-39-79 11:33:22* Test Item Value Reference Range Interpretation Comme nts Clue Cells (test code = Clue Cells) positive WBCs (test code = WBCs) positive Trichomonads (test code = Trichomonads) negative Epithelial cells (test code = Epithelial cells) normal RBCs (test code = RBCs) [facility] [id number] 11:16:47* Test Item Value Reference Range Interpretation Comme nts Test (test code = Test) negative [facility] (dipstick) panel - [id number] 11:16:33* Test Item Value Reference Range Interpretation Comme nts Leukocytes (test code = Leukocytes) Trace Nitrite (test code = Nitrite) negative Urobilinogen (test code = Urobilinogen) .2 Protein (test code = Protein) Negative pH (test code = pH) 5.5 Blood (test code = Blood) Non-Hemolyzed: Trace Specific [place] (test code = Specific [place]) 1.010 Ketone (test code = Ketone) Negative Bilirubin (test code = Bilirubin) Negative Glucose (test code = Glucose) Negative Appearance (test code = Appearance) Clear Color (test code = Color) Yellow [facility] GroupBacteria identified in Urine by [id number] 00:00:00* Test Item Value Reference Range Interpretation Comme nts Bacteria identified in Urine by Culture (test code = 630-4) escherichia coli A Other Antibiotic [Susceptibility] (test code = 25837-4) comment [facility] ProgramVaginal pathogens panel - Vaginal fluid by JAMIR with probe [id number] 00:00:00* Test Item Value Reference Range Interpretation Comme nts Atopobium vaginae DNA [Prese nce] in Vaginal fluid by JAMIR with probe detection (test code = 05055-2) low - 0 Bacterial vaginosis associat ed bacterium 2 DNA [Presence] in Vaginal fluid by JAMIR with probe detection (test code = 07986-0) low - 0 Megasphaera sp type 1 DNA [P resence] in Vaginal fluid by JAMIR with probe detection (test code = 41055-6) low - 0 Teresa albicans DNA [Presen ce] in Vaginal fluid by JAMIR with probe detection (test code = 91877-8) negative negative Teresa glabrata DNA [Presen ce] in Vaginal fluid by JAMIR with probe detection (test code = 68460-4) negative negative Trichomonas vaginalis DNA [P resence] in Vaginal fluid by JAMIR with probe detection (test code = 62585-9) negative negative Chlamydia trachomatis DNA [P resence] in Vaginal fluid by JAMIR with probe detection (test code = 76347-7) positive negative A Neisseria gonorrhoeae DNA [P resence] in Vaginal fluid by JAMIR with probe detection (test code = 19236-7) negative negative [facility] ProgramUrinalysis macro (dipstick) panel - [id number] 14:16:00* Test Item Value Reference Range Interpretation Comme nts Leukocytes (test code = Leukocytes) large Nitrite (test code = Nitrite) postive Urobilinogen (test code = Urobilinogen) 0.2 Protein (test code = Protein) neg pH (test code = pH) 6.0 Blood (test code = Blood) large Specific [place] (test code = Specific [place]) 1.020 Ketone (test code = Ketone) neg Bilirubin (test code = Bilirubin) neg Glucose (test code = Glucose) neg [facility] ProgramUrinalysis macro (dipstick) panel - [id number] 14:16:00* Test Item Value Reference Range Interpretation Comme nts Leukocytes (test code = Leukocytes) large Nitrite (test code = Nitrite) postive Urobilinogen (test code = Urobilinogen) 0.2 Protein (test code = Protein) neg pH (test code = pH) 6.0 Blood (test code = Blood) large Specific [place] (test code = Specific [place]) 1.020 Ketone (test code = Ketone) neg Bilirubin (test code = Bilirubin) neg Glucose (test code = Glucose) neg [facility]Ur[facility] (dipstick) panel - [id number] 14:08:52* Test Item Value Reference Range Interpretation Comme nts Leukocytes (test code = Leukocytes) Trace Nitrite (test code = Nitrite) negative Urobilinogen (test code = Urobilinogen) .2 Protein (test code = Protein) Negative pH (test code = pH) 6.0 Blood (test code = Blood) Negative Specific [place] (test code = Specific [place]) 1.020 Ketone (test code = Ketone) Negative Bilirubin (test code = Bilirubin) Negative Glucose (test code = Glucose) Negative Appearance (test code = Appearance) Clear Color (test code = Color) Yellow [facility] W Auto Differential panel - [id number] 16:13:00 * Test Item Value Reference Range Interpretation Comme nts white blood count (test code = white blood count) 7.5 K/uL 4.0-11.5 red blood count (test code = red blood count) 4.63 M/uL 3.80-5.20 hemoglobin (test code = hemoglobin) 13.3 g/dL 10.5-15.7 hematocrit (test code = hematocrit) 41.1 % 34.0-50.0 mean corpuscular volume (linda t code = mean corpuscular volume) 88.8 fL 86.0-100.0 mean corpuscular hemoglobin (test code = mean corpuscular hemoglobin) 28.7 pg 26.2-33.4 mean corpuscular HGB conc (t est code = mean corpuscular HGB conc) 32.4 g/dL 30.0-34.0 red cell distribution width (test code = red cell distribution width) 13.4 % 12.0-15.5 platelet count (test code = platelet count) 311 K/uL 165-450 mean platelet volume (test c ode = mean platelet volume) 8.7 fL 9.4-12.6 L neutrophils % (test code = neutrophils %) 45.7 % 44.4-80.1 Ig% (test code = Ig%) 0.4 % 0.0-0.4 lymphocyte% (test code = lymphocyte%) 44.7 % 10.0-50.0 mono % (test code = mono %) 7.0 % 3.6-12.0 eos % (test code = eos %) 1.3 % 0.0-5.4 basophil % (test code = baso reynaldo %) 0.9 % 0.1-1.2 absolute neutrophil count (t est code = absolute neutrophil count) 3.44 K/uL 1.56-6.13 Ig# (test code = Ig#) 0.03 K/uL 0.00-0.03 lymph # (test code = lymph #) 3.37 K/uL 1.18-3.74 mono # (test code = mono #) 0.53 K/uL 0.24-0.86 eos # (test code = eos #) 0.10 K/uL 0.04-0.36 basophil # (test code = baso reynaldo #) 0.07 K/uL 0.01-0.08 NRBC% (test code = NRBC%) 0 /100 WBC 0-0.2 NRBC# (test code = NRBC#) 0 K/uL [facility] GroupUrinalysis macro (dipstick) panel - [id number] 15:03:00* Test Item Value Reference Range Interpretation Comme nts Leukocytes (test code = Leukocytes) Trace Nitrite (test code = Nitrite) negative Urobilinogen (test code = Urobilinogen) .2 Protein (test code = Protein) Negative pH (test code = pH) 5.5 Blood (test code = Blood) Non-Hemolyzed: Trace Specific [place] (test code = Specific [place]) 1.010 Ketone (test code = Ketone) Negative Bilirubin (test code = Bilirubin) Negative Glucose (test code = Glucose) Negative Appearance (test code = Appearance) Clear Color (test code = Color) Yellow [facility] Grouppregnancy test, [id number] 15:00:00* Test Item Value Reference Range Interpretation Comme nts Test (test code = Test) negative [facility]+Neisseria gonorrhoeae DNA [Presence] in Cervix by JAMIR with probe [id number] 19:09:00* Test Item Value Reference Range Interpretation Comme nts CT (test code = CT) CT not detected NG (test code = NG) NG not detected [facility] Groupchl/[id number] 19:09:00* Test Item Value Reference Range Interpretation Comme nts CT (test code = CT) CT not detected NG (test code = NG) NG not detected [facility] GroupChlamydia trachomatis+Neisseria gonorrhoeae DNA [Presence] in Cervix by JAMIR with probe [id number] 19:09:00* Test Item Value Reference Range Interpretation Comme nts CT (test code = CT) CT not detected NG (test code = NG) NG not detected [facility]/[id number] 19:09:00* Test Item Value Reference Range Interpretation Comme nts CT (test code = CT) CT not detected NG (test code = NG) NG not detected [facility] GroupMicroscopic observation [Identifier] in Vaginal fluid by Wet [id number] 15:03:42* Test Item Value Reference Range Interpretation Comme nts Clue Cells (test code = Clue Cells) positive WBCs (test code = WBCs) negative Trichomonads (test code = Trichomonads) negative Epithelial cells (test code = Epithelial cells) abnormal RBCs (test code = RBCs) negative [facility] GroupMicroscopic observation [Identifier] in Vaginal fluid by Wet [id number] 15:03:42* Test Item Value Reference Range Interpretation Comme nts Clue Cells (test code = Clue Cells) positive WBCs (test code = WBCs) negative Trichomonads (test code = Trichomonads) negative Epithelial cells (test code = Epithelial cells) abnormal RBCs (test code = RBCs) negative [facility] GroupMicroscopic observation [Identifier] in Vaginal fluid by Wet [id number] 15:03:42* Test Item Value Reference Range Interpretation Comme nts Clue Cells (test code = Clue Cells) positive WBCs (test code = WBCs) negative Trichomonads (test code = Trichomonads) negative Epithelial cells (test code = Epithelial cells) abnormal RBCs (test code = RBCs) negative [facility] GroupMicroscopic observation [Identifier] in Vaginal fluid by Wet [id number] 15:03:42* Test Item Value Reference Range Interpretation Comme nts Clue Cells (test code = Clue Cells) positive WBCs (test code = WBCs) negative Trichomonads (test code = Trichomonads) negative Epithelial cells (test code = Epithelial cells) abnormal RBCs (test code = RBCs) negative [facility], [id number] 14:32:13* Test Item Value Reference Range Interpretation Comme nts Test (test code = Test) negative [facility] test, [id number] 14:32:13* Test Item Value Reference Range Interpretation Comme nts Test (test code = Test) negative [facility], [id number] 14:32:13* Test Item Value Reference Range Interpretation Comme nts Test (test code = Test) negative [facility], [id number] 14:32:13* Test Item Value Reference Range Interpretation Comme nts Test (test code = Test) negative [facility] GroupUrinalysis macro (dipstick) panel - [id number] 14:31:57* Test Item Value Reference Range Interpretation Comme nts Leukocytes (test code = Leukocytes) Small Nitrite (test code = Nitrite) negative Urobilinogen (test code = Urobilinogen) .2 Protein (test code = Protein) Negative pH (test code = pH) 6.0 Blood (test code = Blood) Negative Specific [place] (test code = Specific [place]) 1.010 Ketone (test code = Ketone) Negative Bilirubin (test code = Bilirubin) Negative Glucose (test code = Glucose) Negative Appearance (test code = Appearance) Clear Color (test code = Color) Yellow [facility] GroupUrinalysis macro (dipstick) panel - [id number] 14:31:57* Test Item Value Reference Range Interpretation Comme nts Leukocytes (test code = Leukocytes) Small Nitrite (test code = Nitrite) negative Urobilinogen (test code = Urobilinogen) .2 Protein (test code = Protein) Negative pH (test code = pH) 6.0 Blood (test code = Blood) Negative Specific [place] (test code = Specific [place]) 1.010 Ketone (test code = Ketone) Negative Bilirubin (test code = Bilirubin) Negative Glucose (test code = Glucose) Negative Appearance (test code = Appearance) Clear Color (test code = Color) Yellow [facility] HospitalUr[facility] (dipstick) panel - [id number] 14:31:57* Test Item Value Reference Range Interpretation Comme nts Leukocytes (test code = Leukocytes) Small Nitrite (test code = Nitrite) negative Urobilinogen (test code = Urobilinogen) .2 Protein (test code = Protein) Negative pH (test code = pH) 6.0 Blood (test code = Blood) Negative Specific [place] (test code = Specific [place]) 1.010 Ketone (test code = Ketone) Negative Bilirubin (test code = Bilirubin) Negative Glucose (test code = Glucose) Negative Appearance (test code = Appearance) Clear Color (test code = Color) Yellow [facility] HospitalUrinalysis macro (dipstick) panel - [id number] 14:31:57* Test Item Value Reference Range Interpretation Comme nts Leukocytes (test code = Leukocytes) Small Nitrite (test code = Nitrite) negative Urobilinogen (test code = Urobilinogen) .2 Protein (test code = Protein) Negative pH (test code = pH) 6.0 Blood (test code = Blood) Negative Specific [place] (test code = Specific [place]) 1.010 Ketone (test code = Ketone) Negative Bilirubin (test code = Bilirubin) Negative Glucose (test code = Glucose) Negative Appearance (test code = Appearance) Clear Color (test code = Color) Yellow [facility] HospitalUr[facility]ysis [facility] (dipstick) panel - [id number] 14:39:27* Test Item Value Reference Range Interpretation Comme nts Leukocytes (test code = Leukocytes) Negative Nitrite (test code = Nitrite) negative Urobilinogen (test code = Urobilinogen) .2 Protein (test code = Protein) Negative pH (test code = pH) 6.0 Blood (test code = Blood) Negative Specific [place] (test code = Specific [place]) 1.015 Ketone (test code = Ketone) Negative Bilirubin (test code = Bilirubin) Negative Glucose (test code = Glucose) Negative Appearance (test code = Appearance) Slightly Cloudy Color (test code = Color) Yellow [facility] Grouppregnancy test, [id number] 16:48:52* Test Item Value Reference Range Interpretation Comme nts Test (test code = Test) negative [facility] GroupUrinalysis macro (dipstick) panel - [id number] 16:48:38* Test Item Value Reference Range Interpretation Comme nts Leukocytes (test code = Leukocytes) Small Nitrite (test code = Nitrite) negative Urobilinogen (test code = Urobilinogen) .2 Protein (test code = Protein) Negative pH (test code = pH) 7.0 Blood (test code = Blood) Negative Specific [place] (test code = Specific [place]) 1.015 Ketone (test code = Ketone) Negative Bilirubin (test code = Bilirubin) Negative Glucose (test code = Glucose) Negative Appearance (test code = Appearance) Clear Color (test code = Color) Yellow [facility] GroupChoriogonadotropin.beta subunit [Units/volume] in Serum or [id number] 00:00:00* Test Item Value Reference Range Interpretation Comme nts HCG quantitative (test code = HCG quantitative) <0.1 0-5 [facility] GroupMicroscopic observation [Identifier] in Vaginal fluid by Wet [id number] 10:47:58* Test Item Value Reference Range Interpretation Comme nts Clue Cells (test code = Clue Cells) negative WBCs (test code = WBCs) negative Trichomonads (test code = Trichomonads) negative Epithelial cells (test code = Epithelial cells) normal RBCs (test code = RBCs) negative [facility]pp[facility] test, [id number] 08:48:31* Test Item Value Reference Range Interpretation Comme nts Test (test code = Test) negative [facility] GroupUrinalysis macro (dipstick) panel - [id number] 08:48:03* Test Item Value Reference Range Interpretation Comme nts Leukocytes (test code = Leukocytes) Small Nitrite (test code = Nitrite) negative Urobilinogen (test code = Urobilinogen) .2 Protein (test code = Protein) 30 pH (test code = pH) 6.0 Blood (test code = Blood) Moderate Specific [place] (test code = Specific [place]) 1.020 Ketone (test code = Ketone) Negative Bilirubin (test code = Bilirubin) Negative Glucose (test code = Glucose) Negative Appearance (test code = Appearance) Clear Color (test code = Color) Yellow [facility] HospitalCHE[facility] [id number] 15:49:00* Test Item Value Reference Range Interpretation Comme nts BUN (test code = BUN) 7 [facility] [id number] 15:49:00* Test Item Value Reference Range Interpretation Comme nts Creatinine Lvl (test code = Creatinine Lvl) 0.68 0.50-1.10 [facility] [id number] 15:49:00* Test Item Value Reference Range Interpretation Comme nts eGFR NON-AFR. MALAGASY (test code = eGFR NON-AFR. MALAGASY) 124 [facility] [id number] 15:49:00* Test Item Value Reference Range Interpretation Comme nts eGFR (test code = eGFR ) 144 [facility] [id number] 15:49:00* Test Item Value Reference Range Interpretation Comme nts B/C Ratio (test code = B/C Ratio) NOT APPLICABLE 10-05 [facility] [Identifier] in Vaginal fluid by Wet [id number] 09:23:13* Test Item Value Reference Range Interpretation Comme nts Clue Cells (test code = Clue Cells) negative WBCs (test code = WBCs) negative Trichomonads (test code = Trichomonads) negative Epithelial cells (test code = Epithelial cells) normal RBCs (test code = RBCs) negative [facility] GroupMicroscopic observation [Identifier] in Vaginal fluid by Wet [id number] 09:23:13* Test Item Value Reference Range Interpretation Comme nts Clue Cells (test code = Clue Cells) negative WBCs (test code = WBCs) negative Trichomonads (test code = Trichomonads) negative Epithelial cells (test code = Epithelial cells) normal RBCs (test code = RBCs) negative [facility] HospitalUrinalysis [facility] (dipstick) panel - [id number] 08:50:28* Test Item Value Reference Range Interpretation Comme nts Leukocytes (test code = Leukocytes) Negative Nitrite (test code = Nitrite) negative Urobilinogen (test code = Urobilinogen) .2 Protein (test code = Protein) Negative pH (test code = pH) 6.5 Blood (test code = Blood) Negative Specific [place] (test code = Specific [place]) 1.020 Ketone (test code = Ketone) Negative Bilirubin (test code = Bilirubin) Negative Glucose (test code = Glucose) Negative Appearance (test code = Appearance) Clear Color (test code = Color) Yellow [facility] GroupUrinalysis macro (dipstick) panel - [id number] 08:50:28* Test Item Value Reference Range Interpretation Comme nts Leukocytes (test code = Leukocytes) Negative Nitrite (test code = Nitrite) negative Urobilinogen (test code = Urobilinogen) .2 Protein (test code = Protein) Negative pH (test code = pH) 6.5 Blood (test code = Blood) Negative Specific [place] (test code = Specific [place]) 1.020 Ketone (test code = Ketone) Negative Bilirubin (test code = Bilirubin) Negative Glucose (test code = Glucose) Negative Appearance (test code = Appearance) Clear Color (test code = Color) Yellow [facility] Grouppregnancy test, [id number] 08:49:52* Test Item Value Reference Range Interpretation Comme nts Test (test code = Test) negative [facility], [id number] 08:49:52* Test Item Value Reference Range Interpretation Comme nts Test (test code = Test) negative [facility] HospitalCBC W Auto Differential panel - [id number] 08:38:00 * Test Item Value Reference Range Interpretation Comme nts white blood count (test code = white blood count) 6.4 K/uL 4.0-11.5 red blood count (test code = red blood count) 4.61 M/uL 3.80-5.20 hemoglobin (test code = hemoglobin) 13.3 g/dL 10.5-15.7 hematocrit (test code = hematocrit) 41.6 % 34.0-50.0 MCV [Entitic volume] (test c ode = 44696-3) 90.2 fL 86.0-100.0 mean corpuscular hemoglobin (test code = mean corpuscular hemoglobin) 28.9 pg 26.2-33.4 mean corpuscular HGB conc (t est code = mean corpuscular HGB conc) 32.0 g/dL 30.0-34.0 red cell distribution width (test code = red cell distribution width) 13.0 % 12.0-15.5 platelet count (test code = platelet count) 299 K/uL 165-450 mean platelet volume (test c ode = mean platelet volume) 9.3 fL 9.4-12.6 L Segmented neutrophils/100 leukocytes in Blood (test code = 23908-9) 53.7 % 44.4-80.1 Immature granulocytes [#/vol ume] in Blood (test code = 81197-6) 0.02 K/uL 0.00-0.03 lymphocyte% (test code = lymphocyte%) 36.8 % 10.0-50.0 mono % (test code = mono %) 6.8 % 3.6-12.0 eos % (test code = eos %) 1.3 % 0.0-5.4 Basophils/100 leukocytes in Specimen (test code = 85605-7) 1.1 % 0.1-1.2 Band form neutrophils [#/vol ume] in Blood (test code = 62591-2) 3.42 K/uL 1.56-6.13 Lymphocytes [#/volume] in Sp ecimen by Automated count (test code = 02987-9) 2.34 K/uL 1.18-3.74 mono # (test code = mono #) 0.43 K/uL 0.24-0.86 eos # (test code = eos #) 0.08 K/uL 0.04-0.36 basophil # (test code = baso reynaldo #) 0.07 K/uL 0.01-0.08 NRBC% (test code = NRBC%) 0 /100 WBC 0-0.2 NRBC# (test code = NRBC#) 0 K/uL [facility] - [id number] 00:00:00NeutrophilsBandLymphocyteAtypical LymphMonocyteEosinophilBasophilMetamyelocyteMyelocytePromyelocyteBlastsNucleated Red Blood CellAbs Neutrophil Count (Man)Abs Lymph Count (Man)Abs Monocyte Count (Man)Abs Eosinophil Count (Man)Abs Basophil Count (Man)Platelet EstimatePlatelet MorphologyAnisocytosisMicrocytosisMataMem[facility] Urinalysis macro (dipstick) panel - [id number] 10:12:00* Test Item Value Reference Range Interpretation Comme nts Leukocytes (test code = Leukocytes) Negative Nitrite (test code = Nitrite) negative Urobilinogen (test code = Urobilinogen) .2 Protein (test code = Protein) Negative pH (test code = pH) 5.5 Blood (test code = Blood) Hemolyzed: Trace Specific [place] (test code = Specific [place]) 1.025 Ketone (test code = Ketone) Negative Bilirubin (test code = Bilirubin) Negative Glucose (test code = Glucose) Negative Appearance (test code = Appearance) Clear Color (test code = Color) Yellow [facility] [id number] 10:11:00* Test Item Value Reference Range Interpretation Comme nts Test (test code = Test) negative [facility] Differential panel - [id number] 08:46:00 * Test Item Value Reference Range Interpretation Comme nts white blood count (test code = white blood count) 9.4 K/uL 4.0-11.5 red blood count (test code = red blood count) 4.58 M/uL 3.80-5.20 hemoglobin (test code = hemoglobin) 13.5 g/dL 10.5-15.7 hematocrit (test code = hematocrit) 41.9 % 34.0-50.0 MCV [Entitic volume] (test c ode = 97359-4) 91.5 fL 86-100 mean corpuscular hemoglobin (test code = mean corpuscular hemoglobin) 29.5 pg 26.2-33.4 mean corpuscular HGB conc (t est code = mean corpuscular HGB conc) 32.2 g/dL 30-34 red cell distribution width (test code = red cell distribution width) 12.4 % 12.0-15.5 platelet count (test code = platelet count) 288 K/uL 165-450 mean platelet volume (test c ode = mean platelet volume) 9.2 fL 9.4-12.6 L Segmented neutrophils/100 leukocytes in Blood (test code = 46306-7) 57.1 % 44.4-80.1 Immature granulocytes [#/vol ume] in Blood (test code = 06601-6) 0.0 K/uL 0.0-0.03 lymphocyte% (test code = lymphocyte%) 32.6 % 10.0-50.0 mono % (test code = mono %) 8.3 % 3.6-12.0 eos % (test code = eos %) 0.8 % 0.0-5.4 Basophils/100 leukocytes in Unspecified specimen (test code = 94600-7) 0.8 % 0.1-1.2 Band form neutrophils [#/vol ume] in Blood (test code = 81035-3) 5.38 K/uL 1.56-6.13 Lymphocytes [#/volume] in Unspecified specimen by Automated count (test code = 86766-6) 3.1 K/uL 1.18-3.74 mono # (test code = mono #) 0.78 K/uL 0.24-0.86 eos # (test code = eos #) 0.08 K/uL 0.04-0.36 basophil # (test code = baso reynaldo #) 0.08 K/uL 0.01-0.08 NRBC% (test code = NRBC%) 0 /100 WBC 0-0.2 NRBC# (test code = NRBC#) 0 K/uL [facility] method unspecified - [id number] 00:00:00NeutrophilsBandLymphocyteAtypical LymphMonocyteEosinophilBasophilMetamyelocyteMyelocyteBlastsNucleated Red Blood CellDifferential CommentAbs Neutrophil Count (Man)Abs Lymph Count (Man)Abs Monocyte Count (Man)Abs Eosinophil Count (Man)Abs Basophil Count (Man)Platelet EstimatePlatelet MorphologyHypoch romasiaPoikilocytosisAnisocytosisMicrocytosisMacrocytosisSpherocyteSchistocytesO valocytesToxic GranulationBurr CellsAcanthocytesHypersegmented PolysRouleauSmudge CellsMatagoTyler Holmes Memorial HospitalChoriogonadotropin.beta subunit [Units/volume] in Serum or [id number] 06:50:00* Test Item Value Reference Range Interpretation Comme nts HCG quantitative (test code = HCG quantitative) <0.1 0-5 [facility]2020-11-21 04:31:00* Test Item Value Reference Range Interpretation Comme nts Glucose Lvl (test code = Glucose Lvl) 82 70-99 [facility]2020-11-21 04:31:00* Test Item Value Reference Range Interpretation Comme nts BUN (test code = BUN) 11 7-22 [place] 564300-11-21 04:31:00* Test Item Value Reference Range Interpretation Comme nts Creatinine Lvl (test code = Creatinine Lvl) 0.73 0.50-1.40 [facility]2020-11-21 04:31:00* Test Item Value Reference Range Interpretation Comme nts Sodium Lvl (test code = Sodium Lvl) 139 135-145 [facility]2020-11-21 04:31:00* Test Item Value Reference Range Interpretation Comme nts Potassium Lvl (test code = P otassium Lvl) 3.9 3.5-5.1 [facility]2020-11-21 04:31:00* Test Item Value Reference Range Interpretation Comme nts Chloride Lvl (test code = Chloride Lvl) 109 95-109 [facility]2020-11-21 04:31:00* Test Item Value Reference Range Interpretation Comme nts CO2 (test code = CO2) 26 24-32 [facility]2020-11-21 04:31:00* Test Item Value Reference Range Interpretation Comme nts Calcium Lvl (test code = Calcium Lvl) 9.0 8.5-10.5 [facility]2020-11-21 04:31:00* Test Item Value Reference Range Interpretation Comme nts Total Protein (test code = T otal Protein) 6.7 6.4-8.4 [facility]2020-11-21 04:31:00* Test Item Value Reference Range Interpretation Comme nts Albumin Lvl (test code = Albumin Lvl) 3.9 3.5-5.0 [facility]2020-11-21 04:31:00* Test Item Value Reference Range Interpretation Comme nts ALT (test code = ALT) 17 See_Comment [A utomated message] The system which generated this result transmitted reference range: <=65. The reference range was not used to interpret this result as normal/abnormal. [facility]2020-11-21 04:31:00* Test Item Value Reference Range Interpretation Comme nts AST (test code = AST) 12 See_Comment [A utomated message] The system which generated this result transmitted reference range: <=37. The reference range was not used to interpret this result as normal/abnormal. [place] 564300-11-21 04:31:00* Test Item Value Reference Range Interpretation Comme nts Alk Phos (test code = Alk Phos) 60 39-136 [place] 564300-11-21 04:31:00* Test Item Value Reference Range Interpretation Comme nts Bili Total (test code = Bili Total) 0.2 0.2-1.3 [facility]2020-11-21 04:31:00* Test Item Value Reference Range Interpretation Comme nts AGAP (test code = AGAP) 7.9 10.0-20.0 [facility]2020-11-21 04:31:00* Test Item Value Reference Range Interpretation Comme nts B/C Ratio (test code = B/C Ratio) 15 1 6-25 [place] [address]-11-21 04:31:00* Test Item Value Reference Range Interpretation Comme nts Globulin (test code = Globulin) 2.8 2.7-4.2 [facility]2020-11-21 04:31:00* Test Item Value Reference Range Interpretation Comme nts A/G Ratio (test code = A/G Ratio) 1.4 1 0.7-1.6 [place] 564300-11-21 04:31:00* Test Item Value Reference Range Interpretation Comme nts eGFR (test code = eGFR) 119 [facility]MstshbpEHDLTYMGYJBAB3102-67-83 04:31:00* Test Item Value Reference Range Interpretation Comme nts S Preg (test code = S Preg) Negative *NA*(03/05/20 10:31 PM) [facility]gxfaadRFPUZLKXMO5035[facility]40-81 04:31:00* Test Item Value Reference Range Interpretation Comme nts WBC (test code = WBC) 7.6 3.7-10.4 [facility]YxgwateZOXLRIFAIT5840-49-18 04:31:00* Test Item Value Reference Range Interpretation Comme nts RBC (test code = RBC) 4.38 4.20-5.40 [facility]XrdxfsrQBANTKLKRE3947-22-15 04:31:00* Test Item Value Reference Range Interpretation Comme nts Hgb (test code = Hgb) 13.6 12.0-16.0 [facility] HendersonZukxceqXWRGLVSRCH6899-21-27 04:31:00* Test Item Value Reference Range Interpretation Comme nts Hct (test code = Hct) 39.9 36.0-48.0 [facility] HendersonIeuieqwFPGMGGLJSL2856-05-95 04:31:00* Test Item Value Reference Range Interpretation Comme nts MCV (test code = MCV) 91.1 80.0-98.0 [facility]YebvdkhMRIMMVPKDA4499-11-11 04:31:00* Test Item Value Reference Range Interpretation Comme nts MCH (test code = MCH) 31.1 pg 27.0-31.0 [facility] HendersonTigwzggCYPAMPLYGT5459-08-96 04:31:00* Test Item Value Reference Range Interpretation Comme nts MCHC (test code = MCHC) 34.1 32.0-36.0 [facility] HendersonPdaqhdzWRYSNMOHKT7089-43-03 04:31:00* Test Item Value Reference Range Interpretation Comme nts RDW (test code = RDW) 13.2 11.5-14.5 [facility] HendersonCpufkheSEPEQRAYFJ9035-03-10 04:31:00* Test Item Value Reference Range Interpretation Comme nts Platelet (test code = Platelet) 245 133-450 [facility]MnoiphjJCBVZVKCRN6232-13-90 04:31:00* Test Item Value Reference Range Interpretation Comme nts MPV (test code = MPV) 7.2 7.4-10.4 [facility] HendersonVphlxjbYQJSVAXQEJ7949-86-40 04:31:00* Test Item Value Reference Range Interpretation Comme nts Segs (test code = Segs) 40.6 45.0-75.0 [facility] HendersonRtqlwstTZHJVFJOYR8137-41-93 04:31:00* Test Item Value Reference Range Interpretation Comme nts Lymphocytes (test code = Lymphocytes) 47.5 20.0-40.0 [facility] HendersonAlmogfiZSKDELDAKP8827-86-47 04:31:00* Test Item Value Reference Range Interpretation Comme nts Monocytes (test code = Monocytes) 9.2 2.0-12.0 [facility] HendersonRcjdecqHWDEHKFZGU1461-59-70 04:31:00* Test Item Value Reference Range Interpretation Comme nts Eosinophils (test code = Eosinophils) 1.9 See_Comment [Automated messa ge] The system which generated this result transmitted reference range: <=4.0. The reference range was not used to interpret this result as normal/abnormal. [facility] HendersonDdutsenAFNTOKJDMC4655-99-93 04:31:00* Test Item Value Reference Range Interpretation Comme nts Basophils (test code = Basophils) 0.8 See_Comment [Automated messa ge] The system which generated this result transmitted reference range: <=1.0. The reference range was not used to interpret this result as normal/abnormal. [facility] HendersonGaqbxtzKYYDIVWRHL9849-29-21 04:31:00* Test Item Value Reference Range Interpretation Comme nts Neutrophils # (test code = N eutrophils #) 3.1 1.5-8.1 [facility]XtkdsjgQZAYLYFRGR8390-08-19 04:31:00* Test Item Value Reference Range Interpretation Comme nts Lymphocytes # (test code = L ymphocytes #) 3.6 1.0-5.5 [facility] HendersonUbebaqtKSHRIUTMQZ3515-15-00 04:31:00* Test Item Value Reference Range Interpretation Comme nts Monocytes # (test code = Monocytes #) 0.7 See_Comment [Automated messa ge] The system which generated this result transmitted reference range: <=0.8. The reference range was not used to interpret this result as normal/abnormal. [facility] HendersonCvlqvpdWMWMUUBYUV7625-23-98 04:31:00* Test Item Value Reference Range Interpretation Comme nts Eosinophils # (test code = Eosinophils #) 0.1 See_Comment [Automated mess age] The system which generated this result transmitted reference range: <=0.5. The reference range was not used to interpret this result as normal/abnormal. [facility] HendersonYgrneonZOQSNXVGHR8709-96-29 04:31:00* Test Item Value Reference Range Interpretation Comme nts Basophils # (test code = Basophils #) 0.1 See_Comment [Automated messa ge] The system which generated this result transmitted reference range: <=0.2. The reference range was not used to interpret this result as normal/abnormal. [facility]2020-11-19 18:47:00* Test Item Value Reference Range Interpretation Comme nts BUN (test code = BUN) 10 7-25 [facility] EAGMT8513[facility]78-60 18:47:00* Test Item Value Reference Range Interpretation Comme nts Creatinine Lvl (test code = Creatinine Lvl) 0.76 0.50-1.10 [facility]2020-11-19 18:47:00* Test Item Value Reference Range Interpretation Comme nts eGFR NON-AFR. MALAGASY (test code = eGFR NON-AFR. MALAGASY) 113 [facility]2020-11-19 18:47:00* Test Item Value Reference Range Interpretation Comme nts eGFR (test code = eGFR ) 131 [facility] OAWXH7400-74-40 18:47:00* Test Item Value Reference Range Interpretation Comme nts B/C Ratio (test code = B/C Ratio) NOT APPLICABLE 6- [facility]jrjitgZAEYSGOYTOFV0322-79-99 18:47:00* Test Item Value Reference Range Interpretation Comme nts Sodium Lvl (test code = Sodium Lvl) 141 135-146 [facility] HospitalLdvflgvAVYFRZHPPURE3329-45-82 18:47:00* Test Item Value Reference Range Interpretation Comme nts Potassium Lvl (test code = P otassium Lvl) 4.4 3.5-5.3 [facility] HospitalObiwbjeDCGPQVNBANRQ5986-04-74 18:47:00* Test Item Value Reference Range Interpretation Comme nts Chloride Lvl (test code = Chloride Lvl) 107 98-110 [facility] HospitalZdsktqvSYPNJXJTGAQB9431-80-00 18:47:00* Test Item Value Reference Range Interpretation Comme nts CO2 (test code = CO2) 27 20-32 [facility]HmwomrgRFSCCPOFZV8312-88-84 18:47:00* Test Item Value Reference Range Interpretation Comme nts WBC X 10x3 (test code = WBC X 10x3) 7.6 3.8-10.8 [facility]ZmthgfbBSPAPYRLML7384-84-30 18:47:00* Test Item Value Reference Range Interpretation Comme nts RBC X 10x6 (test code = RBC X 10x6) 4.64 3.80-5.10 [facility]OnjimteKJFIWDTIYE8279-38-61 18:47:00* Test Item Value Reference Range Interpretation Comme nts Hgb (test code = Hgb) 14.1 11.7-15.5 [facility] HendersonGrofjxuJRZZXTCFKK8942-65-16 18:47:00* Test Item Value Reference Range Interpretation Comme nts Hct (test code = Hct) 42.3 35.0-45.0 [facility] HendersonLmbynivRASRGISEBK5892-18-49 18:47:00* Test Item Value Reference Range Interpretation Comme nts MCV (test code = MCV) 91.2 80.0-100.0 [facility] HendersonJhefclbPHUHIQZEGV2135-86-90 18:47:00* Test Item Value Reference Range Interpretation Comme nts MCH (test code = MCH) 30.4 pg 27.0-33.0 [facility] HendersonNhksqzxKWMBRMACMR2269-68-45 18:47:00* Test Item Value Reference Range Interpretation Comme nts MCHC (test code = MCHC) 33.3 32.0-36.0 [facility] HendersonGuhihozUSNCEBBOJB4233-73-28 18:47:00* Test Item Value Reference Range Interpretation Comme nts RDW (test code = RDW) 12.6 11.0-15.0 [facility] HendersonLbmbtwgPNNIQGRRSC5972-10-56 18:47:00* Test Item Value Reference Range Interpretation Comme nts Platelet (test code = Platelet) 260 140-400 [facility] HendersonAlaydycIMVNYJCWRC3728-66-34 18:47:00* Test Item Value Reference Range Interpretation Comme nts MPV (test code = MPV) 9.2 7.5-12.5 [facility] HendersonMkmogpsTXMRJSQZTP6538-49-46 18:47:00* Test Item Value Reference Range Interpretation Comme nts Neutrophils # (test code = N eutrophils #) 4104 2330-2139 [facility] HendersonSuhsdziEHEIPYLUYE3946-47-47 18:47:00* Test Item Value Reference Range Interpretation Comme nts Lymphocytes # (test code = L ymphocytes #) 2800 850-3900 [facility]EipywhnFOXZMLOQYK6285-52-59 18:47:00* Test Item Value Reference Range Interpretation Comme nts Monocytes # (test code = Monocytes #) 547 200-950 [facility] HendersonWttukxkCERSQMFVJT8002-28-52 18:47:00* Test Item Value Reference Range Interpretation Comme nts Eosinophils # (test code = E osinophils #) 91 15-500 [facility] HendersonDelgarcTPFXMWTYHY1238-84-19 18:47:00* Test Item Value Reference Range Interpretation Comme nts Basophils # (test code = Basophils #) 53 See_Comment [Automated messa ge] The system which generated this result transmitted reference range: <=200. The reference range was not used to interpret this result as normal/abnormal. [facility] HendersonJsegdkbDQOLHYJCZI2250-70-57 18:47:00* Test Item Value Reference Range Interpretation Comme nts Segs (test code = Segs) 54 [facility] HendersonTtfedhaPHMCQTXBSM2690-42-77 18:47:00* Test Item Value Reference Range Interpretation Comme nts Lymphocytes (test code = Lymphocytes) 36.9 [facility]YdugebhEYVILDBCKK2512-17-55 18:47:00* Test Item Value Reference Range Interpretation Comme nts Monocytes (test code = Monocytes) 7.2 [facility] HendersonEowhwaxEDFSUBMKOK8186-50-74 18:47:00* Test Item Value Reference Range Interpretation Comme nts Eosinophils (test code = Eosinophils) 1.2 [facility] HendersonDdtzllxIUMQMJKDTV4748-55-65 18:47:00* Test Item Value Reference Range Interpretation Comme nts Basophils (test code = Basophils) 0.7 [facility] AND [id number] 20:06:00* Test Item Value Reference Range Interpretation Comme nts UA Color (test code = UA Color) Yellow *NA*(06/12/18 2:06 PM) [facility] AND FMGJS0904-13-51 20:06:00* Test Item Value Reference Range Interpretation Comme nts UA Blood (test code = UA Blood) Negative (06/12/18 2:06 PM) [facility] AND [id number] 20:06:00* Test Item Value Reference Range Interpretation Comme nts UA Urobilinogen (test code = UA Urobilinogen) 0.2 0.1-1.0 [facility] AND [id number] 20:06:00* Test Item Value Reference Range Interpretation Comme nts UA Nitrite (test code = UA Nitrite) Negative (06/12/18 2:06 PM) [facility] AND [id number] 20:06:00* Test Item Value Reference Range Interpretation Comme nts UA Protein (test code = UA Protein) Trace *ABN*(06/12/18 2:06 PM) [facility] AND [id number] 20:06:00* Test Item Value Reference Range Interpretation Comme nts UA Turbidity (test code = UA Turbidity) Slight Cloudy (06/12/18 2:06 PM) [facility] AND [id number] 20:06:00* Test Item Value Reference Range Interpretation Comme nts UA Spec Grav (test code = UA Spec Grav) >=1.030 *ABN*(06/12/18 2:06 PM) [facility] AND [id number] 20:06:00* Test Item Value Reference Range Interpretation Comme nts UA pH (test code = UA pH) 6.0 1 5.0-8.0 [facility] AND [id number] 20:06:00* Test Item Value Reference Range Interpretation Comme nts UA Leuk Est (test code = UA Leuk Est) Negative (06/12/18 2:06 PM) [facility] AND [id number] 20:06:00* Test Item Value Reference Range Interpretation Comme nts UA Glucose (test code = UA Glucose) Negative (06/12/18 2:06 PM) [facility] AND [id number] 20:06:00* Test Item Value Reference Range Interpretation Comme nts UA Ketones (test code = UA Ketones) Negative *NA*(06/12/18 2:06 PM) [facility] AND [id number] 20:06:00* Test Item Value Reference Range Interpretation Comme nts UA Bili (test code = UA Bili) Negative *NA*(06/12/18 2:06 PM) [facility] AND [id number] 20:06:00* Test Item Value Reference Range Interpretation Comme nts UA Bacteria (test code = UA Bacteria) Moderate /HPF [facility] AND [id number] 20:06:00* Test Item Value Reference Range Interpretation Comme nts UA RBC (test code = UA RBC) 0-2 /HPF See_Comment [Automated messa ge] The system which generated this result transmitted reference range: <=2. The reference range was not used to interpret this result as normal/abnormal. [facility] AND [id number] 20:06:00* Test Item Value Reference Range Interpretation Comme nts UA WBC (test code = UA WBC) 3-5 /HPF [facility] AND [id number] 20:06:00* Test Item Value Reference Range Interpretation Comme nts UA CaOx Juliana (test code = UA CaOx Juliana) Few /HPF [facility] AND [id number] 20:06:00* Test Item Value Reference Range Interpretation Comme nts UA Sq Epi (test code = UA Sq Epi) Rare /LPF [facility]2019-02-27 10:28:00* Test Item Value Reference Range Interpretation Comme nts eGFR (test code = eGFR) 144 [facility]2019-02-27 10:28:00* Test Item Value Reference Range Interpretation Comme nts Creatinine Lvl (test code = Creatinine Lvl) 0.48 0.50-1.40 [facility]2019-02-27 10:28:00* Test Item Value Reference Range Interpretation Comme nts BUN (test code = BUN) 8 7-22 [facility]2019-02-27 10:28:00* Test Item Value Reference Range Interpretation Comme nts Potassium Lvl (test code = P otassium Lvl) 3.3 3.5-5.1 [facility]2019-02-27 10:28:00* Test Item Value Reference Range Interpretation Comme nts Alk Phos (test code = Alk Phos) 67 39-136 [facility]2019-02-27 10:28:00* Test Item Value Reference Range Interpretation Comme nts Glucose Lvl (test code = Glucose Lvl) 96 70-99 [facility]2019-02-27 10:28:00* Test Item Value Reference Range Interpretation Comme nts Albumin Lvl (test code = Albumin Lvl) 3.4 3.5-5.0 [facility]2019-02-27 10:28:00* Test Item Value Reference Range Interpretation Comme nts Sodium Lvl (test code = Sodium Lvl) 141 135-145 [facility]2019-02-27 10:28:00* Test Item Value Reference Range Interpretation Comme nts Chloride Lvl (test code = Chloride Lvl) 107 95-109 [facility]2019-02-27 10:28:00* Test Item Value Reference Range Interpretation Comme nts ALT (test code = ALT) 27 See_Comment [A utomated message] The system which generated this result transmitted reference range: <=65. The reference range was not used to interpret this result as normal/abnormal. [facility]2019-02-27 10:28:00* Test Item Value Reference Range Interpretation Comme nts CO2 (test code = CO2) 22 24-32 [facility]2019-02-27 10:28:00* Test Item Value Reference Range Interpretation Comme nts Calcium Lvl (test code = Calcium Lvl) 8.4 8.5-10.5 [facility]2019-02-27 10:28:00* Test Item Value Reference Range Interpretation Comme nts Bili Total (test code = Bili Total) 0.1 0.2-1.3 [facility]2019-02-27 10:28:00* Test Item Value Reference Range Interpretation Comme nts AST (test code = AST) 14 See_Comment [A utomated message] The system which generated this result transmitted reference range: <=37. The reference range was not used to interpret this result as normal/abnormal. [facility]2019-02-27 10:28:00* Test Item Value Reference Range Interpretation Comme nts Total Protein (test code = T otal Protein) 6.3 6.4-8.4 [facility]2019-02-27 10:28:00* Test Item Value Reference Range Interpretation Comme nts AGAP (test code = AGAP) 15.3 10.0-20.0 [facility]2019-02-27 10:28:00* Test Item Value Reference Range Interpretation Comme nts Globulin (test code = Globulin) 2.9 2.7-4.2 [facility]2019-02-27 10:28:00* Test Item Value Reference Range Interpretation Comme nts B/C Ratio (test code = B/C Ratio) 17 1 6-25 [facility]2019-02-27 10:28:00* Test Item Value Reference Range Interpretation Comme nts A/G Ratio (test code = A/G Ratio) 1.2 1 0.7-1.6 [facility]fxeuxpJJWRZNMLSQ6740-33-91 10:28:00* Test Item Value Reference Range Interpretation Comme nts MPV (test code = MPV) 7.4 7.4-10.4 [facility]IdrlmncIPDRMFFMGO9408-17-69 10:28:00* Test Item Value Reference Range Interpretation Comme nts Platelet (test code = Platelet) 275 133-450 [facility]KekifxuRCRQZOVLTW6529-19-78 10:28:00* Test Item Value Reference Range Interpretation Comme nts Hct (test code = Hct) 36.7 36.0-48.0 [facility]qneSBEHXIRJFI0005-88-62 10:28:00* Test Item Value Reference Range Interpretation Comme nts MCH (test code = MCH) 31.7 pg 27.0-31.0 [facility]YwphsnkDPNVHPRBIY0057-63-28 10:28:00* Test Item Value Reference Range Interpretation Comme nts MCV (test code = MCV) 93.4 80.0-98.0 [facility] HendersonWaazunvWEGYOFYJQG1356-39-99 10:28:00* Test Item Value Reference Range Interpretation Comme nts WBC (test code = WBC) 6.2 3.7-10.4 [facility]DzeawpdPFFDVYIZMC3584-54-19 10:28:00* Test Item Value Reference Range Interpretation Comme nts RBC (test code = RBC) 3.93 4.20-5.40 [facility]KeshuegCTFFGCEWYI9175-74-18 10:28:00* Test Item Value Reference Range Interpretation Comme nts Hgb (test code = Hgb) 12.4 12.0-16.0 [facility] HendersonWxaetfyBQRNEOCBXU3825-77-92 10:28:00* Test Item Value Reference Range Interpretation Comme nts MCHC (test code = MCHC) 33.9 32.0-36.0 [facility]PawrjnaNRYXUBDJMH9753-07-07 10:28:00* Test Item Value Reference Range Interpretation Comme nts RDW (test code = RDW) 15.6 11.5-14.5 [facility] HendersonZgbxgmnADWMKNQVKP6026-62-42 10:28:00* Test Item Value Reference Range Interpretation Comme nts Eosinophils # (test code = Eosinophils #) 0.2 See_Comment [Automated mess age] The system which generated this result transmitted reference range: <=0.5. The reference range was not used to interpret this result as normal/abnormal. [facility]UndptdzKJFDITLNJL5875-43-16 10:28:00* Test Item Value Reference Range Interpretation Comme nts Monocytes (test code = Monocytes) 7.4 2.0-12.0 [facility] HendersonMkninlbFFWYKEZNLJ7841-92-55 10:28:00* Test Item Value Reference Range Interpretation Comme nts Segs (test code = Segs) 41.7 45.0-75.0 [facility]AgcgvtfEWQXFIBNPC2354-07-52 10:28:00* Test Item Value Reference Range Interpretation Comme nts Lymphocytes (test code = Lymphocytes) 47.2 20.0-40.0 [facility] HendersonReomsvlVPIKPNSTII4740-42-99 10:28:00* Test Item Value Reference Range Interpretation Comme nts Eosinophils (test code = Eosinophils) 3.0 See_Comment [Automated [employer]] The system which generated this result transmitted reference range: <=4.0. The reference range was not used to interpret this result as normal/abnormal. [facility] HendersonRgzduznZIKKVODDOG8008-82-19 10:28:00* Test Item Value Reference Range Interpretation Comme nts Basophils (test code = Basophils) 0.7 See_Comment [Automated [employer] ge] The system which generated this result transmitted reference range: <=1.0. The reference range was not used to interpret this result as normal/abnormal. [facility]JtwsckkFJTUKTQXRC9991-47-23 10:28:00* Test Item Value Reference Range Interpretation Comme nts Neutrophils # (test code = N eutrophils #) 2.6 1.5-8.1 [facility]HzbacywUHMNSNMCTJ4135-00-21 10:28:00* Test Item Value Reference Range Interpretation Comme nts Monocytes # (test code = Monocytes #) 0.5 See_Comment [Automated [employer]] The system which generated this result transmitted reference range: <=0.8. The reference range was not used to interpret this result as normal/abnormal. [facility]NrqnmdjUYODSEHUGM1807-08-84 10:28:00* Test Item Value Reference Range Interpretation Comme nts Lymphocytes # (test code = L ymphocytes #) 2.9 1.0-5.5 [facility]2019-02-20 10:48:00* Test Item Value Reference Range Interpretation Comme nts eGFR (test code = eGFR) 164 [facility]2019-02-20 10:48:00* Test Item Value Reference Range Interpretation Comme nts Sodium Lvl (test code = Sodium Lvl) 137 135-145 [facility]2019-02-20 10:48:00* Test Item Value Reference Range Interpretation Comme nts Potassium Lvl (test code = P otassium Lvl) 3.8 3.5-5.1 [facility]2019-02-20 10:48:00* Test Item Value Reference Range Interpretation Comme nts Chloride Lvl (test code = Chloride Lvl) 105 95-109 [facility]2019-02-20 10:48:00* Test Item Value Reference Range Interpretation Comme nts Creatinine Lvl (test code = Creatinine Lvl) 0.32 0.50-1.40 [facility]2019-02-20 10:48:00* Test Item Value Reference Range Interpretation Comme nts BUN (test code = BUN) 11 7-22 [facility]2019-02-20 10:48:00* Test Item Value Reference Range Interpretation Comme nts Bili Total (test code = Bili Total) 0.2 0.2-1.3 [facility]2019-02-20 10:48:00* Test Item Value Reference Range Interpretation Comme nts Total Protein (test code = T otal Protein) 6.3 6.4-8.4 [facility]2019-02-20 10:48:00* Test Item Value Reference Range Interpretation Comme nts AST (test code = AST) 14 See_Comment [A utomated message] The system which generated this result transmitted reference range: <=37. The reference range was not used to interpret this result as normal/abnormal. [facility]2019-02-20 10:48:00* Test Item Value Reference Range Interpretation Comme nts Calcium Lvl (test code = Calcium Lvl) 8.8 8.5-10.5 [facility]2019-02-20 10:48:00* Test Item Value Reference Range Interpretation Comme nts CO2 (test code = CO2) 24 24-32 [facility]2019-02-20 10:48:00* Test Item Value Reference Range Interpretation Comme nts Glucose Lvl (test code = Glucose Lvl) 74 70-99 [facility]2019-02-20 10:48:00* Test Item Value Reference Range Interpretation Comme nts Albumin Lvl (test code = Albumin Lvl) 3.4 3.5-5.0 [facility]2019-02-20 10:48:00* Test Item Value Reference Range Interpretation Comme nts Alk Phos (test code = Alk Phos) 66 39-136 [facility]2019-02-20 10:48:00* Test Item Value Reference Range Interpretation Comme nts ALT (test code = ALT) 28 See_Comment [A utomated message] The system which generated this result transmitted reference range: <=65. The reference range was not used to interpret this result as normal/abnormal. [facility]2019-02-20 10:48:00* Test Item Value Reference Range Interpretation Comme nts AGAP (test code = AGAP) 11.8 10.0-20.0 [facility]2019-02-20 10:48:00* Test Item Value Reference Range Interpretation Comme nts Globulin (test code = Globulin) 2.9 2.7-4.2 [facility]2019-02-20 10:48:00* Test Item Value Reference Range Interpretation Comme nts B/C Ratio (test code = B/C Ratio) 34 1 6-25 [facility]2019-02-20 10:48:00* Test Item Value Reference Range Interpretation Comme nts A/G Ratio (test code = A/G Ratio) 1.2 1 0.7-1.6 [facility]EevptiyDJOMBWAGQM7229-33-03 10:48:00* Test Item Value Reference Range Interpretation Comme nts Platelet (test code = Platelet) 324 133-450 [facility]TqbwbvpZLYVGYOHDX0557-53-19 10:48:00* Test Item Value Reference Range Interpretation Comme nts MPV (test code = MPV) 7.3 7.4-10.4 [facility]SrkcpuaZEJYGLGGKZ6706-46-09 10:48:00* Test Item Value Reference Range Interpretation Comme nts Hgb (test code = Hgb) 12.4 12.0-16.0 [facility] HendersonAvgfgrnQQXPKAIFDS6737-72-44 10:48:00* Test Item Value Reference Range Interpretation Comme nts RBC (test code = RBC) 3.90 4.20-5.40 [facility]RjcpmgcIZEQWNYVLW2017-19-59 10:48:00* Test Item Value Reference Range Interpretation Comme nts MCHC (test code = MCHC) 33.8 32.0-36.0 [facility] HendersonZwwimvmVDCLPAOVII6956-73-77 10:48:00* Test Item Value Reference Range Interpretation Comme nts RDW (test code = RDW) 16.0 11.5-14.5 [facility]FbodjrwMPNVWYJKVH4075-35-99 10:48:00* Test Item Value Reference Range Interpretation Comme nts MCH (test code = MCH) 31.9 pg 27.0-31.0 [facility] HendersonAluevpgQZIXDDPLCY1559-14-04 10:48:00* Test Item Value Reference Range Interpretation Comme nts Hct (test code = Hct) 36.8 36.0-48.0 [facility]OxpggemHEIPJMMJZM5805-72-30 10:48:00* Test Item Value Reference Range Interpretation Comme nts MCV (test code = MCV) 94.3 80.0-98.0 [facility] HendersonIcqkjotALERWCFKXJ2460-36-41 10:48:00* Test Item Value Reference Range Interpretation Comme nts WBC (test code = WBC) 6.1 3.7-10.4 [facility] HendersonEssrxxvBSUBACHFRV7203-91-87 10:48:00* Test Item Value Reference Range Interpretation Comme nts Segs (test code = Segs) 33.3 45.0-75.0 [facility] HendersonJmtkjasIBCLGTWEEY9161-91-87 10:48:00* Test Item Value Reference Range Interpretation Comme nts Monocytes (test code = Monocytes) 6.8 2.0-12.0 [facility]NhvcywpEWUECRJDCJ8525-49-91 10:48:00* Test Item Value Reference Range Interpretation Comme nts Lymphocytes (test code = Lymphocytes) 56.1 20.0-40.0 [facility] HendersonTtvbnmmRBBQGCOMHL1428-84-47 10:48:00* Test Item Value Reference Range Interpretation Comme nts Eosinophils (test code = Eosinophils) 2.7 See_Comment [Automated messa ge] The system which generated this result transmitted reference range: <=4.0. The reference range was not used to interpret this result as normal/abnormal. [facility] HendersonZfpiovuFYYBRVOEFT5300-81-80 10:48:00* Test Item Value Reference Range Interpretation Comme nts Basophils (test code = Basophils) 1.1 See_Comment [Automated messa ge] The system which generated this result transmitted reference range: <=1.0. The reference range was not used to interpret this result as normal/abnormal. [facility] HendersonMtbmfclWTRLQSLYUZ7646-17-38 10:48:00* Test Item Value Reference Range Interpretation Comme nts Neutrophils # (test code = N eutrophils #) 2.0 1.5-8.1 [facility] HendersonLycictqZRZWKLCUKH3570-89-77 10:48:00* Test Item Value Reference Range Interpretation Comme nts Lymphocytes # (test code = L ymphocytes #) 3.4 1.0-5.5 [facility] HendersonCboyqlxZELWLYIDNQ2471-12-17 10:48:00* Test Item Value Reference Range Interpretation Comme nts Eosinophils # (test code = Eosinophils #) 0.2 See_Comment [Automated mess age] The system which generated this result transmitted reference range: <=0.5. The reference range was not used to interpret this result as normal/abnormal. [facility] HendersonMhgamvkBTWEYHTOOS0216-83-94 10:48:00* Test Item Value Reference Range Interpretation Comme nts Basophils # (test code = Basophils #) 0.1 See_Comment [Automated messa ge] The system which generated this result transmitted reference range: <=0.2. The reference range was not used to interpret this result as normal/abnormal. [facility] HendersonRgvsskaDVCFDBJXYK8446-99-87 10:48:00* Test Item Value Reference Range Interpretation Comme nts Monocytes # (test code = Monocytes #) 0.4 See_Comment [Automated messa ge] The system which generated this result transmitted reference range: <=0.8. The reference range was not used to interpret this result as normal/abnormal. [facility] 09:31:00* Test Item Value Reference Range Interpretation Comme nts A/G Ratio (test code = A/G Ratio) 1.0 1 0.7-1.6 [facility] SQGJU6834-23-38 09:31:00* Test Item Value Reference Range Interpretation Comme nts Globulin (test code = Globulin) 3.5 2.7-4.2 [facility] CAMMQ4258-68-62 09:31:00* Test Item Value Reference Range Interpretation Comme nts AGAP (test code = AGAP) 13.9 10.0-20.0 [facility]2019-02-13 09:31:00* Test Item Value Reference Range Interpretation Comme nts B/C Ratio (test code = B/C Ratio) 32 1 6-25 [facility]2019-02-13 09:31:00* Test Item Value Reference Range Interpretation Comme nts eGFR (test code = eGFR) 148 [facility]2019-02-13 09:31:00* Test Item Value Reference Range Interpretation Comme nts Bili Total (test code = Bili Total) 0.3 0.2-1.3 [facility]2019-02-13 09:31:00* Test Item Value Reference Range Interpretation Comme nts AST (test code = AST) 23 See_Comment [A utomated message] The system which generated this result transmitted reference range: <=37. The reference range was not used to interpret this result as normal/abnormal. [facility]2019-02-13 09:31:00* Test Item Value Reference Range Interpretation Comme nts Total Protein (test code = T otal Protein) 6.9 6.4-8.4 [facility]2019-02-13 09:31:00* Test Item Value Reference Range Interpretation Comme nts CO2 (test code = CO2) 26 24-32 [facility]2019-02-13 09:31:00* Test Item Value Reference Range Interpretation Comme nts Calcium Lvl (test code = Calcium Lvl) 8.9 8.5-10.5 [facility]2019-02-13 09:31:00* Test Item Value Reference Range Interpretation Comme nts ALT (test code = ALT) 33 See_Comment [A utomated message] The system which generated this result transmitted reference range: <=65. The reference range was not used to interpret this result as normal/abnormal. [facility]2019-02-13 09:31:00* Test Item Value Reference Range Interpretation Comme nts Albumin Lvl (test code = Albumin Lvl) 3.4 3.5-5.0 [facility]2019-02-13 09:31:00* Test Item Value Reference Range Interpretation Comme nts Alk Phos (test code = Alk Phos) 74 39-136 [facility]2019-02-13 09:31:00* Test Item Value Reference Range Interpretation Comme nts Glucose Lvl (test code = Glucose Lvl) 65 70-99 [facility]2019-02-13 09:31:00* Test Item Value Reference Range Interpretation Comme nts BUN (test code = BUN) 14 7-22 [facility]2019-02-13 09:31:00* Test Item Value Reference Range Interpretation Comme nts Sodium Lvl (test code = Sodium Lvl) 136 135-145 [facility]2019-02-13 09:31:00* Test Item Value Reference Range Interpretation Comme nts Creatinine Lvl (test code = Creatinine Lvl) 0.44 0.50-1.40 [facility]2019-02-13 09:31:00* Test Item Value Reference Range Interpretation Comme nts Chloride Lvl (test code = Chloride Lvl) 100 95-109 [facility]2019-02-13 09:31:00* Test Item Value Reference Range Interpretation Comme nts Potassium Lvl (test code = P otassium Lvl) 3.9 3.5-5.1 [facility]EdqdjkcDQEPCVLNLY9494-81-80 09:31:00* Test Item Value Reference Range Interpretation Comme nts MCHC (test code = MCHC) 34.1 32.0-36.0 [facility] HendersonWcovimuOKVHDPZCWF8577-05-56 09:31:00* Test Item Value Reference Range Interpretation Comme nts MCV (test code = MCV) 92.9 80.0-98.0 [facility]YrwzspbPSJCRKQSOG1644-47-12 09:31:00* Test Item Value Reference Range Interpretation Comme nts MCH (test code = MCH) 31.7 pg 27.0-31.0 [facility] HendersonTlxnhexVKZKZGRYIZ5890-01-55 09:31:00* Test Item Value Reference Range Interpretation Comme nts Platelet (test code = Platelet) 328 133-450 [facility]IndtcgzAVZOPFFJHI0594-79-99 09:31:00* Test Item Value Reference Range Interpretation Comme nts RDW (test code = RDW) 16.2 11.5-14.5 [facility]QbqdegsAIBBQYZMWF3933-70-22 09:31:00* Test Item Value Reference Range Interpretation Comme nts WBC (test code = WBC) 6.4 3.7-10.4 [facility] HendersonDlbzgsjDSBADPCYPV7765-41-75 09:31:00* Test Item Value Reference Range Interpretation Comme nts RBC (test code = RBC) 3.65 4.20-5.40 [place] [address]-02-13 09:31:00* Test Item Value Reference Range Interpretation Comme nts Hct (test code = Hct) 34.0 36.0-48.0 [place] 244529-02-13 09:31:00* Test Item Value Reference Range Interpretation Comme nts Hgb (test code = Hgb) 11.6 12.0-16.0 [facility] HendersonLgmpqhjRVJTDTEXIZ7679-98-37 09:31:00* Test Item Value Reference Range Interpretation Comme nts MPV (test code = MPV) 7.3 7.4-10.4 [facility]PcttlvjGVLQNKHBYA6960-16-99 09:31:00* Test Item Value Reference Range Interpretation Comme nts Basophils # (test code = Basophils #) 0.1 See_Comment [Automated messa ge] The system which generated this result transmitted reference range: <=0.2. The reference range was not used to interpret this result as normal/abnormal. [facility] HendersonMtstqukTHDRTKKVGF6928-93-48 09:31:00* Test Item Value Reference Range Interpretation Comme nts Eosinophils # (test code = Eosinophils #) 0.2 See_Comment [Automated mess age] The system which generated this result transmitted reference range: <=0.5. The reference range was not used to interpret this result as normal/abnormal. [facility] HendersonEcnfphhTALMIYEPBR1937-83-88 09:31:00* Test Item Value Reference Range Interpretation Comme nts Monocytes # (test code = Monocytes #) 0.7 See_Comment [Automated messa ge] The system which generated this result transmitted reference range: <=0.8. The reference range was not used to interpret this result as normal/abnormal. [facility]XquvkkbMKLIJHVSSD2220-55-36 09:31:00* Test Item Value Reference Range Interpretation Comme nts Basophils (test code = Basophils) 0.8 See_Comment [Automated messa ge] The system which generated this result transmitted reference range: <=1.0. The reference range was not used to interpret this result as normal/abnormal. [facility] HendersonWdxwvpkRDXHCUQWVH0159-49-53 09:31:00* Test Item Value Reference Range Interpretation Comme nts Lymphocytes # (test code = L ymphocytes #) 3.1 1.0-5.5 [facility] HendersonPtociaxMPHDJDPZSM3081-68-32 09:31:00* Test Item Value Reference Range Interpretation Comme nts Eosinophils (test code = Eosinophils) 3.3 See_Comment [Automated messa ge] The system which generated this result transmitted reference range: <=4.0. The reference range was not used to interpret this result as normal/abnormal. [facility] HendersonDxyyumaHVLXAAAMBV7311-66-24 09:31:00* Test Item Value Reference Range Interpretation Comme nts Neutrophils # (test code = N eutrophils #) 2.3 1.5-8.1 [facility] HendersonNtewploLGQGUAVJFN0721-22-47 09:31:00* Test Item Value Reference Range Interpretation Comme nts Lymphocytes (test code = Lymphocytes) 48.9 20.0-40.0 [facility] HendersonAweyubyOSPKDSWMFS1470-56-64 09:31:00* Test Item Value Reference Range Interpretation Comme nts Segs (test code = Segs) 36.5 45.0-75.0 [facility] HendersonDgoxkdzPSLERLCVBC4830-70-74 09:31:00* Test Item Value Reference Range Interpretation Comme nts Monocytes (test code = Monocytes) 10.5 2.0-12.0 [facility]2019-02-06 11:40:00* Test Item Value Reference Range Interpretation Comme nts Osmolality (test code = Osmolality) 291 280-300 [facility]ZxqoecxTKUEMIQZTB4912-04-25 11:08:00* Test Item Value Reference Range Interpretation Comme nts Basophils # (test code = Basophils #) 0.1 See_Comment [Automated messa ge] The system which generated this result transmitted reference range: <=0.2. The reference range was not used to interpret this result as normal/abnormal. [facility] HendersonAujqzogZDDRNTZQQZ4966-40-34 11:03:00* Test Item Value Reference Range Interpretation Comme nts Plt Morph (test code = Plt Morph) Normal (05/18/18 5:03 AM) [facility]IvkbwwlDGKMZSYKZI5292-76-90 11:03:00* Test Item Value Reference Range Interpretation Comme nts RBC Morph (test code = RBC Morph) Normal (05/18/18 5:03 AM) [facility]MvpycbmETRCFMEHJZ7300-44-34 11:03:00* Test Item Value Reference Range Interpretation Comme nts Prealbumin (test code = Prealbumin) 20.9 18.0-45.0 [facility] HospitalJsrndddJCFDPB6693-48-42 11:03:00* Test Item Value Reference Range Interpretation Comme nts VLDL (test code = VLDL) 16 1 [facility] HospitalImaqzneFJKOFL5815-03-37 11:03:00* Test Item Value Reference Range Interpretation Comme nts LDL (Calculated) (test code = LDL (Calculated)) 77 [facility] HospitalPfvhewsJQEFEL6564-52-36 11:03:00* Test Item Value Reference Range Interpretation Comme nts Trig (test code = Trig) 78 [facility] HospitalAvahegqILMPJO5184-08-55 11:03:00* Test Item Value Reference Range Interpretation Comme nts HDL (test code = HDL) 51 [facility]IsihjhzPWWPBI9720-48-63 11:03:00* Test Item Value Reference Range Interpretation Comme nts Chol (test code = Chol) 144 [facility] HospitalVdxhdocWQVVCS5105-08-96 11:03:00* Test Item Value Reference Range Interpretation Comme nts CHD Risk (test code = CHD Risk) 2.82 1 3.90-5.80 [facility] QZSHAVVDL4145[facility]30-79 11:03:00* Test Item Value Reference Range Interpretation Comme nts Hgb A1C (test code = Hgb A1C) 4.4 [facility] WNBKT1522-07-32 10:02:00* Test Item Value Reference Range Interpretation Comme nts Glucose Lvl (test code = Glucose Lvl) 87 70-99 [facility] FUMXC9368-38-03 10:02:00* Test Item Value Reference Range Interpretation Comme nts BUN (test code = BUN) 15 7-22 [facility] WZJHG9203-05-03 10:02:00* Test Item Value Reference Range Interpretation Comme nts Creatinine Lvl (test code = Creatinine Lvl) 0.30 0.50-1.40 [facility] ADQOJ6177-00-65 10:02:00* Test Item Value Reference Range Interpretation Comme nts Sodium Lvl (test code = Sodium Lvl) 139 135-145 [facility]-15-93 10:02:00* Test Item Value Reference Range Interpretation Comme nts Potassium Lvl (test code = P otassium Lvl) 4.0 3.5-5.1 [facility]2019-02-01 10:02:00* Test Item Value Reference Range Interpretation Comme nts Chloride Lvl (test code = Chloride Lvl) 104 95-109 [facility]2019-02-01 10:02:00* Test Item Value Reference Range Interpretation Comme nts CO2 (test code = CO2) 21 24-32 [facility]2019-02-01 10:02:00* Test Item Value Reference Range Interpretation Comme nts Calcium Lvl (test code = Calcium Lvl) 9.3 8.5-10.5 [facility]2019-02-01 10:02:00* Test Item Value Reference Range Interpretation Comme nts Total Protein (test code = T otal Protein) 6.6 6.4-8.4 [facility]2019-02-01 10:02:00* Test Item Value Reference Range Interpretation Comme nts Albumin Lvl (test code = Albumin Lvl) 3.3 3.5-5.0 [facility]2019-02-01 10:02:00* Test Item Value Reference Range Interpretation Comme nts ALT (test code = ALT) 71 See_Comment [A utomated message] The system which generated this result transmitted reference range: <=65. The reference range was not used to interpret this result as normal/abnormal. [facility]2019-02-01 10:02:00* Test Item Value Reference Range Interpretation Comme nts AST (test code = AST) 28 See_Comment [A utomated message] The system which generated this result transmitted reference range: <=37. The reference range was not used to interpret this result as normal/abnormal. [facility]2019-02-01 10:02:00* Test Item Value Reference Range Interpretation Comme nts Alk Phos (test code = Alk Phos) 71 39-136 [facility]2019-02-01 10:02:00* Test Item Value Reference Range Interpretation Comme nts Bili Total (test code = Bili Total) 0.4 0.2-1.3 [facility]2019-02-01 10:02:00* Test Item Value Reference Range Interpretation Comme nts eGFR (test code = eGFR) 168 [facility]2019-02-01 10:02:00* Test Item Value Reference Range Interpretation Comme nts AGAP (test code = AGAP) 18.0 10.0-20.0 [facility]2019-02-01 10:02:00* Test Item Value Reference Range Interpretation Comme nts B/C Ratio (test code = B/C Ratio) 50 1 6-25 [facility]2019-02-01 10:02:00* Test Item Value Reference Range Interpretation Comme nts Globulin (test code = Globulin) 3.3 2.7-4.2 [facility]2019-02-01 10:02:00* Test Item Value Reference Range Interpretation Comme nts A/G Ratio (test code = A/G Ratio) 1.0 1 0.7-1.6 [facility]IpivffpADUZPIBEUNIM2194-06-35 10:02:00* Test Item Value Reference Range Interpretation Comme nts AGAP (test code = AGAP) 18.0 10.0-20.0 [facility] HospitalHvxquwxZZDFEGMNIBPS1121-85-53 10:02:00* Test Item Value Reference Range Interpretation Comme nts B/C Ratio (test code = B/C Ratio) 50 1 6-25 [facility]TyyorshIJULWRYNEBSB0070-76-84 10:02:00* Test Item Value Reference Range Interpretation Comme nts Globulin (test code = Globulin) 3.3 2.7-4.2 [facility] HospitalXlpdfprAWAKEHHCGLJF1461-87-04 10:02:00* Test Item Value Reference Range Interpretation Comme nts A/G Ratio (test code = A/G Ratio) 1.0 1 0.7-1.6 [facility] HospitalDyrfmkzQSAXTBFNZSCF0345-02-53 10:02:00* Test Item Value Reference Range Interpretation Comme nts eGFR (test code = eGFR) 168 [facility] HospitalRyjsoogUGGQATNUMABC5036-71-72 10:02:00* Test Item Value Reference Range Interpretation Comme nts Sodium Lvl (test code = Sodium Lvl) 139 135-145 [facility] HospitalCmmrzcaHXUZRANGEVTK2620-58-29 10:02:00* Test Item Value Reference Range Interpretation Comme nts Potassium Lvl (test code = P otassium Lvl) 4.0 3.5-5.1 [facility] HospitalUyxjjbrTKFFYRAOFBUS8772-06-22 10:02:00* Test Item Value Reference Range Interpretation Comme nts Glucose Lvl (test code = Glucose Lvl) 87 70-99 [facility] HospitalMjlmebeIKVFNTMHCHAA7683-46-89 10:02:00* Test Item Value Reference Range Interpretation Comme nts BUN (test code = BUN) 15 7-22 [facility] HospitalYvdwfxnFEJSWPZKSQZJ3588-39-88 10:02:00* Test Item Value Reference Range Interpretation Comme nts Creatinine Lvl (test code = Creatinine Lvl) 0.30 0.50-1.40 [facility] HospitalOrcanqeARPJBXOVSFKZ7983-49-88 10:02:00* Test Item Value Reference Range Interpretation Comme nts Calcium Lvl (test code = Calcium Lvl) 9.3 8.5-10.5 [facility] HospitalEnqjxbtFSPSMTCUNFMQ1840-03-45 10:02:00* Test Item Value Reference Range Interpretation Comme nts Total Protein (test code = T otal Protein) 6.6 6.4-8.4 [facility] HospitalSskhpuaVXIASFQWXPAG8585-64-04 10:02:00* Test Item Value Reference Range Interpretation Comme nts CO2 (test code = CO2) 21 24-32 [facility] HospitalOmcsgceHTSFNINKKFFK2439-63-86 10:02:00* Test Item Value Reference Range Interpretation Comme nts Chloride Lvl (test code = Chloride Lvl) 104 95-109 [facility] HospitalWwpbevqGYESUPFACEWE2573-75-24 10:02:00* Test Item Value Reference Range Interpretation Comme nts Alk Phos (test code = Alk Phos) 71 39-136 [facility] HospitalInhmfzxYDOALUFOLELP9016-64-54 10:02:00* Test Item Value Reference Range Interpretation Comme nts Bili Total (test code = Bili Total) 0.4 0.2-1.3 [facility] HospitalNvlmsvhHRNPIKIYWDAB4104-71-86 10:02:00* Test Item Value Reference Range Interpretation Comme nts ALT (test code = ALT) 71 See_Comment [A utomated message] The system which generated this result transmitted reference range: <=65. The reference range was not used to interpret this result as normal/abnormal. [facility] HospitalBujcztkSJSWMQXOKDAG9370-48-13 10:02:00* Test Item Value Reference Range Interpretation Comme nts Albumin Lvl (test code = Albumin Lvl) 3.3 3.5-5.0 [facility] HospitalGknljwfTRJRJIOXLDSR6381-66-31 10:02:00* Test Item Value Reference Range Interpretation Comme nts AST (test code = AST) 28 See_Comment [A utomated message] The system which generated this result transmitted reference range: <=37. The reference range was not used to interpret this result as normal/abnormal. [facility]LiyyxgfXGXFISASHE2766-86-38 10:02:00* Test Item Value Reference Range Interpretation Comme nts WBC (test code = WBC) 9.9 3.7-10.4 [facility]YrtbmmyYOBOWYJEIM5196-60-21 10:02:00* Test Item Value Reference Range Interpretation Comme nts RBC (test code = RBC) 3.56 4.20-5.40 [facility] HendersonHkjumeyIKKHKBZEHN7973-86-26 10:02:00* Test Item Value Reference Range Interpretation Comme nts Hgb (test code = Hgb) 11.0 12.0-16.0 [facility] HendersonEtkyxsaYHODVCKJYS2168-73-41 10:02:00* Test Item Value Reference Range Interpretation Comme nts Hct (test code = Hct) 33.2 36.0-48.0 [facility] HendersonRjbuderEMNMKVBGRD1787-17-58 10:02:00* Test Item Value Reference Range Interpretation Comme nts MCV (test code = MCV) 93.3 80.0-98.0 [facility] HendersonNidfgawHQFWCCEAKO1690-06-76 10:02:00* Test Item Value Reference Range Interpretation Comme nts MCH (test code = MCH) 31.0 pg 27.0-31.0 [facility] HendersonAtdpedtYTEAMGVYMN9760-92-34 10:02:00* Test Item Value Reference Range Interpretation Comme nts MCHC (test code = MCHC) 33.2 32.0-36.0 [facility] HendersonYyugzkpDOVLVOWLSM7775-93-37 10:02:00* Test Item Value Reference Range Interpretation Comme nts RDW (test code = RDW) 16.8 11.5-14.5 [facility] HendersonJplbqlbRZHHRASAKV5640-13-97 10:02:00* Test Item Value Reference Range Interpretation Comme nts Platelet (test code = Platelet) 466 133-450 [facility] HendersonJhsizwuIFIWZLKXUY8268-94-10 10:02:00* Test Item Value Reference Range Interpretation Comme nts MPV (test code = MPV) 6.8 7.4-10.4 [facility] HendersonUoosvphCYZJEDODEO7263-33-67 10:02:00* Test Item Value Reference Range Interpretation Comme nts Segs (test code = Segs) 56.5 45.0-75.0 [facility] HendersonSuzzrmwODOARSCXBY4361-70-80 10:02:00* Test Item Value Reference Range Interpretation Comme nts Lymphocytes (test code = Lymphocytes) 34.1 20.0-40.0 [facility] HendersonRuiharmUJWDMSTORD8602-14-06 10:02:00* Test Item Value Reference Range Interpretation Comme nts Monocytes (test code = Monocytes) 6.9 2.0-12.0 [facility] HendersonHatrmarOWLQOOTTSA8336-82-47 10:02:00* Test Item Value Reference Range Interpretation Comme nts Eosinophils (test code = Eosinophils) 2.1 See_Comment [Automated messa ge] The system which generated this result transmitted reference range: <=4.0. The reference range was not used to interpret this result as normal/abnormal. [facility] HendersonIsunpvxNNFRTCYSNR7159-06-31 10:02:00* Test Item Value Reference Range Interpretation Comme nts Basophils (test code = Basophils) 0.4 See_Comment [Automated messa ge] The system which generated this result transmitted reference range: <=1.0. The reference range was not used to interpret this result as normal/abnormal. [facility] HendersonAyfecfoQOXHFCWOXA0225-71-06 10:02:00* Test Item Value Reference Range Interpretation Comme nts Neutrophils # (test code = N eutrophils #) 5.6 1.5-8.1 [facility] HendersonQsjuyyvDJDFIYUHIB3119-00-49 10:02:00* Test Item Value Reference Range Interpretation Comme nts Lymphocytes # (test code = L ymphocytes #) 3.4 1.0-5.5 [facility] HendersonWvqwpxdLSQZVQIGDO9281-42-08 10:02:00* Test Item Value Reference Range Interpretation Comme nts Monocytes # (test code = Monocytes #) 0.7 See_Comment [Automated messa ge] The system which generated this result transmitted reference range: <=0.8. The reference range was not used to interpret this result as normal/abnormal. [facility] HendersonIohyjolLPPEYTDRRH5118-71-99 10:02:00* Test Item Value Reference Range Interpretation Comme nts Eosinophils # (test code = Eosinophils #) 0.2 See_Comment [Automated mess age] The system which generated this result transmitted reference range: <=0.5. The reference range was not used to interpret this result as normal/abnormal. [facility] HendersonYftmljzWQBSBRPKKC7737-48-09 10:02:00* Test Item Value Reference Range Interpretation Comme nts Basophils # (test code = Basophils #) 0.0 See_Comment [Automated messa ge] The system which generated this result transmitted reference range: <=0.2. The reference range was not used to interpret this result as normal/abnormal. [facility]2019-01-30 10:36:00* Test Item Value Reference Range Interpretation Comme nts Magnesium Lvl (test code = M agnesium Lvl) 2.1 1.8-2.4 [facility]2019-01-30 10:36:00* Test Item Value Reference Range Interpretation Comme nts Glucose Lvl (test code = Glucose Lvl) 82 70-99 [facility]2019-01-30 10:36:00* Test Item Value Reference Range Interpretation Comme nts BUN (test code = BUN) 11 7-22 [facility]2019-01-30 10:36:00* Test Item Value Reference Range Interpretation Comme nts Creatinine Lvl (test code = Creatinine Lvl) 0.30 0.50-1.40 [facility]2019-01-30 10:36:00* Test Item Value Reference Range Interpretation Comme nts Sodium Lvl (test code = Sodium Lvl) 139 135-145 [facility]2019-01-30 10:36:00* Test Item Value Reference Range Interpretation Comme nts Potassium Lvl (test code = P otassium Lvl) 3.2 3.5-5.1 [facility]2019-01-30 10:36:00* Test Item Value Reference Range Interpretation Comme nts Chloride Lvl (test code = Chloride Lvl) 104 95-109 [facility]2019-01-30 10:36:00* Test Item Value Reference Range Interpretation Comme nts CO2 (test code = CO2) 23 24-32 [facility]2019-01-30 10:36:00* Test Item Value Reference Range Interpretation Comme nts AGAP (test code = AGAP) 15.2 10.0-20.0 [facility]2019-01-30 10:36:00* Test Item Value Reference Range Interpretation Comme nts Calcium Lvl (test code = Calcium Lvl) 9.1 8.5-10.5 [facility]2019-01-30 10:36:00* Test Item Value Reference Range Interpretation Comme nts eGFR (test code = eGFR) 168 [facility]2019-01-30 10:36:00* Test Item Value Reference Range Interpretation Comme nts Phosphorus (test code = Phosphorus) 3.4 2.5-4.5 [facility]YjfljayUKPVKFEGOK0001-55-65 10:36:00* Test Item Value Reference Range Interpretation Comme nts WBC (test code = WBC) 9.6 3.7-10.4 [facility] HendersonLccsijcAKLFEYMAYX5345-16-46 10:36:00* Test Item Value Reference Range Interpretation Comme nts RBC (test code = RBC) 3.64 4.20-5.40 [facility] HendersonRoockgnFGRREQGAIQ0243-11-66 10:36:00* Test Item Value Reference Range Interpretation Comme nts Hgb (test code = Hgb) 11.1 12.0-16.0 [facility] HendersonPaqwglwCAONMOJJQF8985-43-53 10:36:00* Test Item Value Reference Range Interpretation Comme nts Hct (test code = Hct) 33.3 36.0-48.0 [facility] HendersonDrwacneIFSIZVKLCA5475-96-21 10:36:00* Test Item Value Reference Range Interpretation Comme nts MCV (test code = MCV) 91.6 80.0-98.0 [facility] HendersonCugudwbBWBIDGVFLO0405-76-96 10:36:00* Test Item Value Reference Range Interpretation Comme nts MCH (test code = MCH) 30.5 pg 27.0-31.0 [facility] HendersonKqwwgjtPMDEBRKNIC7290-42-68 10:36:00* Test Item Value Reference Range Interpretation Comme nts MCHC (test code = MCHC) 33.3 32.0-36.0 [facility] HendersonYqqivezIMKTCEAPDF2598-58-09 10:36:00* Test Item Value Reference Range Interpretation Comme nts RDW (test code = RDW) 15.3 11.5-14.5 [facility] HendersonXxjcsfpNTSBTYBKNF3300-76-49 10:36:00* Test Item Value Reference Range Interpretation Comme nts Platelet (test code = Platelet) 471 914-450 [facility] HendersonRgzjqmvLLLEHVCDHU9920-12-53 10:36:00* Test Item Value Reference Range Interpretation Comme nts MPV (test code = MPV) 6.3 7.4-10.4 [facility] HendersonOepbctuJSBYVHLDGF2935-95-31 10:36:00* Test Item Value Reference Range Interpretation Comme nts Segs (test code = Segs) 57.5 45.0-75.0 [facility] HendersonBvdkecgQIGWPKKCNW7605-92-53 10:36:00* Test Item Value Reference Range Interpretation Comme nts Lymphocytes (test code = Lymphocytes) 31.7 20.0-40.0 [facility] HendersonLabiypuNBJJZBDRMJ0878-92-15 10:36:00* Test Item Value Reference Range Interpretation Comme nts Monocytes (test code = Monocytes) 8.3 2.0-12.0 [facility] HendersonMaoikrxZOSUOVJFZQ8101-90-97 10:36:00* Test Item Value Reference Range Interpretation Comme nts Eosinophils (test code = Eosinophils) 1.8 See_Comment [Automated [employer] ge] The system which generated this result transmitted reference range: <=4.0. The reference range was not used to interpret this result as normal/abnormal. [facility] HendersonUipdrtjALDWQNUAMX4353-48-44 10:36:00* Test Item Value Reference Range Interpretation Comme nts Basophils (test code = Basophils) 0.7 See_Comment [Automated [employer] ge] The system which generated this result transmitted reference range: <=1.0. The reference range was not used to interpret this result as normal/abnormal. [facility] HendersonFbmlzenEDNIYSIGRS1515-93-25 10:36:00* Test Item Value Reference Range Interpretation Comme nts Neutrophils # (test code = N eutrophils #) 5.5 1.5-8.1 [facility] HendersonQzwdwymOEHIAIFEHX2009-03-00 10:36:00* Test Item Value Reference Range Interpretation Comme nts Lymphocytes # (test code = L ymphocytes #) 3.0 1.0-5.5 [facility] HendersonVkrlbtnBQTGLHBNNJ6298-28-24 10:36:00* Test Item Value Reference Range Interpretation Comme nts Monocytes # (test code = Monocytes #) 0.8 See_Comment [Automated messa ge] The system which generated this result transmitted reference range: <=0.8. The reference range was not used to interpret this result as normal/abnormal. [facility] HendersonXagbqntMEOKTGLTRR2994-10-06 10:36:00* Test Item Value Reference Range Interpretation Comme nts Eosinophils # (test code = Eosinophils #) 0.2 See_Comment [Automated mess age] The system which generated this result transmitted reference range: <=0.5. The reference range was not used to interpret this result as normal/abnormal. [facility] HendersonYpyaugnLJRAQBCSBD1393-21-82 10:36:00* Test Item Value Reference Range Interpretation Comme nts Basophils # (test code = Basophils #) 0.1 See_Comment [Automated messa ge] The system which generated this result transmitted reference range: <=0.2. The reference range was not used to interpret this result as normal/abnormal. [facility] QDXJCVV2091-54-64 10:36:00* Test Item Value Reference Range Interpretation Comme nts Ca Ion WB (test code = Ca Ion WB) 1.15 1.05-1.25 [facility]2019-01-30 10:36:00* Test Item Value Reference Range Interpretation Comme nts Ca Norm WB (test code = Ca Norm WB) 1.17 1.05-1.25 [facility] HospitalAykzovuBRVUKPJVGQRW9587-33-79 10:50:00* Test Item Value Reference Range Interpretation Comme nts AGAP (test code = AGAP) 15.2 10.0-20.0 [facility] HospitalRqejfmaBARTPIOUDQLR0717-30-26 10:50:00* Test Item Value Reference Range Interpretation Comme nts B/C Ratio (test code = B/C Ratio) 50 1 6-25 [facility] HospitalXzjralwCRSJDHKTZLJT2184-90-97 10:50:00* Test Item Value Reference Range Interpretation Comme nts Globulin (test code = Globulin) 3.1 2.7-4.2 [facility] HospitalDpokltuIHBWFRRHQYTU1610-08-52 10:50:00* Test Item Value Reference Range Interpretation Comme nts A/G Ratio (test code = A/G Ratio) 1.0 1 0.7-1.6 [facility] HospitalEpfifmmAPDGOSZRUYFO5897-53-91 10:50:00* Test Item Value Reference Range Interpretation Comme nts Glucose Lvl (test code = Glucose Lvl) 94 70-99 [facility] HospitalMonbxksSTPYAZLJBLQV2405-57-29 10:50:00* Test Item Value Reference Range Interpretation Comme nts BUN (test code = BUN) 10 7-22 [facility] HospitalWickhucLVLVJQOZRHXN4919-56-27 10:50:00* Test Item Value Reference Range Interpretation Comme nts Creatinine Lvl (test code = Creatinine Lvl) 0.20 0.50-1.40 [facility] HospitalSjlpnkoDZTJJQVSDTLQ1331-63-60 10:50:00* Test Item Value Reference Range Interpretation Comme nts Sodium Lvl (test code = Sodium Lvl) 138 135-145 [facility] HospitalAmvxhjyVKUILMGDEQMD8625-71-72 10:50:00* Test Item Value Reference Range Interpretation Comme nts Potassium Lvl (test code = P otassium Lvl) 3.2 3.5-5.1 [facility] HospitalMtsdoipXVPPWYSNXKET4760-43-38 10:50:00* Test Item Value Reference Range Interpretation Comme nts Chloride Lvl (test code = Chloride Lvl) 104 95-109 [facility] HospitalOyfzhtpQIKHVNTFPMBS7544-49-93 10:50:00* Test Item Value Reference Range Interpretation Comme nts CO2 (test code = CO2) 22 24-32 [facility] HospitalJszmvivQIZGMVSTPSPP3542-69-25 10:50:00* Test Item Value Reference Range Interpretation Comme nts Calcium Lvl (test code = Calcium Lvl) 8.9 8.5-10.5 [facility] HospitalKhbbmnpUGLGSOOKTPIL3018-35-77 10:50:00* Test Item Value Reference Range Interpretation Comme nts Total Protein (test code = T otal Protein) 6.3 6.4-8.4 [facility] HospitalLcxsegfFQCFZPZQIFFI4951-18-32 10:50:00* Test Item Value Reference Range Interpretation Comme nts Albumin Lvl (test code = Albumin Lvl) 3.2 3.5-5.0 [facility] HospitalPyzpbtnRPPMVGIOLMHG4162-81-09 10:50:00* Test Item Value Reference Range Interpretation Comme nts ALT (test code = ALT) 142 See_Comment [A utomated message] The system which generated this result transmitted reference range: <=65. The reference range was not used to interpret this result as normal/abnormal. [facility] HospitalDbrxgmkCANGTLDBYXUW1490-49-43 10:50:00* Test Item Value Reference Range Interpretation Comme nts AST (test code = AST) 68 See_Comment [A utomated message] The system which generated this result transmitted reference range: <=37. The reference range was not used to interpret this result as normal/abnormal. [facility] HospitalWqttoolLDHXEKHHBOHW9267-09-47 10:50:00* Test Item Value Reference Range Interpretation Comme nts Alk Phos (test code = Alk Phos) 78 39-136 [facility] HospitalQkoxofuWUNXADDFPBHA9195-96-83 10:50:00* Test Item Value Reference Range Interpretation Comme nts Bili Total (test code = Bili Total) 0.4 0.2-1.3 [facility] HospitalOqjkbjnNQTEZOBGFLZK8171-38-30 10:50:00* Test Item Value Reference Range Interpretation Comme nts eGFR (test code = eGFR) 192 [facility]GlxbvozOLCBIWZMQE1145-60-83 10:50:00* Test Item Value Reference Range Interpretation Comme nts WBC (test code = WBC) 9.8 3.7-10.4 [facility] HendersonJhcwpkxLHFTFQOBAB3553-59-19 10:50:00* Test Item Value Reference Range Interpretation Comme nts RBC (test code = RBC) 3.34 4.20-5.40 [facility] HendersonMxzdpanLKEXVMYKVA9797-54-22 10:50:00* Test Item Value Reference Range Interpretation Comme nts Hgb (test code = Hgb) 10.4 12.0-16.0 [facility] HendersonOmvsjugHKXLAICZKI0104-48-99 10:50:00* Test Item Value Reference Range Interpretation Comme nts Hct (test code = Hct) 30.7 36.0-48.0 [facility] HendersonZuxtvncPMUPPVWEZF2614-88-57 10:50:00* Test Item Value Reference Range Interpretation Comme nts MCV (test code = MCV) 92.0 80.0-98.0 [facility] HendersonJjzllfcPIAXHZZJDK9822-66-90 10:50:00* Test Item Value Reference Range Interpretation Comme nts MCH (test code = MCH) 31.1 pg 27.0-31.0 [facility] HendersonRmpjvbfUXFRZCSIJO7193-10-47 10:50:00* Test Item Value Reference Range Interpretation Comme nts MCHC (test code = MCHC) 33.8 32.0-36.0 [facility] HendersonFjhnkyuHWRQINAROY8129-68-70 10:50:00* Test Item Value Reference Range Interpretation Comme nts RDW (test code = RDW) 15.1 11.5-14.5 [facility] HendersonVagexwkKXKNBLAOLX6292-25-35 10:50:00* Test Item Value Reference Range Interpretation Comme nts Platelet (test code = Platelet) 471 133-450 [facility] HendersonBezzsakTYOTZHFPMU1516-06-38 10:50:00* Test Item Value Reference Range Interpretation Comme nts MPV (test code = MPV) 6.6 7.4-10.4 [facility] HendersonHkcrbmlOPKIGFHXBX1599-71-08 10:50:00* Test Item Value Reference Range Interpretation Comme nts RBC Morph (test code = RBC Morph) Normal (05/14/18 4:50 AM) [facility] HendersonJskwktqGSNPITMJPB8731-34-41 10:50:00* Test Item Value Reference Range Interpretation Comme nts Plt Morph (test code = Plt Morph) Normal (05/14/18 4:50 AM) [facility] HendersonKmfkgrnGKPDPHDVOV4061-49-30 10:50:00* Test Item Value Reference Range Interpretation Comme nts Segs (test code = Segs) 54.8 45.0-75.0 [facility] HendersonVrirbkfGDKKIIKBYY4754-97-73 10:50:00* Test Item Value Reference Range Interpretation Comme nts Lymphocytes (test code = Lymphocytes) 35.8 20.0-40.0 [facility] HendersonSuqhphyMXPIQCWOKS7642-35-50 10:50:00* Test Item Value Reference Range Interpretation Comme nts Monocytes (test code = Monocytes) 7.9 2.0-12.0 [facility] HendersonKaenceoHZRZQSJEVO7258-56-65 10:50:00* Test Item Value Reference Range Interpretation Comme nts Eosinophils (test code = Eosinophils) 0.9 See_Comment [Automated messa ge] The system which generated this result transmitted reference range: <=4.0. The reference range was not used to interpret this result as normal/abnormal. [facility] HendersonFrndhdcJHCDEVSSZH0861-25-95 10:50:00* Test Item Value Reference Range Interpretation Comme nts Basophils (test code = Basophils) 0.6 See_Comment [Automated messa ge] The system which generated this result transmitted reference range: <=1.0. The reference range was not used to interpret this result as normal/abnormal. [facility] HendersonJbtdaikMPKGVKMZCL2199-23-22 10:50:00* Test Item Value Reference Range Interpretation Comme nts Neutrophils # (test code = N eutrophils #) 5.3 1.5-8.1 [facility] HendersonVqseiucBMIDKJBISN4115-83-66 10:50:00* Test Item Value Reference Range Interpretation Comme nts Lymphocytes # (test code = L ymphocytes #) 3.5 1.0-5.5 [facility] HendersonKfvbgpyDCGSEQDZQG6828-74-62 10:50:00* Test Item Value Reference Range Interpretation Comme nts Monocytes # (test code = Monocytes #) 0.8 See_Comment [Automated messa ge] The system which generated this result transmitted reference range: <=0.8. The reference range was not used to interpret this result as normal/abnormal. [facility] HendersonOtwmvwmLNGCABWXFU0759-50-28 10:50:00* Test Item Value Reference Range Interpretation Comme nts Eosinophils # (test code = Eosinophils #) 0.1 See_Comment [Automated mess age] The system which generated this result transmitted reference range: <=0.5. The reference range was not used to interpret this result as normal/abnormal. [facility] HendersonFhifkgvLTEDUZIVLB1980-78-80 10:50:00* Test Item Value Reference Range Interpretation Comme nts Basophils # (test code = Basophils #) 0.1 See_Comment [Automated messa ge] The system which generated this result transmitted reference range: <=0.2. The reference range was not used to interpret this result as normal/abnormal. [facility]PARATHY[facility]ID TNRLIKR0747-03-68 10:50:00* Test Item Value Reference Range Interpretation Comme nts Ca Ion WB (test code = Ca Ion WB) 1.17 1.05-1.25 [facility] ULRWPGA8698-54-99 10:50:00* Test Item Value Reference Range Interpretation Comme nts Ca Norm WB (test code = Ca Norm WB) 1.17 1.05-1.25 [facility]CHEM BJGLR1732-73-41 10:50:00* Test Item Value Reference Range Interpretation Comme nts Phosphorus (test code = Phosphorus) 2.3 2.5-4.5 [facility]2019-01-29 10:50:00* Test Item Value Reference Range Interpretation Comme nts Magnesium Lvl (test code = M agnesium Lvl) 2.0 1.8-2.4 [facility]2019-01-29 10:50:00* Test Item Value Reference Range Interpretation Comme nts A/G Ratio (test code = A/G Ratio) 1.0 1 0.7-1.6 [facility]2019-01-29 10:50:00* Test Item Value Reference Range Interpretation Comme nts B/C Ratio (test code = B/C Ratio) 50 1 6-25 [facility]2019-01-29 10:50:00* Test Item Value Reference Range Interpretation Comme nts AGAP (test code = AGAP) 15.2 10.0-20.0 [facility]2019-01-29 10:50:00* Test Item Value Reference Range Interpretation Comme nts Globulin (test code = Globulin) 3.1 2.7-4.2 [facility]2019-01-29 10:50:00* Test Item Value Reference Range Interpretation Comme nts eGFR (test code = eGFR) 192 [facility]2019-01-29 10:50:00* Test Item Value Reference Range Interpretation Comme nts Alk Phos (test code = Alk Phos) 78 39-136 [facility]2019-01-29 10:50:00* Test Item Value Reference Range Interpretation Comme nts Bili Total (test code = Bili Total) 0.4 0.2-1.3 [facility]2019-01-29 10:50:00* Test Item Value Reference Range Interpretation Comme nts AST (test code = AST) 68 See_Comment [A utomated message] The system which generated this result transmitted reference range: <=37. The reference range was not used to interpret this result as normal/abnormal. [facility]2019-01-29 10:50:00* Test Item Value Reference Range Interpretation Comme nts ALT (test code = ALT) 142 See_Comment [A utomated message] The system which generated this result transmitted reference range: <=65. The reference range was not used to interpret this result as normal/abnormal. [facility] [place] 10:50:00* Test Item Value Reference Range Interpretation Comme nts Chloride Lvl (test code = Chloride Lvl) 104 95-109 [facility]2019-01-29 10:50:00* Test Item Value Reference Range Interpretation Comme nts CO2 (test code = CO2) 22 24-32 [facility]2019-01-29 10:50:00* Test Item Value Reference Range Interpretation Comme nts Calcium Lvl (test code = Calcium Lvl) 8.9 8.5-10.5 [facility]2019-01-29 10:50:00* Test Item Value Reference Range Interpretation Comme nts Total Protein (test code = T otal Protein) 6.3 6.4-8.4 [facility]2019-01-29 10:50:00* Test Item Value Reference Range Interpretation Comme nts Albumin Lvl (test code = Albumin Lvl) 3.2 3.5-5.0 [facility]2019-01-29 10:50:00* Test Item Value Reference Range Interpretation Comme nts BUN (test code = BUN) 10 7-22 [facility]2019-01-29 10:50:00* Test Item Value Reference Range Interpretation Comme nts Glucose Lvl (test code = Glucose Lvl) 94 70-99 [facility]2019-01-29 10:50:00* Test Item Value Reference Range Interpretation Comme nts Sodium Lvl (test code = Sodium Lvl) 138 135-145 [facility]2019-01-29 10:50:00* Test Item Value Reference Range Interpretation Comme nts Creatinine Lvl (test code = Creatinine Lvl) 0.20 0.50-1.40 [facility]2019-01-29 10:50:00* Test Item Value Reference Range Interpretation Comme nts Potassium Lvl (test code = P otassium Lvl) 3.2 3.5-5.1 [facility]2019-01-28 10:19:00* Test Item Value Reference Range Interpretation Comme nts Magnesium Lvl (test code = M agnesium Lvl) 2.2 1.8-2.4 [facility]2019-01-28 10:19:00* Test Item Value Reference Range Interpretation Comme nts Phosphorus (test code = Phosphorus) 3.6 2.5-4.5 [facility]UK[facility]71[facility] 10:19:[facility]* Test Item Value Reference Range Interpretation Comme nts Bands (test code = Bands) 2.0 See_Comment [Automated messa ge] The system which generated this result transmitted reference range: <=11.0. The reference range was not used to interpret this result as normal/abnormal. [facility]MafozchEXZNPLOZRK7354-00-86 10:19:00* Test Item Value Reference Range Interpretation Comme nts Metamyelocytes (test code = Metamyelocytes) 11.0 See_Comment [Automated mes scot] The system which generated this result transmitted reference range: <=1.0. The reference range was not used to interpret this result as normal/abnormal. [facility]OfwocucBUGDUKJVFH6691-37-76 10:19:00* Test Item Value Reference Range Interpretation Comme nts Myelocytes (test code = Myelocytes) 4.0 [facility]JchojroKLVLQSLDZE7569-76-46 10:19:00* Test Item Value Reference Range Interpretation Comme nts Atypical Lymphs (test code = Atypical Lymphs) 0.0 [facility]PczcfwxRFTAZFJXQM0802-56-93 10:19:00* Test Item Value Reference Range Interpretation Comme nts RBC Morph (test code = RBC Morph) Normal (05/13/18 4:19 AM) [facility]IpwjxejFRAVVCQFDT9239-21-35 10:19:00* Test Item Value Reference Range Interpretation Comme nts Plt Morph (test code = Plt Morph) Normal (05/13/18 4:19 AM) [facility] HendersonMomsmpoLBYAQAORHZ0387-73-03 10:19:00* Test Item Value Reference Range Interpretation Comme nts Toxic Gran (test code = Toxic Gran) Moderate *ABN*(05/13/18 4:19 AM) [facility] HendersonZdekrbbWKOYHVTOWT8451-94-47 10:19:00* Test Item Value Reference Range Interpretation Comme nts Dohle Bodies (test code = Dohle Bodies) Moderate *ABN*(05/13/18 4:19 AM) [facility] [id number] 10:19:00* Test Item Value Reference Range Interpretation Comme nts Ca Ion WB (test code = Ca Ion WB) 1.17 1.05-1.25 [facility]PAR[facility] [id number] 10:19:00* Test Item Value Reference Range Interpretation Comme nts Ca Norm WB (test code = Ca Norm WB) 1.19 1.05-1.25 [facility] HospitalCxevtexRCXUWDMYSC2457-95-44 10:09:00* Test Item Value Reference Range Interpretation Comme nts Bands (test code = Bands) 6.0 See_Comment [Automated messa ge] The system which generated this result transmitted reference range: <=11.0. The reference range was not used to interpret this result as normal/abnormal. [facility]AbrqiyuVQXVZTEPQO5459-29-46 10:09:00* Test Item Value Reference Range Interpretation Comme nts Metamyelocytes (test code = Metamyelocytes) 3.0 See_Comment [Automated mes scot] The system which generated this result transmitted reference range: <=1.0. The reference range was not used to interpret this result as normal/abnormal. [facility] HendersonLxsflenXEFURBXUEI4563-11-27 10:09:00* Test Item Value Reference Range Interpretation Comme nts Myelocytes (test code = Myelocytes) 2.0 [facility] HendersonDljokjzBZCGHUSXMA6836-45-23 10:09:00* Test Item Value Reference Range Interpretation Comme nts Atypical Lymphs (test code = Atypical Lymphs) 0.0 [facility]IvpmlnjYUIJMDMQQO5216-44-38 10:09:00* Test Item Value Reference Range Interpretation Comme nts NRBC (test code = NRBC) 1 [facility] HendersonRpsnvkeKRGQOXKJMV9714-97-58 10:09:00* Test Item Value Reference Range Interpretation Comme nts RBC Morph (test code = RBC Morph) Normal (05/12/18 4:09 AM) [facility] HendersonRuqtuvuECXQJMVRDC0977-52-60 10:09:00* Test Item Value Reference Range Interpretation Comme nts Plt Morph (test code = Plt Morph) Normal (05/12/18 4:09 AM) [facility]CHE[facility] [id number] 11:26:00* Test Item Value Reference Range Interpretation Comme nts B/C Ratio (test code = B/C Ratio) 50 1 6-25 [facility]CHE[facility] [id number] 11:26:00* Test Item Value Reference Range Interpretation Comme nts Globulin (test code = Globulin) 4.4 2.7-4.2 [facility]2019-01-26 11:26:00* Test Item Value Reference Range Interpretation Comme nts A/G Ratio (test code = A/G Ratio) 0.7 1 0.7-1.6 [facility]2019-01-26 11:26:00* Test Item Value Reference Range Interpretation Comme nts Total Protein (test code = T otal Protein) 7.5 6.4-8.4 [facility]2019-01-26 11:26:00* Test Item Value Reference Range Interpretation Comme nts Albumin Lvl (test code = Albumin Lvl) 3.1 3.5-5.0 [facility]2019-01-26 11:26:00* Test Item Value Reference Range Interpretation Comme nts ALT (test code = ALT) 95 See_Comment [A utomated message] The system which generated this result transmitted reference range: <=65. The reference range was not used to interpret this result as normal/abnormal. [facility]2019-01-26 11:26:00* Test Item Value Reference Range Interpretation Comme nts AST (test code = AST) 43 See_Comment [A utomated message] The system which generated this result transmitted reference range: <=37. The reference range was not used to interpret this result as normal/abnormal. [facility]2019-01-26 11:26:00* Test Item Value Reference Range Interpretation Comme nts Alk Phos (test code = Alk Phos) 106 39-136 [facility]2019-01-26 11:26:00* Test Item Value Reference Range Interpretation Comme nts Bili Total (test code = Bili Total) 0.2 0.2-1.3 [facility]VhemmcdHTSJYXXPBO7173-08-91 11:26:00* Test Item Value Reference Range Interpretation Comme nts Bands (test code = Bands) 2.0 See_Comment [Automated messa ge] The system which generated this result transmitted reference range: <=11.0. The reference range was not used to interpret this result as normal/abnormal. [facility] HendersonTupiaimOSZVFSIXVQ6111-62-41 11:26:00* Test Item Value Reference Range Interpretation Comme nts Atypical Lymphs (test code = Atypical Lymphs) 1.0 [facility]KcighhzGJPVKWZRJO0387-79-92 11:26:00* Test Item Value Reference Range Interpretation Comme nts Metamyelocytes (test code = Metamyelocytes) 8.0 See_Comment [Automated mes scot] The system which generated this result transmitted reference range: <=1.0. The reference range was not used to interpret this result as normal/abnormal. [facility]GwnrbjrITLRFKNKIT3115-10-24 11:26:00* Test Item Value Reference Range Interpretation Comme nts Myelocytes (test code = Myelocytes) 8.0 [facility]LTFYWDYKQI4433-21-05 11:26:00* Test Item Value Reference Range Interpretation Comme nts Hep Bs Ag (test code = Hep Bs Ag) Negative *NA*(05/11/18 5:26 AM) [facility] HospitalWiwehwjQWUXSIGGYY5914-06-23 11:26:00* Test Item Value Reference Range Interpretation Comme nts Hep B Core IgM (test code = Hep B Core IgM) Negative *NA*(05/11/18 5:26 AM) [facility] HospitalHyvjcadZFMMEAQESZ0711-72-91 11:26:00* Test Item Value Reference Range Interpretation Comme nts Hep C Ab (test code = Hep C Ab) Negative *NA*(05/11/18 5:26 AM) [facility] HospitalFbyqaihQPRDGTTCWR4193-29-24 11:26:00* Test Item Value Reference Range Interpretation Comme nts Hep A IgM (test code = Hep A IgM) Negative *NA*(05/11/18 5:26 AM) [facility] HospitalannCARDIAC JUCZCGU8929-19-04 10:16:00* Test Item Value Reference Range Interpretation Comme nts Total CK (test code = Total CK) 28 12-191 [facility] HospitalJptuamkXOEZEZQYKM2869-26-15 01:31:00* Test Item Value Reference Range Interpretation Comme nts Vanco Tr (test code = Vanco Tr) 4.0 [facility] HospitalArsicktRYZMLDGJUH2129-22-05 01:31:00* Test Item Value Reference Range Interpretation Comme nts Vanco Tr TND (test code = Va nco Tr TND) [id number] 1 [facility]BL[facility] [id number] 22:00:00* Test Item Value Reference Range Interpretation Comme nts ABO/Rh (test code = ABO/Rh) O POS [facility] HospitalannGram Stain Fcfhif6756-72-44 23:13:00* Test Item Value Reference Range Interpretation Comme nts Gram Stain Report (test code = Gram Stain Report) Rare Gram Negative Rods Few Gram Positive Rods Many Gram Positive Cocci Many Wbc [facility] HospitalannCulture: BAL Quantitative w/Gram [id number] 23:13:00* Test Item Value Reference Range Interpretation Comme nts Culture: BAL Quantitative w/Gram Stain (test code = Culture: BAL Quantitative w/Gram Stain) >10,000 CFU/mL Yeast >10,000 CFU/mL Normal Respiratory Mayte Isolated [facility] HospitalannCARDIAC KOMTQFO5212-14-14 12:16:00* Test Item Value Reference Range Interpretation Comme nts BNP (test code = BNP) 3 [facility] HospitalWrhehysVCQVUCZORN5029-20-10 10:04:00* Test Item Value Reference Range Interpretation Comme nts PT (test code = PT) 15.9 s 12.0-14.7 [facility] HospitalUemizpgQEBMICHJUY5361-33-72 10:04:00* Test Item Value Reference Range Interpretation Comme nts INR (test code = INR) 1.30 1 0.85-1.17 [facility] HospitalFalqzteQFLIWSINMZ7568-71-67 10:04:00* Test Item Value Reference Range Interpretation Comme nts PTT (test code = PTT) 72.3 s 22.9-35.8 [facility] HospitalMdstfxiSZTJMKAEUH4785-35-41 10:04:00* Test Item Value Reference Range Interpretation Comme nts IgM Lvl (test code = IgM Lvl) 46.0 60.0-263.0 [facility] HospitalZwwmnxoTNBKOBXQUS1421-03-34 10:04:00* Test Item Value Reference Range Interpretation Comme nts IgG Lvl (test code = IgG Lvl) 328 858-6001 [facility] HospitalKunyxlzQCOWIUNGOI2539-29-67 10:30:00* Test Item Value Reference Range Interpretation Comme nts PTT (test code = PTT) 35.3 s 22.9-35.8 [facility] HospitalAusfcayXENKKMUDPZ4216-72-11 10:30:00* Test Item Value Reference Range Interpretation Comme nts PT (test code = PT) 15.2 s 12.0-14.7 [facility] HospitalKpxoneqAVVGIKQMWU6301-06-87 10:30:00* Test Item Value Reference Range Interpretation Comme nts INR (test code = INR) 1.22 1 0.85-1.17 [facility] HospitalCulture: [id number] 02:22:00* Test Item Value Reference Range Interpretation Comme nts Culture: Urine (test code = Culture: Urine) No Growth [facility] HospitalGoHome JXCSH5601-09-70 02:08:00* Test Item Value Reference Range Interpretation Comme nts Lactic Acid Lvl (test code = Lactic Acid Lvl) 1.9 0.5-2.2 [facility] HospitalGoHome [id number] 02:08:00* Test Item Value Reference Range Interpretation Comme nts Procalcitonin Lvl (test code = Procalcitonin Lvl) 17.32 See_Comment [Autom ated message] The system which generated this result transmitted reference range: <=0.10. The reference range was not used to interpret this result as normal/abnormal. [facility] AND [id number] 20:01:00* Test Item Value Reference Range Interpretation Comme nts UA Color (test code = UA Color) Yellow [facility] AND [id number] 20:01:00* Test Item Value Reference Range Interpretation Comme nts UA Turbidity (test code = UA Turbidity) Clear (04/24/18 2:01 PM) [facility] AND [id number] 20:01:00* Test Item Value Reference Range Interpretation Comme nts UA Spec Grav (test code = UA Spec Grav) 1.023 1 [facility] AND [id number] 20:01:00* Test Item Value Reference Range Interpretation Comme nts UA pH (test code = UA pH) 5.0 1 5.0-8.0 [facility] AND [id number] 20:01:00* Test Item Value Reference Range Interpretation Comme nts UA Protein (test code = UA Protein) Negative (04/24/18 2:01 PM) [facility] AND [id number] 20:01:00* Test Item Value Reference Range Interpretation Comme nts UA Glucose (test code = UA Glucose) Negative *NA*(04/24/18 2:01 PM) [facility] AND [id number] 20:01:00* Test Item Value Reference Range Interpretation Comme nts UA Ketones (test code = UA Ketones) Negative *NA*(04/24/18 2:01 PM) [facility] AND [id number] 20:01:00* Test Item Value Reference Range Interpretation Comme nts UA Bili (test code = UA Bili) Negative *NA*(04/24/18 2:01 PM) [facility] AND [id number] 20:01:00* Test Item Value Reference Range Interpretation Comme nts UA Blood (test code = UA Blood) Moderate *ABN*(04/24/18 2:01 PM) [facility] AND [id number] 20:01:00* Test Item Value Reference Range Interpretation Comme nts UA Urobilinogen (test code = UA Urobilinogen) no gt 0.1-1.0 [facility] AND [id number] 20:01:00* Test Item Value Reference Range Interpretation Comme nts UA Nitrite (test code = UA Nitrite) Negative (04/24/18 2:01 PM) [facility] AND [id number] 20:01:00* Test Item Value Reference Range Interpretation Comme nts UA Leuk Est (test code = UA Leuk Est) Negative (04/24/18 2:01 PM) [facility] AND [id number] 20:01:00* Test Item Value Reference Range Interpretation Comme nts UA Sq Epi (test code = UA Sq Epi) None Seen (04/24/18 2:01 PM) [facility] AND [id number] 20:01:00* Test Item Value Reference Range Interpretation Comme nts UA WBC (test code = UA WBC) 4 See_Comment [Automated Spotted] The system which generated this result transmitted reference range: <=5. The reference range was not used to interpret this result as normal/abnormal. [facility] AND [id number] 20:01:00* Test Item Value Reference Range Interpretation Comme nts UA RBC (test code = UA RBC) 36 See_Comment [Automated Spotted] The system which generated this result transmitted reference range: <=2. The reference range was not used to interpret this result as normal/abnormal. [facility] AND [id number] 20:01:00* Test Item Value Reference Range Interpretation Comme nts UA Bacteria (test code = UA Bacteria) Few /HPF [facility] AND [id number] 20:01:00* Test Item Value Reference Range Interpretation Comme nts UA Mucus (test code = UA Mucus) Few /LPF [facility] HospitalGram Stain [id number] 17:29:00* Test Item Value Reference Range Interpretation Comme nts Gram Stain Report (test code = Gram Stain Report) Good Quality Specimen . Less Than 25 Squamous Epithelial Cells/Lpf . Many Wbc Many Gram Positive Cocci [facility] HospitalCulture: Respiratory w/Gram Bkahy3882-29-20 17:29:00* Test Item Value Reference Range Interpretation Comme nts Culture: Respiratory w/Gram Stain (test code = Culture: Respiratory w/Gram Stain) Moderate Yeast Isolated Normal Respiratory Mayte Isolated [facility]StblusoMZDMXXXWKW7060-69-85 09:59:00* Test Item Value Reference Range Interpretation Comme nts PT (test code = PT) 15.1 s 12.0-14.7 [facility]RkfeehkUEGQTPUAHP2240-49-51 09:59:00* Test Item Value Reference Range Interpretation Comme nts INR (test code = INR) 1.21 1 0.85-1.17 [facility] HospitalXbeyiweVTEHATLVMA0260-86-93 09:59:00* Test Item Value Reference Range Interpretation Comme nts PTT (test code = PTT) 69.7 s 22.9-35.8 [facility] HospitalNdpwalpGTATYVMCSP0559-17-70 09:59:00* Test Item Value Reference Range Interpretation Comme nts IgG Lvl (test code = IgG Lvl) 157 079-1678 [facility] HospitalApwmljbLQNGYKGQNT7549-84-57 09:59:00* Test Item Value Reference Range Interpretation Comme nts IgM Lvl (test code = IgM Lvl) 59.0 60.0-263.0 [facility] AND [id number] 20:11:00* Test Item Value Reference Range Interpretation Comme nts UA Color (test code = UA Color) Ltyellow [facility] AND [id number] 20:11:00* Test Item Value Reference Range Interpretation Comme nts UA Turbidity (test code = UA Turbidity) Clear (04/23/18 2:11 PM) [facility] AND [id number] 20:11:00* Test Item Value Reference Range Interpretation Comme nts UA Spec Grav (test code = UA Spec Grav) 1.019 1 [facility] AND [id number] 20:11:00* Test Item Value Reference Range Interpretation Comme nts UA pH (test code = UA pH) 5.0 1 5.0-8.0 [facility] AND [id number] 20:11:00* Test Item Value Reference Range Interpretation Comme nts UA Protein (test code = UA Protein) Negative (04/23/18 2:11 PM) [facility] AND [id number] 20:11:00* Test Item Value Reference Range Interpretation Comme nts UA Glucose (test code = UA Glucose) Negative *NA*(04/23/18 2:11 PM) [facility] AND [id number] 20:11:00* Test Item Value Reference Range Interpretation Comme nts UA Ketones (test code = UA Ketones) Negative *NA*(04/23/18 2:11 PM) [facility] AND [id number] 20:11:00* Test Item Value Reference Range Interpretation Comme nts UA Bili (test code = UA Bili) Negative *NA*(04/23/18 2:11 PM) [facility] AND [id number] 20:11:00* Test Item Value Reference Range Interpretation Comme nts UA Blood (test code = UA Blood) Negative (04/23/18 2:11 PM) [facility] AND [id number] 20:11:00* Test Item Value Reference Range Interpretation Comme nts UA Nitrite (test code = UA Nitrite) Negative (04/23/18 2:11 PM) [facility] AND [id number] 20:11:00* Test Item Value Reference Range Interpretation Comme nts UA Leuk Est (test code = UA Leuk Est) Negative (04/23/18 2:11 PM) [facility] AND [id number] 20:11:00* Test Item Value Reference Range Interpretation Comme nts UA Sq Epi (test code = UA Sq Epi) Occasional /LPF [facility] AND [id number] 20:11:00* Test Item Value Reference Range Interpretation Comme nts UA WBC (test code = UA WBC) 1 See_Comment [Automated messa ge] The system which generated this result transmitted reference range: <=5. The reference range was not used to interpret this result as normal/abnormal. [facility] [employer]ior[employer] AND [id number] 20:11:00* Test Item Value Reference Range Interpretation Comme nts UA RBC (test code = UA RBC) no gt See_Comment [Automated messa ge] The system which generated this result transmitted reference range: <=2. The reference range was not used to interpret this result as normal/abnormal. [facility] AND [id number] 20:11:00* Test Item Value Reference Range Interpretation Comme nts UA Mucus (test code = UA Mucus) Few /LPF [facility] [id number] 20:11:00* Test Item Value Reference Range Interpretation Comme nts UA Hyal Cast (test code = UA Hyal Cast) 1 See_Comment [Automated message] The system which generated this result transmitted reference range: <=2. The reference range was not used to interpret this result as normal/abnormal. [facility] AND [id number] 20:11:00* Test Item Value Reference Range Interpretation Comme nts UA Urobilinogen (test code = UA Urobilinogen) 1.0 0.1-1.0 [facility] [id number] 10:23:00* Test Item Value Reference Range Interpretation Comme nts GQ1b Ab IgG (test code = GQ1b Ab IgG) <1:100 [facility]Go[facility] [id number] 10:23:00* Test Item Value Reference Range Interpretation Comme nts Bili Direct (test code = Bili Direct) 0.1 See_Comment [Automated messa ge] The system which generated this result transmitted reference range: <=0.3. The reference range was not used to interpret this result as normal/abnormal. [facility] [id number] 10:23:00* Test Item Value Reference Range Interpretation Comme nts Bili Indirect (test code = Bili Indirect) 0.3 See_Comment [Automated message] The system which generated this result transmitted reference range: <=1.0. The reference range was not used to interpret this result as normal/abnormal. [facility] HospitalXkcyflmKNQZHKBPJV2039-99-45 20:32:00* Test Item Value Reference Range Interpretation Comme nts Hep Bs Ab (test code = Hep Bs Ab) 451.9 [facility] IqrcknxJDWCCQUOZR3649-30-11 20:32:00* Test Item Value Reference Range Interpretation Comme nts Hep Bs Ag (test code = Hep Bs Ag) Negative *NA*(04/21/18 2:32 PM) [facility] [employer] [id number] 15:33:00* Test Item Value Reference Range Interpretation Comme nts ABO/Rh (test code = ABO/Rh) O POS [facility] [employer] [id number] 15:33:00* Test Item Value Reference Range Interpretation Comme nts Antibody Scrn (test code = Antibody Scrn) Negative (04/21/18 9:33 AM) [facility] IzudrvqIEVVUZFJEP8527-65-22 14:52:00* Test Item Value Reference Range Interpretation Comme nts MELVINA (test code = MELVINA) Negative (04/21/18 8 :52 AM) [facility] [employer] [id number] 09:13:00* Test Item Value Reference Range Interpretation Comme nts Lactic Acid Lvl (test code = Lactic Acid Lvl) 0.7 0.5-2.2 [facility] [employer] [id number] 09:13:00* Test Item Value Reference Range Interpretation Comme nts Procalcitonin Lvl (test code = Procalcitonin Lvl) 0.11 See_Comment [Autom ated message] The system which generated this result transmitted reference range: <=0.10. The reference range was not used to interpret this result as normal/abnormal. [facility] [id number] 09:13:00* Test Item Value Reference Range Interpretation Comme nts IgG Lvl (test code = IgG Lvl) [phone] [facility] [id number] 09:13:00* Test Item Value Reference Range Interpretation Comme nts IgM Lvl (test code = IgM Lvl) 286.0 60.0-263.0 [facility] [employer] - [id number] 03:09:00* Test Item Value Reference Range Interpretation Comme nts MRSA by PCR (test code = MRSA by PCR) Negative (04/20/18 9:09 PM) [facility] [employer] [id number] 03:09:00* Test Item Value Reference Range Interpretation Comme nts Bili Direct (test code = Bili Direct) 0.2 See_Comment [Automated messa ge] The system which generated this result transmitted reference range: <=0.3. The reference range was not used to interpret this result as normal/abnormal. [facility]2019-01-06 03:09:00* Test Item Value Reference Range Interpretation Comme nts Bili Indirect (test code = Bili Indirect) 0.4 See_Comment [Automated message] The system which generated this result transmitted reference range: <=1.0. The reference range was not used to interpret this result as normal/abnormal. [facility]2019-01-05 11:54:00* Test Item Value Reference Range Interpretation Comme nts Magnesium Lvl (test code = M agnesium Lvl) 2.1 1.8-2.4 [facility]2019-01-05 11:54:00* Test Item Value Reference Range Interpretation Comme nts eGFR (test code = eGFR) 146 [facility]2019-01-05 11:54:00* Test Item Value Reference Range Interpretation Comme nts Creatinine Lvl (test code = Creatinine Lvl) 0.46 0.50-1.40 [facility]2019-01-05 11:54:00* Test Item Value Reference Range Interpretation Comme nts Potassium Lvl (test code = P otassium Lvl) 4.0 3.5-5.1 [facility]2019-01-05 11:54:00* Test Item Value Reference Range Interpretation Comme nts Sodium Lvl (test code = Sodium Lvl) 132 135-145 [facility]2019-01-05 11:54:00* Test Item Value Reference Range Interpretation Comme nts Chloride Lvl (test code = Chloride Lvl) 99 95-109 [facility]2019-01-05 11:54:00* Test Item Value Reference Range Interpretation Comme nts Glucose Lvl (test code = Glucose Lvl) 103 70-99 [facility]2019-01-05 11:54:00* Test Item Value Reference Range Interpretation Comme nts BUN (test code = BUN) 9 7-22 [facility]2019-01-05 11:54:00* Test Item Value Reference Range Interpretation Comme nts Bili Total (test code = Bili Total) 0.4 0.2-1.3 [facility]2019-01-05 11:54:00* Test Item Value Reference Range Interpretation Comme nts Alk Phos (test code = Alk Phos) 108 39-136 [facility]2019-01-05 11:54:00* Test Item Value Reference Range Interpretation Comme nts AST (test code = AST) 86 See_Comment [A utomated message] The system which generated this result transmitted reference range: <=37. The reference range was not used to interpret this result as normal/abnormal. [facility]2019-01-05 11:54:00* Test Item Value Reference Range Interpretation Comme nts ALT (test code = ALT) 171 See_Comment [A utomated message] The system which generated this result transmitted reference range: <=65. The reference range was not used to interpret this result as normal/abnormal. [facility]2019-01-05 11:54:00* Test Item Value Reference Range Interpretation Comme nts Albumin Lvl (test code = Albumin Lvl) 2.7 3.5-5.0 [facility]2019-01-05 11:54:00* Test Item Value Reference Range Interpretation Comme nts CO2 (test code = CO2) 26 24-32 [facility]2019-01-05 11:54:00* Test Item Value Reference Range Interpretation Comme nts Total Protein (test code = T otal Protein) 8.6 6.4-8.4 [facility]2019-01-05 11:54:00* Test Item Value Reference Range Interpretation Comme nts Calcium Lvl (test code = Calcium Lvl) 8.9 8.5-10.5 [facility]2019-01-05 11:54:00* Test Item Value Reference Range Interpretation Comme nts Globulin (test code = Globulin) 5.9 2.7-4.2 [facility]2019-01-05 11:54:00* Test Item Value Reference Range Interpretation Comme nts A/G Ratio (test code = A/G Ratio) 0.5 1 0.7-1.6 [facility]2019-01-05 11:54:00* Test Item Value Reference Range Interpretation Comme nts AGAP (test code = AGAP) 11.0 10.0-20.0 [facility]2019-01-05 11:54:00* Test Item Value Reference Range Interpretation Comme nts B/C Ratio (test code = B/C Ratio) 20 1 6-25 [facility]2019-01-05 11:54:00* Test Item Value Reference Range Interpretation Comme nts Phosphorus (test code = Phosphorus) 5.1 2.5-4.5 [facility]azegvnPDOLCRYBTD7994[facility] 11:54:00* Test Item Value Reference Range Interpretation Comme nts Hct (test code = Hct) 37.0 36.0-48.0 [facility] HendersonFsdzclgEAXVJHDODG3982-21-83 11:54:00* Test Item Value Reference Range Interpretation Comme nts Hgb (test code = Hgb) 12.7 12.0-16.0 [facility] HendersonHhibcauBLTSDNWRHY9620-33-36 11:54:00* Test Item Value Reference Range Interpretation Comme nts MCHC (test code = MCHC) 34.4 32.0-36.0 [facility] HendersonAucdlvbMIJJJFDVPQ1451-67-83 11:54:00* Test Item Value Reference Range Interpretation Comme nts MCV (test code = MCV) 89.3 80.0-98.0 [facility] HendersonKphjfjpTQWROMWFVE9803-00-03 11:54:00* Test Item Value Reference Range Interpretation Comme nts RDW (test code = RDW) 13.3 11.5-14.5 [facility] HendersonScssfuwQVFQTECOHD8516-31-87 11:54:00* Test Item Value Reference Range Interpretation Comme nts MCH (test code = MCH) 30.7 pg 27.0-31.0 [facility] HendersonJumnphuDMAWQYLVKC0815-09-36 11:54:00* Test Item Value Reference Range Interpretation Comme nts RBC (test code = RBC) 4.15 4.20-5.40 [facility] HendersonAgwwzrgLIUTLCTYRW2861-00-50 11:54:00* Test Item Value Reference Range Interpretation Comme nts WBC (test code = WBC) 10.1 3.7-10.4 [facility] HendersonYibvjoqJVNTCNMXXB4897-66-71 11:54:00* Test Item Value Reference Range Interpretation Comme nts Platelet (test code = Platelet) 273 133-450 [facility] HendersonDkjezggTEMDIJROBC8523-71-23 11:54:00* Test Item Value Reference Range Interpretation Comme nts MPV (test code = MPV) 6.8 7.4-10.4 [facility]DecsjzhEKLOSGXLVA8612-88-78 11:54:00* Test Item Value Reference Range Interpretation Comme nts Monocytes # (test code = Monocytes #) 1.2 See_Comment [Automated messa ge] The system which generated this result transmitted reference range: <=0.8. The reference range was not used to interpret this result as normal/abnormal. [facility] HendersonNiklgcmKIXCAEXQCF5297-82-04 11:54:00* Test Item Value Reference Range Interpretation Comme nts Neutrophils # (test code = N eutrophils #) 6.2 1.5-8.1 [facility] HendersonIzaxyhuGOTFTHRFZQ4270-65-23 11:54:00* Test Item Value Reference Range Interpretation Comme nts Lymphocytes # (test code = L ymphocytes #) 2.7 1.0-5.5 [facility] HendersonBbzeaiwFMMGYDCUQW3044-76-07 11:54:00* Test Item Value Reference Range Interpretation Comme nts Basophils (test code = Basophils) 0.3 See_Comment [Automated messa ge] The system which generated this result transmitted reference range: <=1.0. The reference range was not used to interpret this result as normal/abnormal. [facility] HendersonKzcljkjSWIRJMNMQZ6418-07-38 11:54:00* Test Item Value Reference Range Interpretation Comme nts Eosinophils (test code = Eosinophils) 0.1 See_Comment [Automated messa ge] The system which generated this result transmitted reference range: <=4.0. The reference range was not used to interpret this result as normal/abnormal. [facility] HendersonNttojjkTUOAQGXJKP7638-63-83 11:54:00* Test Item Value Reference Range Interpretation Comme nts Monocytes (test code = Monocytes) 11.5 2.0-12.0 [facility] HendersonLzdakyjNNIGCATVRN4603-16-52 11:54:00* Test Item Value Reference Range Interpretation Comme nts Lymphocytes (test code = Lymphocytes) 26.7 20.0-40.0 [facility] HendersonCfbxedrLCTOWYUNXF9481-06-86 11:54:00* Test Item Value Reference Range Interpretation Comme nts Segs (test code = Segs) 61.4 45.0-75.0 [facility] SOFYDJI9657-53-98 11:54:00* Test Item Value Reference Range Interpretation Comme nts Ca Norm WB (test code = Ca Norm WB) 1.13 1.05-1.25 [facility]annPAR[facility] CZYAMPD4415-10-34 11:54:00* Test Item Value Reference Range Interpretation Comme nts Ca Ion WB (test code = Ca Ion WB) 1.11 1.05-1.25 [facility] HospitalVfrfoekKUYRYUBSAA1476-81-30 22:45:00* Test Item Value Reference Range Interpretation Comme nts MELVINA (test code = MELVINA) Negative (04/19/18 4 :45 PM) [facility] [id number] 09:49:00* Test Item Value Reference Range Interpretation Comme nts Ferritin Lvl (test code = Ferritin Lvl) 134 5-204 [facility] [id number] 09:49:00* Test Item Value Reference Range Interpretation Comme nts UIBC (test code = UIBC) 206 110-370 [facility] MLQQT2400-27-18 09:49:00* Test Item Value Reference Range Interpretation Comme nts % Satur Fe (test code = % Satur Fe) 10 12-57 [facility] UMDUV2595-82-23 09:49:00* Test Item Value Reference Range Interpretation Comme nts TIBC (test code = TIBC) 230 228-428 [facility] NDWYQ7961-97-10 09:49:00* Test Item Value Reference Range Interpretation Comme nts Iron (test code = Iron) 24 30-160 [facility]annCARDIAC VDWILEM0389-34-56 09:49:00* Test Item Value Reference Range Interpretation Comme nts BNP (test code = BNP) 5 [facility]annCHEM TFRHA2437-74-82 09:49:00* Test Item Value Reference Range Interpretation Comme nts Magnesium Lvl (test code = M agnesium Lvl) 2.1 1.8-2.4 [facility]annCHEM [id number] 09:49:00* Test Item Value Reference Range Interpretation Comme nts Phosphorus (test code = Phosphorus) 3.8 2.5-4.5 [facility]annCHEM [id number] 09:49:00* Test Item Value Reference Range Interpretation Comme nts eGFR (test code = eGFR) 146 [facility]OWMCAROL[facility] MOUNTAINMONYE6303-86-72 09:49:00* Test Item Value Reference Range Interpretation Comme nts Bili Total (test code = Bili Total) 0.4 0.2-1.3 [facility]2019-01-04 09:49:00* Test Item Value Reference Range Interpretation Comme nts Alk Phos (test code = Alk Phos) 90 39-136 [facility]2019-01-04 09:49:00* Test Item Value Reference Range Interpretation Comme nts CO2 (test code = CO2) 29 24-32 [facility]OWMCAROL[facility] K[facility] MOUNTAINDXIOI5644-39-60 09:49:00* Test Item Value Reference Range Interpretation Comme nts AST (test code = AST) 146 See_Comment [A utomated message] The system which generated this result transmitted reference range: <=37. The reference range was not used to interpret this result as normal/abnormal. [facility]2019-01-04 09:49:00* Test Item Value Reference Range Interpretation Comme nts Total Protein (test code = T otal Protein) 8.0 6.4-8.4 [facility]OWMCAROLIN[facility] K[facility] MOUNTAINWITOE7373-95-44 09:49:00* Test Item Value Reference Range Interpretation Comme nts Albumin Lvl (test code = Albumin Lvl) 2.5 3.5-5.0 [facility]OWMCAROL[facility] K[facility] MOUNTAINSEILH8722-29-90 09:49:00* Test Item Value Reference Range Interpretation Comme nts ALT (test code = ALT) 192 See_Comment [A utomated message] The system which generated this result transmitted reference range: <=65. The reference range was not used to interpret this result as normal/abnormal. [facility]OWMCAROL[facility] K[facility] MOUNTAINEJLLN5507-65-14 09:49:00* Test Item Value Reference Range Interpretation Comme nts Calcium Lvl (test code = Calcium Lvl) 8.3 8.5-10.5 [facility]2019-01-04 09:49:00* Test Item Value Reference Range Interpretation Comme nts Chloride Lvl (test code = Chloride Lvl) 101 95-109 [facility]OWMCAROL[facility] K[facility] MOUNTAINEZTDW7453-22-56 09:49:00* Test Item Value Reference Range Interpretation Comme nts Sodium Lvl (test code = Sodium Lvl) 135 135-145 [facility]2019-01-04 09:49:00* Test Item Value Reference Range Interpretation Comme nts Potassium Lvl (test code = P otassium Lvl) 3.6 3.5-5.1 [facility]2019-01-04 09:49:00* Test Item Value Reference Range Interpretation Comme nts Glucose Lvl (test code = Glucose Lvl) 100 70-99 [facility]2019-01-04 09:49:00* Test Item Value Reference Range Interpretation Comme nts BUN (test code = BUN) 7 7-22 [facility]2019-01-04 09:49:00* Test Item Value Reference Range Interpretation Comme nts Creatinine Lvl (test code = Creatinine Lvl) 0.45 0.50-1.40 [facility]2019-01-04 09:49:00* Test Item Value Reference Range Interpretation Comme nts A/G Ratio (test code = A/G Ratio) 0.5 1 0.7-1.6 [facility]2019-01-04 09:49:00* Test Item Value Reference Range Interpretation Comme nts Globulin (test code = Globulin) 5.5 2.7-4.2 [facility]2019-01-04 09:49:00* Test Item Value Reference Range Interpretation Comme nts AGAP (test code = AGAP) 8.6 10.0-20.0 [facility]2019-01-04 09:49:00* Test Item Value Reference Range Interpretation Comme nts B/C Ratio (test code = B/C Ratio) 16 1 6-25 [facility]DqolafxVMBOAGCFZL6417-84-29 09:49:00* Test Item Value Reference Range Interpretation Comme nts Monocytes # (test code = Monocytes #) 0.7 See_Comment [Automated messa ge] The system which generated this result transmitted reference range: <=0.8. The reference range was not used to interpret this result as normal/abnormal. [facility] HendersonIrzyxyiVBBNIXFVAO4175-09-69 09:49:00* Test Item Value Reference Range Interpretation Comme nts Lymphocytes # (test code = L ymphocytes #) 3.2 1.0-5.5 [facility] HendersonPnpglqhZCWTRILJMZ1280-36-98 09:49:00* Test Item Value Reference Range Interpretation Comme nts Eosinophils # (test code = Eosinophils #) 0.1 See_Comment [Automated mess age] The system which generated this result transmitted reference range: <=0.5. The reference range was not used to interpret this result as normal/abnormal. [facility] HendersonLgvwzlxOQCTWIKIIZ4529-35-86 09:49:00* Test Item Value Reference Range Interpretation Comme nts Neutrophils # (test code = N eutrophils #) 2.6 1.5-8.1 [facility] HendersonHiscpgaLFALTABBXL0553-83-66 09:49:00* Test Item Value Reference Range Interpretation Comme nts Lymphocytes (test code = Lymphocytes) 47.8 20.0-40.0 [facility] HendersonTpzypjaEPRMISRVJX0285-27-04 09:49:00* Test Item Value Reference Range Interpretation Comme nts Segs (test code = Segs) 39.4 45.0-75.0 [facility] HendersonYihtawlIPAKWUHUJC4009-02-03 09:49:00* Test Item Value Reference Range Interpretation Comme nts Basophils (test code = Basophils) 0.7 See_Comment [Automated messa ge] The system which generated this result transmitted reference range: <=1.0. The reference range was not used to interpret this result as normal/abnormal. [facility] HendersonMixaovtIQZLCUNJTB5809-85-97 09:49:00* Test Item Value Reference Range Interpretation Comme nts Eosinophils (test code = Eosinophils) 1.1 See_Comment [Automated messa ge] The system which generated this result transmitted reference range: <=4.0. The reference range was not used to interpret this result as normal/abnormal. [facility] HendersonJvocbgrIPSYPNBSGJ6046-10-65 09:49:00* Test Item Value Reference Range Interpretation Comme nts Monocytes (test code = Monocytes) 11.0 2.0-12.0 [facility] HendersonRcwdbmyAXSOLWYPKS4890-25-67 09:49:00* Test Item Value Reference Range Interpretation Comme nts MPV (test code = MPV) 6.7 7.4-10.4 [facility] HendersonDalncgvLZREVWRARN7857-88-62 09:49:00* Test Item Value Reference Range Interpretation Comme nts Platelet (test code = Platelet) 204 133-450 [facility] HendersonHuvhcunGOTPQHHTSN6312-62-88 09:49:00* Test Item Value Reference Range Interpretation Comme nts RBC (test code = RBC) 3.89 4.20-5.40 [facility] HendersonDjldkamXOKTHGSNDD6272-91-71 09:49:00* Test Item Value Reference Range Interpretation Comme nts Hgb (test code = Hgb) 12.0 12.0-16.0 [facility] HendersonQmeyukwOCLAEBVZXO5409-04-64 09:49:00* Test Item Value Reference Range Interpretation Comme nts WBC (test code = WBC) 6.6 3.7-10.4 [facility] HendersonTuatrhsSSTJGVKSOQ6494-17-35 09:49:00* Test Item Value Reference Range Interpretation Comme nts RDW (test code = RDW) 13.3 11.5-14.5 [facility] HendersonHpwdiqbIIDAKXBFRE5582-36-40 09:49:00* Test Item Value Reference Range Interpretation Comme nts MCH (test code = MCH) 31.0 pg 27.0-31.0 [facility] HendersonVspoytbVRXDFCNJMA4975-32-80 09:49:00* Test Item Value Reference Range Interpretation Comme nts MCHC (test code = MCHC) 34.6 32.0-36.0 [facility] HendersonLtotbviLIVDXVNJZP4780-11-40 09:49:00* Test Item Value Reference Range Interpretation Comme nts Hct (test code = Hct) 34.8 36.0-48.0 [facility] HendersonXvoimdaDAMAUPRIAG3769-06-14 09:49:00* Test Item Value Reference Range Interpretation Comme nts MCV (test code = MCV) 89.7 80.0-98.0 [facility] HendersonRqdybfoXSZIIDYCFE2277-14-43 09:49:00* Test Item Value Reference Range Interpretation Comme nts PT (test code = PT) 13.9 s 12.0-14.7 [facility] HendersonCildnpsPBPFTPJKDB9603-97-99 09:49:00* Test Item Value Reference Range Interpretation Comme nts INR (test code = INR) 1.09 1 0.85-1.17 [facility]UfehkhjQMUTTCASUG4670-21-79 09:49:00* Test Item Value Reference Range Interpretation Comme nts IgE Lvl (test code = IgE Lvl) 70.3 10.0-100.0 [facility] HospitalRutnkswTYDPETRQRH4475-04-50 09:49:00* Test Item Value Reference Range Interpretation Comme nts Hep B Core IgM (test code = Hep B Core IgM) Negative *NA*(04/19/18 3:49 AM) [facility] HospitalCylekryTEGWBGFJQS1352-43-75 09:49:00* Test Item Value Reference Range Interpretation Comme nts Hep C Ab (test code = Hep C Ab) Negative *NA*(04/19/18 3:49 AM) [facility] HospitalBzxbpxqTMERCDGKCJ3518-40-03 09:49:00* Test Item Value Reference Range Interpretation Comme nts Hep Bs Ag (test code = Hep Bs Ag) Negative *NA*(04/19/18 3:49 AM) [facility] HospitalCzyxedeWBYEJMGNYP6326-52-30 09:49:00* Test Item Value Reference Range Interpretation Comme nts Hep A IgM (test code = Hep A IgM) Negative *NA*(04/19/18 3:49 AM) [facility] HospitalAtkfyfbXTXSDBWDEX0052-55-32 09:49:00* Test Item Value Reference Range Interpretation Comme nts CERULOPLASMIN (test code = CERULOPLASMIN) 26 20-60 [facility]2019-01-04 09:49:00* Test Item Value Reference Range Interpretation Comme nts AFP (test code = AFP) 1.6 See_Comment [A utomated message] The system which generated this result transmitted reference range: <=11.0. The reference range was not used to interpret this result as normal/abnormal. [facility] HospitalFzqlnlmILZJKIFCEX1670-84-11 09:41:00* Test Item Value Reference Range Interpretation Comme nts AMA Ab Scr (test code = AMA Ab Scr) Negative (04/19/18 3:41 AM) [facility] HospitalByjnuqsESSRXFYYPF3890-51-60 09:41:00* Test Item Value Reference Range Interpretation Comme nts A-1-AT Pheno (test code = A-1-AT Pheno) MM [facility] HospitalTfmlwbnSEEBZRFRAQ7605-90-57 09:41:00* Test Item Value Reference Range Interpretation Comme nts A-1-AT (Sendout) (test code = A-1-AT (Sendout)) 259 90-200 [facility] HospitalXvmpjtuMHOQYXVITO2257-25-99 09:41:00* Test Item Value Reference Range Interpretation Comme nts LIVER KIDNEY MICROSOME ABS. (test code = LIVER KIDNEY MICROSOME ABS.) 1.2 See_Comment [Automate d message] The system which generated this result transmitted reference range: <=20.0. The reference range was not used to interpret this result as normal/abnormal. [facility] HospitalJjfpdtkMAPZIROXBU5177-04-12 09:41:00* Test Item Value Reference Range Interpretation Comme nts SMA Screen (test code = SMA Screen) Negative (04/19/18 3:41 AM) [facility] HospitalBlnzjgqDGNXQVGSNH0717-86-71 09:41:00* Test Item Value Reference Range Interpretation Comme nts MELVINA (test code = MELVINA) Negative (04/19/18 3 :41 AM) [facility] HospitalannPARATHYROID YFJNSIK0162-41-58 09:41:00* Test Item Value Reference Range Interpretation Comme nts Ca Norm WB (test code = Ca Norm WB) 1.12 1.05-1.25 [facility]annPARATHYROID VZEWMLH0724-73-44 09:41:00* Test Item Value Reference Range Interpretation Comme nts Ca Ion WB (test code = Ca Ion WB) 1.10 1.05-1.25 [facility] HospitalAetuuhoNLNWROKIEA9619-17-30 17:38:00* Test Item Value Reference Range Interpretation Comme nts Hep Bs Ag (test code = Hep Bs Ag) Negative *NA*(04/18/18 11:38 AM) [facility] HospitalBcdtkbgRAJRCWGOZW4051-99-45 17:38:00* Test Item Value Reference Range Interpretation Comme nts Hep C Ab (test code = Hep C Ab) Negative *NA*(04/18/18 11:38 AM) [facility] HospitalYebegvvDTMKAPGGPI3446-62-46 17:38:00* Test Item Value Reference Range Interpretation Comme nts Hep A IgM (test code = Hep A IgM) Negative *NA*(04/18/18 11:38 AM) [facility] HospitalMffznyeOXJAZJIFQK0034-75-85 17:38:00* Test Item Value Reference Range Interpretation Comme nts Hep B Core IgM (test code = Hep B Core IgM) Negative *NA*(04/18/18 11:38 AM) [facility]annCHEM ZEGGW5892-79-70 10:16:00* Test Item Value Reference Range Interpretation Comme nts Phosphorus (test code = Phosphorus) 3.6 2.5-4.5 [facility]annCHEM IMOBK4164-12-93 10:16:00* Test Item Value Reference Range Interpretation Comme nts Magnesium Lvl (test code = M agnesium Lvl) 2.1 1.8-2.4 [facility]2019-01-03 10:16:00* Test Item Value Reference Range Interpretation Comme nts eGFR (test code = eGFR) 156 [facility]2019-01-03 10:16:00* Test Item Value Reference Range Interpretation Comme nts CO2 (test code = CO2) 28 24-32 [facility]2019-01-03 10:16:00* Test Item Value Reference Range Interpretation Comme nts Chloride Lvl (test code = Chloride Lvl) 100 95-109 [facility]2019-01-03 10:16:00* Test Item Value Reference Range Interpretation Comme nts Potassium Lvl (test code = P otassium Lvl) 4.2 3.5-5.1 [facility]2019-01-03 10:16:00* Test Item Value Reference Range Interpretation Comme nts Sodium Lvl (test code = Sodium Lvl) 134 135-145 [facility]2019-01-03 10:16:00* Test Item Value Reference Range Interpretation Comme nts Creatinine Lvl (test code = Creatinine Lvl) 0.37 0.50-1.40 [facility]2019-01-03 10:16:00* Test Item Value Reference Range Interpretation Comme nts BUN (test code = BUN) 5 7-22 [facility]2019-01-03 10:16:00* Test Item Value Reference Range Interpretation Comme nts Glucose Lvl (test code = Glucose Lvl) 119 70-99 [facility]2019-01-03 10:16:00* Test Item Value Reference Range Interpretation Comme nts Calcium Lvl (test code = Calcium Lvl) 8.2 8.5-10.5 [facility]2019-01-03 10:16:00* Test Item Value Reference Range Interpretation Comme nts Bili Total (test code = Bili Total) 0.3 0.2-1.3 [facility]2019-01-03 10:16:00* Test Item Value Reference Range Interpretation Comme nts Alk Phos (test code = Alk Phos) 89 39-136 [facility]2019-01-03 10:16:00* Test Item Value Reference Range Interpretation Comme nts ALT (test code = ALT) 270 See_Comment [A utomated message] The system which generated this result transmitted reference range: <=65. The reference range was not used to interpret this result as normal/abnormal. [facility]2019-01-03 10:16:00* Test Item Value Reference Range Interpretation Comme nts AST (test code = AST) 266 See_Comment [A utomated message] The system which generated this result transmitted reference range: <=37. The reference range was not used to interpret this result as normal/abnormal. [facility]2019-01-03 10:16:00* Test Item Value Reference Range Interpretation Comme nts Total Protein (test code = T otal Protein) 8.1 6.4-8.4 [facility]2019-01-03 10:16:00* Test Item Value Reference Range Interpretation Comme nts Albumin Lvl (test code = Albumin Lvl) 2.8 3.5-5.0 [facility]2019-01-03 10:16:00* Test Item Value Reference Range Interpretation Comme nts A/G Ratio (test code = A/G Ratio) 0.5 1 0.7-1.6 [facility]2019-01-03 10:16:00* Test Item Value Reference Range Interpretation Comme nts B/C Ratio (test code = B/C Ratio) 14 1 6-25 [facility]2019-01-03 10:16:00* Test Item Value Reference Range Interpretation Comme nts AGAP (test code = AGAP) 10.2 10.0-20.0 [facility]2019-01-03 10:16:00* Test Item Value Reference Range Interpretation Comme nts Globulin (test code = Globulin) 5.3 2.7-4.2 [facility]APACX[facility]ZUFF8859-82-37 10:16:00* Test Item Value Reference Range Interpretation Comme nts RBC (test code = RBC) 4.17 4.20-5.40 [facility]IbhwbxjKHMGKHSXJR9279-46-80 10:16:00* Test Item Value Reference Range Interpretation Comme nts Hct (test code = Hct) 37.3 36.0-48.0 [facility]EpyfmolEYXRZGVSIQ8858-75-27 10:16:00* Test Item Value Reference Range Interpretation Comme nts MCV (test code = MCV) 89.5 80.0-98.0 [facility]WfrepqrZMBVBWQJAX7889-88-53 10:16:00* Test Item Value Reference Range Interpretation Comme nts WBC (test code = WBC) 8.1 3.7-10.4 [facility]MqzzvegFPGWAYNZIP5806-79-06 10:16:00* Test Item Value Reference Range Interpretation Comme nts Hgb (test code = Hgb) 12.7 12.0-16.0 [facility] HendersonOgyiovoIQWFLFWBQV7183-60-43 10:16:00* Test Item Value Reference Range Interpretation Comme nts Platelet (test code = Platelet) 182 133-450 [facility] HendersonBpmnlzlMNEZAPZNLF8500-81-26 10:16:00* Test Item Value Reference Range Interpretation Comme nts MPV (test code = MPV) 6.7 7.4-10.4 [facility]MbjyexqOUMCHWZERG2416-90-10 10:16:00* Test Item Value Reference Range Interpretation Comme nts RDW (test code = RDW) 13.4 11.5-14.5 [facility] HendersonHjwykycSRUOLVERDB5288-74-41 10:16:00* Test Item Value Reference Range Interpretation Comme nts MCH (test code = MCH) 30.4 pg 27.0-31.0 [facility] HendersonLocptxlRLDCEXEITQ8063-47-32 10:16:00* Test Item Value Reference Range Interpretation Comme nts MCHC (test code = MCHC) 34.0 32.0-36.0 [facility] HendersonZatggyuFNSZWRURLZ3724-65-70 10:16:00* Test Item Value Reference Range Interpretation Comme nts Monocytes # (test code = Monocytes #) 0.9 See_Comment [Automated messa ge] The system which generated this result transmitted reference range: <=0.8. The reference range was not used to interpret this result as normal/abnormal. [facility]PwijwpwGPOOCSQWMJ9338-07-46 10:16:00* Test Item Value Reference Range Interpretation Comme nts Neutrophils # (test code = N eutrophils #) 3.3 1.5-8.1 [facility] HendersonGnzlmixXIKMGITLVC4198-15-87 10:16:00* Test Item Value Reference Range Interpretation Comme nts Eosinophils (test code = Eosinophils) 0.5 See_Comment [Automated messa ge] The system which generated this result transmitted reference range: <=4.0. The reference range was not used to interpret this result as normal/abnormal. [facility] HendersonQqhykcgBJLPSPYAKQ5666-57-33 10:16:00* Test Item Value Reference Range Interpretation Comme nts Monocytes (test code = Monocytes) 11.7 2.0-12.0 [facility] HendersonJfjyywfTFFOZKUGNR0184-69-01 10:16:00* Test Item Value Reference Range Interpretation Comme nts Basophils (test code = Basophils) 0.6 See_Comment [Automated messa ge] The system which generated this result transmitted reference range: <=1.0. The reference range was not used to interpret this result as normal/abnormal. [facility] HendersonZmhujjvONUVKZHALN7544-80-40 10:16:00* Test Item Value Reference Range Interpretation Comme nts Segs (test code = Segs) 40.2 45.0-75.0 [facility] HendersonRbagfliUCXDJJYBPV7231-11-99 10:16:00* Test Item Value Reference Range Interpretation Comme nts Lymphocytes (test code = Lymphocytes) 47.0 20.0-40.0 [facility] HendersonEorhmtsOTEORAWBRL9128-47-04 10:16:00* Test Item Value Reference Range Interpretation Comme nts Lymphocytes # (test code = L ymphocytes #) 3.8 1.0-5.5 [facility] QPITJZB3455-41-10 10:16:00* Test Item Value Reference Range Interpretation Comme nts Ca Norm WB (test code = Ca Norm WB) 1.10 1.05-1.25 [facility] MFXAPGO6519-12-92 10:16:00* Test Item Value Reference Range Interpretation Comme nts Ca Ion WB (test code = Ca Ion WB) 1.12 1.05-1.25 [facility] Imerrq1300-26-72 16:30:00* Test Item Value Reference Range Interpretation Comme nts Gram Stain Report (test code = Gram Stain Report) [facility] St[facility] w/Gram [id number] 16:30:00* Test Item Value Reference Range Interpretation Comme nts Culture: Respiratory w/Gram Stain (test code = Culture: Respiratory w/Gram Stain) Many Haemophilus influenzae , Beta Lactamase Negative Normal Respiratory Mayte Isolated [facility]2019-01-02 08:56:00* Test Item Value Reference Range Interpretation Comme nts Bili Indirect (test code = Bili Indirect) 0.2 See_Comment [Automated message] The system which generated this result transmitted reference range: <=1.0. The reference range was not used to interpret this result as normal/abnormal. [facility]2019-01-02 08:56:00* Test Item Value Reference Range Interpretation Comme nts Bili Direct (test code = Bili Direct) 0.1 See_Comment [Automated messa ge] The system which generated this result transmitted reference range: <=0.3. The reference range was not used to interpret this result as normal/abnormal. [facility]2019-01-01 10:18:00* Test Item Value Reference Range Interpretation Comme nts Bili Indirect (test code = Bili Indirect) 0.2 See_Comment [Automated message] The system which generated this result transmitted reference range: <=1.0. The reference range was not used to interpret this result as normal/abnormal. [facility]2019-01-01 10:18:00* Test Item Value Reference Range Interpretation Comme nts Bili Direct (test code = Bili Direct) 0.1 See_Comment [Automated messa ge] The system which generated this result transmitted reference range: <=0.3. The reference range was not used to interpret this result as normal/abnormal. [facility]XypgdfeXQDLHSSGGE1276-83-76 10:18:00* Test Item Value Reference Range Interpretation Comme nts Plt Morph (test code = Plt Morph) Normal (04/16/18 4:18 AM) [facility]PdphnfePVYTACFZEJ0365-34-14 10:18:00* Test Item Value Reference Range Interpretation Comme nts RBC Morph (test code = RBC Morph) Normal (04/16/18 4:18 AM) [facility] HospitalCARDIAC IFBWZIQ2352-76-70 21:46:00* Test Item Value Reference Range Interpretation Comme nts Total CK (test code = Total CK) 34 12-191 [facility] HospitalRijsxizTBUJLIXHBZ6173-96-49 21:46:00* Test Item Value Reference Range Interpretation Comme nts FLORIN-1 Ab (test code = FLORIN-1 Ab) no gt [facility] HospitalCmtuhpgXGVTNBTUGV6908-36-67 09:45:00* Test Item Value Reference Range Interpretation Comme nts Basophils # (test code = Basophils #) 0.1 See_Comment [Automated messa ge] The system which generated this result transmitted reference range: <=0.2. The reference range was not used to interpret this result as normal/abnormal. [facility] [id number] 20:59:00* Test Item Value Reference Range Interpretation Comme nts Glucose CSF (test code = Glucose CSF) 72 45-80 [facility] [id number] 20:59:00* Test Item Value Reference Range Interpretation Comme nts Protein CSF (test code = Protein CSF) 50 15-45 [facility] AXCLVKNVJP4405-58-20 20:59:00* Test Item Value Reference Range Interpretation Comme nts Source HSV (test code = Source HSV) Cerebral Spinal Fluid [facility] WVZSIODRDT8796-11-82 20:59:00* Test Item Value Reference Range Interpretation Comme nts HSV 2 by PCR (test code = HSV 2 by PCR) Negative (04/14/18 2:59 PM) [facility] KSOLNCROMZ6911-32-72 20:59:00* Test Item Value Reference Range Interpretation Comme nts HSV 1 by PCR (test code = HSV 1 by PCR) Negative (04/14/18 2:59 PM) [facility]BACT[facility] - [id number] 20:47:00* Test Item Value Reference Range Interpretation Comme nts Source Strep (test code = Source Strep) Cerebral Spinal Fluid [facility] HospitalBACTERIAL - [id number] 20:47:00* Test Item Value Reference Range Interpretation Comme nts Strep pneumoniae Ag (test code = Strep pneumoniae Ag) Negative (04/14/18 2:47 PM) [facility] GLBYUY1492-71-59 20:47:00* Test Item Value Reference Range Interpretation Comme nts Color CSF (test code = Color CSF) Colorless (04/14/18 2:47 PM) [facility] [id number] 20:47:00* Test Item Value Reference Range Interpretation Comme nts Supernat CSF (test code = Supernat CSF) Colorless (04/14/18 2:47 PM) [facility]2018-12-30 20:47:00* Test Item Value Reference Range Interpretation Comme nts Clarity CSF (test code = Clarity CSF) Clear (04/14/18 2:47 PM) [facility]2018-12-30 20:47:00* Test Item Value Reference Range Interpretation Comme nts Tube Num CSF (test code = Tube Num CSF) [address] [facility]2018-12-30 20:47:00* Test Item Value Reference Range Interpretation Comme nts RBC CSF (test code = RBC CSF) 69 See_Comment [Automated messa ge] The system which generated this result transmitted reference range: <=03. The reference range was not used to interpret this result as normal/abnormal. [facility]2018-12-30 20:47:00* Test Item Value Reference Range Interpretation Comme nts Nucleated Cells CSF (test code = Nucleated Cells CSF) 2 See_Comment [Automated messa ge] The system which generated this result transmitted reference range: <=53. The reference range was not used to interpret this result as normal/abnormal. [facility]2018-12-30 20:47:00* Test Item Value Reference Range Interpretation Comme nts Nucleated Cells CSF (test code = Nucleated Cells CSF) 2 See_Comment [Automated messa ge] The system which generated this result transmitted reference range: <=53. The reference range was not used to interpret this result as normal/abnormal. [facility]2018-12-30 20:47:00* Test Item Value Reference Range Interpretation Comme nts RBC CSF (test code = RBC CSF) 1 See_Comment [Automated messa ge] The system which generated this result transmitted reference range: <=03. The reference range was not used to interpret this result as normal/abnormal. [facility]2018-12-30 20:47:00* Test Item Value Reference Range Interpretation Comme nts Clarity CSF (test code = Clarity CSF) Clear (04/14/18 2:47 PM) [facility]2018-12-30 20:47:00* Test Item Value Reference Range Interpretation Comme nts Supernat CSF (test code = Supernat CSF) Colorless (04/14/18 2:47 PM) [facility]2018-12-30 20:47:00* Test Item Value Reference Range Interpretation Comme nts Tube Num CSF (test code = Tube Num CSF) 4 1 [facility]annB[facility] [id number] 20:47:00* Test Item Value Reference Range Interpretation Comme nts Color CSF (test code = Color CSF) Colorless (04/14/18 2:47 PM) [facility]annFUNGAL - [id number] 20:47:00* Test Item Value Reference Range Interpretation Comme nts Crypto Ag CSF (test code = Crypto Ag CSF) Negative (04/14/18 2:47 PM) [facility] LcqjbznIAOQVKHTXJ5508-76-32 20:47:00* Test Item Value Reference Range Interpretation Comme nts VDRL Scr CSF (test code = VDRL Scr CSF) Non Reactive (04/14/18 2:47 PM) [facility] HospitalKirivaoGRAUZERDRE5289-36-24 20:47:00* Test Item Value Reference Range Interpretation Comme nts IgG Lvl CSF (test code = IgG Lvl CSF) 4.5 2.0-4.0 [facility] GiiloniBJKOWMNQAV8394-32-04 20:47:00* Test Item Value Reference Range Interpretation Comme nts Alb CSF (CPE) (test code = A lb CSF (CPE)) 39.4 14.0-25.0 [facility] GwzujtzRZEFQPLSVD8009-92-27 20:47:00* Test Item Value Reference Range Interpretation Comme nts IgG Index (test code = IgG Index) 0.5 0.3-0.7 [facility] HospitalPvgboqoWLZWBWPRFJ5833-66-02 20:47:00* Test Item Value Reference Range Interpretation Comme nts Alb (CPE) (test code = Alb (CPE)) 3600.0 3400.0-5000.0 [facility] HospitalEduxiwsGCMWESXDMV0679-16-71 20:47:00* Test Item Value Reference Range Interpretation Comme nts IgG (CPE) (test code = IgG (CPE)) 162.729.2478 [facility] HospitalannMOLECULAR EZGJQLEEZE2628-70-71 20:47:00* Test Item Value Reference Range Interpretation Comme nts VZV PCR (test code = VZV PCR) Negative (04/14/18 2:47 PM) [facility] HospitalannMOLECULAR ANLFRMUFIS7271-07-48 20:47:00* Test Item Value Reference Range Interpretation Comme nts Source VZV (test code = Source VZV) Cerebral Spinal Fluid [facility] HospitalVIRAL - [id number] 20:47:00* Test Item Value Reference Range Interpretation Comme nts Enterovirus PCR CSF (test code = Enterovirus PCR CSF) Negative (04/14/18 2:47 PM) [facility] HospitalGram Stain Qkysqo8544-28-89 20:47:00* Test Item Value Reference Range Interpretation Comme nts Gram Stain Report (test code = Gram Stain Report) Gram St[facility] w/Gram [id number] 20:47:00* Test Item Value Reference Range Interpretation Comme nts Culture: CSF w/Gram Stain (t est code = Culture: CSF w/Gram Stain) No Growth [facility] [id number] 18:07:00* Test Item Value Reference Range Interpretation Comme nts Folate Lvl (test code = Folate Lvl) 9.6 [facility] [id number] 18:07:00* Test Item Value Reference Range Interpretation Comme nts Vitamin B12 Lvl (test code = Vitamin B12 Lvl) [phone] [facility] HospitalCHEM [id number] 18:07:00* Test Item Value Reference Range Interpretation Comme nts GQ1b Ab IgG (test code = GQ1b Ab IgG) <1:100 [facility]xdeyicGYFEQSHJUL5281-86-30 18:07:00* Test Item Value Reference Range Interpretation Comme nts Sed Rate (test code = Sed Rate) 3 See_Comment [Automated messa ge] The system which generated this result transmitted reference range: <=20. The reference range was not used to interpret this result as normal/abnormal. [facility]McvhfiuDHRJNUQZXQ6268-66-68 18:07:00* Test Item Value Reference Range Interpretation Comme nts PTT (test code = PTT) 33.8 s 22.9-35.8 [facility]KvybynkVHSVHMZWYK0053-64-08 18:07:00* Test Item Value Reference Range Interpretation Comme nts INR (test code = INR) 1.23 1 0.85-1.17 [facility] HospitalZkbsvvhMGPYVTZMKB6900-09-23 18:07:00* Test Item Value Reference Range Interpretation Comme nts PT (test code = PT) 15.3 s 12.0-14.7 [facility] HospitalWxiuinoDYXEULICON1336-82-54 18:07:00* Test Item Value Reference Range Interpretation Comme nts C-REACTIVE PROTEIN (test cod e = C-REACTIVE PROTEIN) 3.8 [facility] HospitalCejsoceDOGKUKUAFN1058-45-99 18:07:00* Test Item Value Reference Range Interpretation Comme nts Alpha 1 % (test code = Alpha 1 %) 6.5 2.8-4.9 [facility] HospitalDmutociWKHQOPCVKQ3871-72-07 18:07:00* Test Item Value Reference Range Interpretation Comme nts Alpha 2 % (test code = Alpha 2 %) 10.8 7.0-11.9 [facility] HospitalZuissnoKATJQFWUOE0501-26-18 18:07:00* Test Item Value Reference Range Interpretation Comme nts Gamma Glob (test code = Gamma Glob) 0.97 0.71-1.57 [facility] HospitalWaxqiqdRNXAUXZRPD5170-42-00 18:07:00* Test Item Value Reference Range Interpretation Comme nts SPE Interp (test code = SPE Interp) Total protein is decreased with a corresponding decrease in serum albumin. All globulin fractions are present in a normal distribution with minor nonspecific changes. No monoclonal proteins are identified. Interpretation performed at [facility]. [facility] HospitalDatprtvLAXCBBPTWC0271-44-48 18:07:00* Test Item Value Reference Range Interpretation Comme nts Tot Prot (SPE) (test code = Tot Prot (SPE)) 6.2 6.4-8.4 [facility] HospitalZcrrynwGLYETOAWXR9840-52-96 18:07:00* Test Item Value Reference Range Interpretation Comme nts Alpha 2 Glob (test code = Alpha 2 Glob) 0.67 0.45-1. 00 [facility] HospitalOvukchuVQZLDWYFFN1676-95-75 18:07:00* Test Item Value Reference Range Interpretation Comme nts Gamma % (test code = Gamma %) 15.7 11.1-18.7 [facility] HospitalGyfixrgXYVUGBLIIR3371-01-51 18:07:00* Test Item Value Reference Range Interpretation Comme nts Albumin (SPE) (test code = A lbumin (SPE)) 3.51 3.57-5.55 [facility] HospitalFhahznqRNSZLHFFTZ9014-85-69 18:07:00* Test Item Value Reference Range Interpretation Comme nts Alpha 1 Glob (test code = Alpha 1 Glob) 0.40 0.18-0. 41 [facility] HospitalWosnvclTZNSCLWCAY3432-33-11 18:07:00* Test Item Value Reference Range Interpretation Comme nts Beta % (test code = Beta %) 10.4 7.8-13.7 [facility] HospitalYoeyehnYJFVNGDGBF1762-07-16 18:07:00* Test Item Value Reference Range Interpretation Comme nts Albumin % (test code = Albumin %) 56.6 55.8-66.1 [facility] HospitalLsbmkfmRDYWXEUGKC1191-52-85 18:07:00* Test Item Value Reference Range Interpretation Comme nts Beta Glob (test code = Beta Glob) 0.64 0.50-1.15 [facility] HospitalEueohlxKXSVUMAHIC2560-84-75 18:07:00* Test Item Value Reference Range Interpretation Comme nts GM-1 IgG (test code = GM-1 IgG) <1:100 [facility] HospitalAucwccjMKJDVOVOLE1134-74-19 18:07:00* Test Item Value Reference Range Interpretation Comme nts NANETTE Ser Interp (test code = NANETTE Ser Interp) Serum immunofixation electrophoresis reveals a polyclonal pattern of immunoglobulins. No monoclonal proteins are identified. Interpretation performed at [facility]. [facility] HospitalNdlrutfQZJCLAMVNF3750-51-74 18:07:00* Test Item Value Reference Range Interpretation Comme [facility] NANETTE Ser Pattern (test code = NANETTE Ser Pattern) Diffusely immunoreactive bands are noted in the IgG, IgA, IgM, kappa and lambda lanes. No monoclonal bands are identified. Interpretation performed at [facility]. [facility] HospitalEgabhgnHKFVNIQEEZ2832-42-81 18:07:00* Test Item Value Reference Range Interpretation Comme nts PE Interp CSF (test code = PE Interp CSF) CSF protein electrophoresis did not reveal evidence of an oligoclonal process in the SQL REPORT ANALYST. The CSF IgG index is within the reference range indicating that there is no elevation in intracerebral IgG synthesis. The electronic medical record has been reviewed for relevant history. I have personally reviewed the test results and concur with the resident's interpretation. CPT: 21110-ZT [facility] HospitalUaphtilZBSJXKJYWN6904-61-90 18:07:00* Test Item Value Reference Range Interpretation Comme nts Description CSF (test code = Description CSF) The gel demonstrates appropriate resolution of the main protein bands. The gamma region shows continuous distribution of proteins both in the CSF and in the serum. No oligoclonal bands are detected. [facility]CT[facility] - [id number] 11:46:00* Test Item Value Reference Range Interpretation Comme nts MRSA by PCR (test code = MRSA by PCR) Negative (04/14/18 5:46 AM) [facility] YywhwakBWTEXQJYAD7483-60-75 11:46:00* Test Item Value Reference Range Interpretation Comme nts HIV. (test code = HIV.) Negative *NA*(04/14/18 5:46 AM) [facility] [id number] 11:41:00* Test Item Value Reference Range Interpretation Comme nts UA Urobilinogen (test code = UA Urobilinogen) <=1.0 mg/dL 0.1-1.0 [facility] [id number] 11:41:00* Test Item Value Reference Range Interpretation Comme nts UA Color (test code = UA Color) Light Yellow *NA*(04/14/18 5:41 AM) [facility] [id number] 11:41:00* Test Item Value Reference Range Interpretation Comme nts UA Spec Grav (test code = UA Spec Grav) 1.030 1 [facility] [id number] 11:41:00* Test Item Value Reference Range Interpretation Comme nts UA Turbidity (test code = UA Turbidity) Clear (04/14/18 5:41 AM) [facility] [id number] 11:41:00* Test Item Value Reference Range Interpretation Comme nts UA pH (test code = UA pH) 5.0 1 5.0-8.0 [facility] [id number] 11:41:00* Test Item Value Reference Range Interpretation Comme nts UA Protein (test code = UA Protein) Negative (04/14/18 5:41 AM) [facility] HermannURINE AND [id number] 11:41:00* Test Item Value Reference Range Interpretation Comme nts UA Bili (test code = UA Bili) Negative *NA*(04/14/18 5:41 AM) [facility]ann[facility] AND [id number] 11:41:00* Test Item Value Reference Range Interpretation Comme nts UA Ketones (test code = UA Ketones) 80 mg/dL [facility] [id number] 11:41:00* Test Item Value Reference Range Interpretation Comme nts UA Glucose (test code = UA Glucose) Negative *NA*(04/14/18 5:41 AM) [facility] AND [id number] 11:41:00* Test Item Value Reference Range Interpretation Comme nts UA Blood (test code = UA Blood) Moderate *ABN*(04/14/18 5:41 AM) [facility] AND [id number] 11:41:00* Test Item Value Reference Range Interpretation Comme nts UA Leuk Est (test code = UA Leuk Est) Negative (04/14/18 5:41 AM) [facility] AND [id number] 11:41:00* Test Item Value Reference Range Interpretation Comme nts UA Nitrite (test code = UA Nitrite) Negative (04/14/18 5:41 AM) [facility] AND [id number] 11:41:00* Test Item Value Reference Range Interpretation Comme nts UA WBC (test code = UA WBC) 3 See_Comment [Automated messa ge] The system which generated this result transmitted reference range: <=5. The reference range was not used to interpret this result as normal/abnormal. [facility] AND [id number] 11:41:00* Test Item Value Reference Range Interpretation Comme nts UA Sq Epi (test code = UA Sq Epi) Occasional /LPF [facility] AND [id number] 11:41:00* Test Item Value Reference Range Interpretation Comme nts UA Mucus (test code = UA Mucus) Few /LPF [facility] AND [id number] 11:41:00* Test Item Value Reference Range Interpretation Comme nts UA Bacteria (test code = UA Bacteria) None Seen (04/14/18 5:41 AM) [facility] AND [id number] 11:41:00* Test Item Value Reference Range Interpretation Comme nts UA RBC (test code = UA RBC) no gt See_Comment [Automated [employer]a ge] The system which generated this result transmitted reference range: <=2. The reference range was not used to interpret this result as normal/abnormal. [facility]
[2023-09-15] MEDS ORDERED: HYDROCODONE/APAP 5/325 MG TAB ONE (17:03)
--- NOTE | 2023-09-15 17:32 | ER ---
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 Pt states that she got dizzy and then does not remember what happened. Pt reports LOC, head pain, and pain to the left side of her body.. Coronavirus screen: Client denies travel out of the [place] in the last 14 days. At this time, the client does not indicate any symptoms associated with coronavirus-19. Ebola Screen: Patient denies travel to an Ebola-affected area in the 21 days before illness onset. No symptoms or risks identified at this time. Initial Sepsis Screen: Does the patient meet any 2 criteria? No. Patient's initial sepsis screen is negative. Does the patient have a suspected source of infection? No. Patient's initial sepsis screen is negative. Risk Assessment: Do you want to hurt yourself or someone else? Patient reports no desire to harm self or others. Onset of symptoms was September 15, 2023. 16:07 Method Of Arrival: Ambulatory ll1 16:07 Acuity: BILL 3 ll1 Triage Assessment: 16:09 General: Appears in no apparent distress. comfortable, Behavior is calm, cooperative. ll1 Historical: - Allergies: 16:08 Adhesives; ll1 16:08 Cinnamon; ll1 16:08 Phenergan; ll1 - PMHx: 16:08 chronic constipation; Endometrosis; gullian barre syndrome; Ovarian cyst; ll1 - Immunization history:: Adult Immunizations up to date. - Infectious Disease History:: Denies. - Social history:: Smoking status: Patient denies any tobacco usage or history of. Screenin:54 [facility] ED Fall Risk Assessment (Adult) History of falling in the last 3 months, bp including since admission No falls in past 3 months (0 pts). Abuse screen: Denies threats or abuse. Denies injuries from another. Nutritional screening: No deficits noted. Tuberculosis screening: No symptoms or risk factors identified. Assessment: 17:53 Reassessment: DC HOME AMBULATORY WITH FAMILY. bp Vital Signs: 16:07 BP 107 / 65; Pulse 81; Resp 18; Temp 97.9; Pulse Ox 99% on R/A; Weight 50.8 kg; Height ll1 5 ft. 3 in. ; Pain 7/10; 16:07 Body Mass Index 19.84 (50.80 kg, 160.02 cm) ll1 16:07 Pain Scale: Adult ll1 ED Course: 15:58 Patient arrived in ED. ts1 16:05 Barbie Sprague PA-C is PHCP. sb4 16:05 Walter Jones MD is Attending Physician. sb4 16:08 Triage completed. ll1 16:09 Arm band placed on Patient placed in an exam room, on a stretcher. ll1 16:29 Aram Ford, RN is Primary Nurse. bp 16:35 Radiology exam delayed due to test not completed at this time. ls3 17:54 Patient has correct armband on for positive identification. bp 17:54 No provider procedures requiring assistance completed. Patient did not have IV access bp during this emergency room visit. Administered Medications: 17:15 Drug: HYDROcodone-acetaminophen PO 5 mg-325 mg 1 tabs PO once Route: PO; bp 17:55 Follow up: Response: No adverse reaction bp Medication: 17:54 VIS not applicable for this client. bp Outcome: 17:31 Discharge ordered by . sb4 17:54 Discharged to home ambulatory, bp 17:54 Condition: stable 17:54 Discharge instructions given to patient, Instructed on discharge instructions, follow up and referral plans. Demonstrated understanding of instructions, follow-up care, 17:55 Patient left the ED. bp Signatures: Aram Ford, RN RN bp Lavinia Garner ls3 Margareth Nunez RN RN ll1 Barbie Sprague PA-C PA-C sb4 Yasmine Gomez PAS PAS ts1
--- NOTE | 2023-09-15 17:32 | EDPHYS ---
Physician Documentation [facility] Name: Kiana Mccain Age: 23 yrs Sex: Female : 2000 Arrival Date: 09/15/2023 Time: 15:58 Bed 7 Private MD: ED Physician Walter Jones HPI: 09/14 16:27 This 23 yrs old Female presents to ER via Ambulatory with complaints of Fall Injury. 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 states she fell sb4 on the left side of her body- including her head. family states she did lose consciousness. patient does not recall the events. she states she feels dizzy and pain in her head and side. Historical: - Allergies: 16:08 Adhesives; ll1 16:08 Cinnamon; ll1 16:08 Phenergan; ll1 - PMHx: 16:08 chronic constipation; Endometrosis; gullian barre syndrome; Ovarian cyst; ll1 - Immunization history:: Adult Immunizations up to date. - Infectious Disease History:: Denies. - Social history:: Smoking status: Patient denies any tobacco usage or history of. ROS: 16:27 Constitutional: Negative for fever, chills, and weight loss, sb4 16:27 MS/extremity: Positive for injury or acute deformity, pain, per HPI, 16:27 Neuro: Positive for dizziness, headache, loss of consciousness, Exam: 17:21 Constitutional: This is a well developed, well nourished patient who is awake, alert, sb4 and in no acute distress. Head/Face: Normocephalic, atraumatic. Eyes: Extra-ocular motions intact. Periorbital areas with no swelling, redness, or edema. ENT: Mucous membranes moist. Cardiovascular: Regular rate and rhythm with a normal S1 and S2. Respiratory: Lungs have equal breath sounds bilaterally, clear to auscultation and percussion. No rales, rhonchi or wheezes noted. No increased work of breathing, no retractions or nasal flaring. Abdomen/GI: Soft, non-tender, no distension. MS/ Extremity: Pulses equal, no cyanosis. Neurovascular intact. Full, normal range of motion. Neuro: Awake and alert, GCS 15, oriented to person, place, time, and situation. Motor strength 5/5 in all extremities. Sensory grossly intact. 17:21 Eyes: Pupils: equal, round, and reactive to light and accomodation, 17:21 Skin: injury, abrasion(s), small abrasion noted, of the anterior aspect of left lateral abdomen, 17:21 Neuro: Gait: is steady, without difficulty, Vital Signs: 16:07 BP 107 / 65; Pulse 81; Resp 18; Temp 97.9; Pulse Ox 99% on R/A; Weight 50.8 kg; Height ll1 5 ft. 3 in. ; Pain 7/10; 16:07 Body Mass Index 19.84 (50.80 kg, 160.02 cm) ll1 16:07 Pain Scale: Adult ll1 MDM: 16:11 Patient medically screened. sb4 17:30 Data reviewed: vital signs, nurses notes, and as a result, I will discharge patient. sb4 Counseling: I had a detailed discussion with the patient and/or guardian regarding the historical points, exam findings, and any diagnostic results supporting the discharge/admit diagnosis, to return to the emergency department if symptoms worsen or persist or if there are any questions or concerns that arise at home. ED course: patient states feeling better, wants to go home and rest. does not want head CT. I think this is reasonable, I have a low suspicion for closed head injury. 09/14 16:44 Order name: Test, Urine; Complete Time: 17:44 sb4 Administered Medications: 17:15 Drug: HYDROcodone-acetaminophen PO 5 mg-325 mg 1 tabs PO once Route: PO; bp 17:55 Follow up: Response: No adverse reaction bp Disposition Summary: 09/15/23 17:31 Discharge Ordered Notes: Location: Home sb4 Problem: new sb4 Symptoms: have improved sb4 Condition: Stable sb4 Diagnosis - Concussion with loss of consciousness of 30 minutes or less sb4 Followup: sb4 - With: Emergency Department - When: As needed - Reason: Trouble breathing, Worsening of condition Discharge Instructions: - Discharge Summary Sheet sb4 - Concussion, Adult, [id number] sb4 Forms: - Patient Portal Instructions sb4 - Leadership Thank You Letter sb4 Signatures: Dispatcher [employer] Aram Alonso RN RN bp Margareth Nunez RN RN ll1 Brown, Barbie, PA-C PA-C sb4
[2023-09-15 17:43] LABS: Specific Gravity 1.024 (1.005-1.030)
[2023-09-15 18:11] VITALS: BP 107/65; TEMP 97.9; O2SAT 99
== END 2023-09-15 17:55 | disposition home or self-care (01) ==
LOC: ER 15:58
DX: S06.0X1A Concussion with loss of consciousness of 30 minutes or less, initial encounter (principal); W11.XXXA Fall on and from ladder, initial encounter
CPT/HCPCS: 81025; 99283